=== PATIENT | female | born 1950 | race Caucasian/White ===

== ENCOUNTER → 2018-05-14 11:00 | Outpatient (CLI) | payer MEDICARE, SELFPAY ==
--- NOTE | 2018-05-14 10:43 | DI.REPORT_ITS ---
SYMPTOM/DIAGNOSIS: PAIN LEFT KNEE: Medial tibial femoral joint space narrowing is demonstrated. There is articular sclerosis. Minimal periarticular hypertrophic spurring is evident. The findings would be consistent with severe DJD.
== END ==
PROVIDERS: Visit Provider Orthopaedic Surgery
DX: M17.12 Unilateral primary osteoarthritis, left knee (principal); M25.562 Pain in left knee; G89.29 Other chronic pain
CPT/HCPCS: 73560; 20610; 99213; J1040

== ENCOUNTER → 2018-05-25 09:17 | Outpatient (CLI) | payer MEDICARE, SELFPAY ==
[2018-05-25 11:01] LABS: ALT 25 U/L (12-78); AST 24 U/L (15-37); Albumin 3.9 g/dL (3.4-5.0); Alkaline Phosphatase 94 U/L (46-116); Anion Gap 9.4 mmol/L (3-11); BUN 23 mg/dL (7-18); Bilirubin, Total 0.4 mg/dL (0.2-1.0); CO2 29.6 mmol/L (21.0-32.0); CREATININE 1.06 mg/dL (0.55-1.02); Calcium 9.4 mg/dL (8.5-10.1); Chloride 102 mmol/L (98-107); Cholesterol 231 mg/dL (50-200); Estimated GFR 51.55 (mL/min/1.73m2); Glucose 105 mg/dL (70-100); HDL Cholesterol 69 mg/dL (40-60); LDL CHOLESTEROL 142 mg/dL (<100); Potassium 4.4 mmol/L (3.5-5.1); Sodium 141 mmol/L (136-145); TSH (W/Ref FT4) 1.92 uIU/mL (0.358-3.74); Total Protein 7.9 g/dL (6.4-8.2); Triglyceride 111 mg/dL (30-150)
== END ==
DX: E78.2 Mixed hyperlipidemia (principal); I10 Essential (primary) hypertension; R63.8 Other symptoms and signs concerning food and fluid intake; E78.5 Hyperlipidemia, unspecified; G89.29 Other chronic pain; K21.9 Gastro-esophageal reflux disease without esophagitis; M25.562 Pain in left knee
CPT/HCPCS: 36415; 80053; 80061; 83721; 84443

== ENCOUNTER 2018-07-03 10:40 | Outpatient (CLI) | payer MEDICARE, SELFPAY ==
[2018-07-03 11:10] LABS: Abs Immature Grans 0.01 k/cumm (0.0-0.09); Absolute Basophil Count 0.03 k/cumm (0.0-0.2); Absolute Eosinophil Count 0.12 k/cumm (0.0-0.7); Absolute Lymphocyte Count 1.59 k/cumm (1.2-3.4); Absolute Monocyte Count 0.85 k/cumm (0.11-0.7); Absolute Neutrophil Count 6.88 k/cumm (1.2-6.7); Basophils % 0.3; Eosinophils % 1.3; HCT 41.3 % (36.0-46.0); HGB 13.2 g/dL (12.0-15.5); Immature Grans % 0.1; Lymphocytes % 16.8; Mean Corpuscular Hemoglobin 29.7 pg (27.0-33.0); Mean Platelet Volume 10.3 fL (8.0-11.0); Neutrophils % 72.5; Platelet Count 186 x1000/uL (130-400); RBC 4.44 m/cumm (4.00-5.20); RBC Distribution Width 13.2 % (11.7-14.6); White Blood Cell Count 9.48 k/cumm (4.4-10.8)
[2018-07-03 11:27] LABS: ALT 30 U/L (12-78); AST 20 U/L (15-37); Albumin 3.4 g/dL (3.4-5.0); Alkaline Phosphatase 103 U/L (46-116); Anion Gap 5.6 mmol/L (3-11); BUN 21 mg/dL (7-18); Bilirubin, Total 0.4 mg/dL (0.2-1.0); CO2 30.4 mmol/L (21.0-32.0); CREATININE 1.01 mg/dL (0.55-1.02); Calcium 9.2 mg/dL (8.5-10.1); Chloride 101 mmol/L (98-107); Estimated GFR 54.51 (mL/min/1.73m2); Glucose 94 mg/dL (70-100); Potassium 4.5 mmol/L (3.5-5.1); Sodium 137 mmol/L (136-145); Total Protein 7.4 g/dL (6.4-8.2)
== END 2018-07-03 11:00 ==
PROVIDERS: Visit Provider Internal Medicine Medical Oncology
DX: C50.912 Malignant neoplasm of unspecified site of left female breast (principal)
CPT/HCPCS: 36415; 80053; 85025

== ENCOUNTER 2018-09-03 14:24 | Outpatient (CLI) | payer MEDICARE, SELFPAY ==
[2018-09-03 15:39] LABS: Hemoglobin A1C 5.8 % (4.5-6.2)
[2018-09-03 15:40] LABS: ALT 24 U/L (12-78); AST 18 U/L (15-37); Albumin 3.7 g/dL (3.4-5.0); Alkaline Phosphatase 86 U/L (46-116); Anion Gap 10.5 mmol/L (3-11); BUN 20 mg/dL (7-18); Bilirubin, Total 0.3 mg/dL (0.2-1.0); CO2 28.5 mmol/L (21.0-32.0); Calcium 9.9 mg/dL (8.5-10.1); Chloride 100 mmol/L (98-107); Estimated GFR 49.39 (mL/min/1.73m2); Glucose 124 mg/dL (70-100); Sodium 139 mmol/L (136-145); Total Protein 7.4 g/dL (6.4-8.2)
== END 2018-09-03 14:44 ==
PROVIDERS: Visit Provider Internal Medicine
DX: R73.9 Hyperglycemia, unspecified (principal); I10 Essential (primary) hypertension; K21.9 Gastro-esophageal reflux disease without esophagitis
CPT/HCPCS: 36415; 80053; 83036

== ENCOUNTER 2019-06-17 06:28 | Outpatient (CLI) | payer MEDICARE, SELFPAY ==
[2019-06-17 08:30] LABS: ALT 24 U/L (14-59); AST 18 U/L (15-37); Albumin 3.5 g/dL (3.4-5.0); Alkaline Phosphatase 95 U/L (46-116); Anion Gap 5.3 mmol/L (3-11); BUN 23 mg/dL (7-18); Bilirubin, Total 0.4 mg/dL (0.2-1.0); CO2 32.7 mmol/L (21.0-32.0); Calcium 9.9 mg/dL (8.5-10.1); Calculated LDL 118 mg/dL; Chloride 102 mmol/L (98-107); Cholesterol 207 mg/dL (50-200); Estimated GFR 49.25 (mL/min/1.73m2); Glucose 93 mg/dL (70-100); HDL Cholesterol 55 mg/dL (40-60); Potassium 4.3 mmol/L (3.5-5.1); Sodium 140 mmol/L (136-145); Total Protein 7.1 g/dL (6.4-8.2); Triglyceride 171 mg/dL (30-150)
== END 2019-06-17 06:48 ==
DX: E78.5 Hyperlipidemia, unspecified (principal); I10 Essential (primary) hypertension; K21.9 Gastro-esophageal reflux disease without esophagitis; G47.00 Insomnia, unspecified
CPT/HCPCS: 36415; 80053; 80061; 84443

== ENCOUNTER 2019-10-19 16:00 | Outpatient (REF) | payer MEDICARE, SELFPAY ==
--- NOTE | 2019-10-19 14:30 | SKI_PTH ---
PATIENT: LAUREL MONGE LOC: [facility] U#:[id number] AGE/SX: 69/F ROOM: RE10/19/[address]: Marialuisa Murdock APRN : 1950 BED: DIS: 10/19/2019 SPEC #: [id number] RECD: 10/20/19 12:37 STATUS: DWAYNE REKaran #: [id number] MORELIA: 10/19/19 14:[address]: Marialuisa Murdock DEPT: Surgical Specimen RECD BY: Daphnie Gomez Tissues: 1 - SKIN BIOPSY(SHAVE/PUNCH) Procedures: SKIN LEVEL 4 Comments: [id number]
== END 2019-10-19 16:20 ==
LOC: LBN 16:00
DX: L82.1 Other seborrheic keratosis (principal)
CPT/HCPCS: 88305

== ENCOUNTER 2019-11-02 09:37 | Emergency (ER) | payer MEDICARE, SELFPAY ==
[2019-11-02 09:41] VITALS: BP 159/67; PULSE 106; RESP 20; TEMP 36.7; O2SAT 92
--- NOTE | 2019-11-02 09:41 | ED.GENADUL_ITS ---
Discharge Plan Disposition Patient Disposition: HOME Condition: Improving Discharge Details Chief Complaint: GenMedical Clinical Impression: Mass of left lung, Bone mass, Chronic nausea Primary Care Provider: Marialuisa Murdock ED Provider: Danae Tate Home Meds and New Rx's Prescriptions: New prochlorperazine maleate [Compazine] 10 mg tablet 10 mg PO Q6H PRN (Reason: nausea and vomiting) Qty: 10 RF: 0 Continued fluticasone propionate 50 mcg/actuation spray,suspension 2 spray NS DAILY Qty: 9.9 RF: 6 metformin 500 mg tablet extended release 24hr 500 mg PO DAILY Qty: 90 RF: 4 lorazepam 1 mg tablet 1 mg PO DAILY PRN (Reason: anxiety) Qty: 20 RF: 0 calcium carbonate-vitamin D3 1 EACH tablet 1 ea PO BID RF: 0 acetaminophen 500 MG tablet 2 tab PO TID PRNRF: 0 esomeprazole magnesium [Nexium] 40 mg capsule,delayed release(DR/EC) 40 mg PO DAILY Qty: 90 RF: 3 losartan-hydrochlorothiazide 100-25 mg tablet 1 tab PO DAILY Qty: 90 RF: 3 polyethylene glycol 3350 [Miralax] 17 gram powder in packet 17 gm PO DAILY PRN (Reason: constipation) Qty: 100 RF: 4 aspirin 81 mg Tablet,Chewable 81 mg PO BID RF: 0 lovastatin 20 mg tablet 40 mg PO DAILY RF: 0 Discharge Instructions Instructions: Acute Nausea and Vomiting (ED) Additional Instructions: You will receive a call from [facility] today to schedule a follow-up appointment with doing better tomorrow. If you do not hear from the office before 4 PM, call them to schedule this appointment for tomorrow. Take the Zofran or Compazine as needed directed for nausea and vomiting. Drink plenty of fluids and follow a bland diet of crackers, toast, applesauce, soup. Return to the emergency department at any time if you develop any worsening or new concerning symptoms. Discharge Data Discharge Physician: Danae Tate Medical Decision Making 7149 -- 69-year-old female with a history of obesity, hypertension, hyperlipidemia, GERD, breast cancer w/ L breast lumpectomy presents with nausea and decreased appetite for the past few weeks. She also stated that she has a lump to her right chest that she noticed a few weeks ago which she thinks has grown in size and is tender. She states she has lost about 10 pounds in the last few months but she states she has had not much of an appetite. She denies any fever, vomiting, diarrhea, chest pain. She does admit to intermittent shortness of breath at times as well as intermittent lower abdominal pain. She denies any urinary symptoms. She has seen her PCP recently for these complaints and was referred for an outpatient CT neck and chest which is scheduled for this . On exam, patient points to her medial clavicle as the area of a lump, it appears consistent with a bony protuberance and does not appear consistent with an absc ess, lipoma, mass. It does not appear consistent with an infection or trauma. She appears to breathe heavy at times, but she states she does not feel short of breath and she feels that she is doing this because she is nervous. Her lungs are clear. Her abdomen is soft and nontender. Normal ENT exam. Differential diagnosis includes pneumonia, gastritis, peptic ulcer disease, GERD, acute lung or abdomen abnormality. Will place an IV, bolus IV fluids, Pepcid, Compazine and obtain a CT neck, chest and abdomen. 1210 --CT notes a large mass left lower lobe concerning for neoplasm. There is also associated adenopathy and pericardial effusion. Right clavicle suspicious for metastasis. Labs reviewed and note a magnesium of 1.4, repleted. Normal troponin. Urinalysis small leukocytes, but appears contaminated. Results discussed with patient and she would prefer to go home. She states her nausea is much improved. She was was offered admission but declined. Will call PCP to arrange for outpatient follow-up. 1400 -- Case discussed with patient's PCP Marialuisa Murdock -we will follow-up with patient in the office tomorrow. Appointment made for 12:40 PM for her to discuss her results with plan for outpatient referrals to assist with diagnosis of mass. Patient was able to drink and eat here without any further nausea. She was given Compazine to go as well as prescription. She was advised to return here at anytime with any worsening symptoms. Medical Records Medical records reviewed: Yes I reviewed the patient's medical records. Imaging Data Radiologic Study: Radiologist's impression: CT NECK CHEST ABD PEL W CLINICAL HISTORY: bony lump R medial clavicle, chronic nausea TECHNIQUE: Post IV contrast. Without oral contrast. Exam is limited by the patient's body habitus and positioning of the patient's arms at her sides. COMPARISON: No exams were available for comparison FINDINGS: Neck CT: There is vague increased soft tissue density seen in the medial aspect of the right pectoral muscle, anterior to the proximal right clavicle. There is no evidence of fracture or bony destruction. An additional irregular area is seen in the anterior subcutaneous fat more toward the midline, anterior to the lower pole of the right thyroid. The thyroid itself appears normal. The parotid and submandibular glands also appear normal. The visualized portions of the sinuses and mastoid air cells appear clear. Dental work creates artifact. There are small bilateral jugular chain lymph nodes which are not definitely pathologically enlarged. There is calcification of both common carotid bulbs, left greater than right. Chest CT: There is a moderate-sized pericardial effusion. No pleural effusions are seen. There is a mass in the superior segment of the left lower lobe extending from the hilum posteriorly to the pleura. It measures 5 x 3.6 by 5 cm. There is distal bronchial obstruction and atelectasis. Additional area of vague nodularity is seen anteriorly in the left upper lobe along the pleura. There is adenopathy in the right hilar region as well as subcarinal region. Smaller lymph nodes are seen in the right paratracheal region and AP window. A ground-glass opacity is seen superiorly in the right upper lobe. There are mild underlying emphysematous changes. Abnormal lucencies are seen in T3, T6 and a question of a few other smaller lesions more inferiorly in the thoracic spine. Abdomen and pelvis CT: The liver, spleen, gallbladder, pancreas and adrenals bjorn ear normal. There is a small hiatal hernia. There are small celiac axis lymph nodes, with the largest measuring 1.5 cm. There are small renal cysts and mild bilateral renal scarring. The patient is status post hysterectomy. The bladder is unremarkable. There are few colonic diverticula. There is no ascites, bowel dilatation or inflammatory change. The aorta shows calcification but no evidence of an aneurysm. There is abnormal sclerosis within the L5 vertebral body suspicious for metastatic lesion. IMPRESSION: Large mass in the left lower lobe suspicious for primary lung carcinoma. Adenopathy and pericardial effusion are present. The soft tissue abnormality near the right clavicle is also suspicious for metastases. Bony metastases are seen in the spine. Lab Data Lab results reviewed: Yes I reviewed the patient's lab results. Labs: Laboratory Tests Range/Units 11/02/19 11/02/19 11/02/19 10:15 10:15 10:15 WBC (4.4-10.8) k/cumm 7.97 RBC (4.00-5.20) m/cumm 4.41 Hgb (12.0-15.5) g/dL 12.9 Hct (36.0-46.0) % 39.2 MCV (80-95) fL 88.9 MCH (27.0-33.0) pg 29.3 MCHC (32.0-36.0) g/dL 32.9 RDW (11.7-14.6) % 12.7 Plt Count (130-400) x1000/uL 274 MPV (8.0-11.0) fL 9.9 Immature Gran % % 0.4 Neutrophils % 81.5 Lymphocytes % 10.4 Monocytes % 6.9 Eosinophils % 0.5 Basophils % 0.3 Absolute Neutrophils (1.2-6.7) k/cumm 6.50 Absolute Lymphocytes (1.2-3.4) k/cumm 0.83 L Absolute Monocytes (0.11-0.7) k/cumm 0.55 Absolute Eosinophils (0.0-0.7) k/cumm 0.04 Absolute Basophils (0.0-0.2) k/cumm 0.02 Sodium (136-145) mmol/L 131 L Potassium (3.5-5.1) mmol/L 4.3 Chloride (98-107) mmol/L 92 L Carbon Dioxide (21.0-32.0) mmol/L 32.0 Anion Gap (3-11) mmol/L 7.0 BUN (7-18) mg/dL 12 Creatinine (0.55-1.02) mg/dL 1.10 H Estimated GFR/1.73 m2 (mL/min/1.73m2) 49.10 Glucose (74-106) mg/dL 103 Calcium (8.5-10.1) mg/dL 9.3 Magnesium (1.8-2.4) mg/dL 1.4 L Total Bilirubin (0.2-1.0) mg/dL 0.4 AST (15-37) U/L 13 L ALT (14-59) U/L 15 Alkaline Phosphatase (46-116) U/L 96 Troponin I (<0.06) ng/Ml < 0.05 Total Protein (6.4-8.2) g/dL 7.7 Albumin (3.4-5.0) g/dL 3.3 L Lipase (73-393) U/L 98 TSH (0.36-3.74) uIU/mL Urine Color (Yellow) Urine Clarity (Clear) Urine pH (5-8) Ur Specific Sheridan (1.005-1.025) Urine Protein (Negative) mg/dL Urine Ketones (Negative) mg/dL Urine Blood (Negative) Urine Nitrite (Negative) Urine Bilirubin (Negative) Urine Urobilinogen (Up TO 0.2) EU/dL Ur Leukocyte Esterase (Negative) Urine RBC (0-2) HPF Urine WBC (0-5) HPF Ur Epithelial Cells (Negative) HPF Urine Crystals (Negative) HPF Urine Bacteria (Negative) HPF Urine Casts (Negative) LPF Urine Mucus (Negative) Urine Other (Negative) Ur Culture Indicated? Urine Glucose (Negative) mg/dL Range/Units 11/02/19 11/02/19 10:15 11:25 WBC (4.4-10.8) k/cumm RBC (4.00-5.20) m/cumm Hgb (12.0-15.5) g/dL Hct (36.0-46.0) % MCV (80-95) fL MCH (27.0-33.0) pg MCHC (32.0-36.0) g/dL RDW (11.7-14.6) % Plt Count (130-400) x1000/uL MPV (8.0-11.0) fL Immature Gran % % Neutrophils % Lymphocytes % Monocytes % Eosinophils % Basophils % Absolute Neutrophils (1.2-6.7) k/cumm Absolute Lymphocytes (1.2-3.4) k/cumm Absolute Monocytes (0.11-0.7) k/cumm Absolute Eosinophils (0.0-0.7) k/cumm Absolute Basophils (0.0-0.2) k/cumm Sodium (136-145) mmol/L Potassium (3.5-5.1) mmol/L Chloride (98-107) mmol/L Carbon Dioxide (21.0-32.0) mmol/L Anion Gap (3-11) mmol/L BUN (7-18) mg/dL Creatinine (0.55-1.02) mg/dL Estimated GFR/1.73 m2 (mL/min/1.73m2) Glucose (74-106) mg/dL Calcium (8.5-10.1) mg/dL Magnesium (1.8-2.4) mg/dL Total Bilirubin (0.2-1.0) mg/dL AST (15-37) U/L ALT (14-59) U/L Alkaline Phosphatase (46-116) U/L Troponin I (<0.06) ng/Ml Total Protein (6.4-8.2) g/dL Albumin (3.4-5.0) g/dL Lipase (73-393) U/L TSH (0.36-3.74) uIU/mL 1.71 Urine Color (Yellow) Straw Urine Clarity (Clear) Sl cloudy Urine pH (5-8) 8.5 H Ur Specific Sheridan (1.005-1.025) 1.015 Urine Protein (Negative) mg/dL Negative Urine Ketones (Negative) mg/dL Negative Urine Blood (Negative) Negative Urine Nitrite (Negative) Negative Urine Bilirubin (Negative) Negative Urine Urobilinogen (Up TO 0.2) EU/dL 0.2 Ur Leukocyte Esterase (Negative) Small H Urine RBC (0-2) HPF Negative Urine WBC (0-5) HPF 3-5 Ur Epithelial Cells (Negative) HPF Many Urine Crystals (Negative) HPF Negative Urine Bacteria (Negative) HPF Moderate Urine Casts (Negative) LPF Negative Urine Mucus (Negative) Negative Urine Other (Negative) Few transitional Ur Culture Indicated? No/sq. contamination Urine Glucose (Negative) mg/dL Negative HPI General Mode of arrival: ambulatory . Date/Time Provider Initiated Documentation: 11/02/19 09:38 . Limitations to Documentation: no limitations . Information obtained by: patient . History of Present Illness 69 year old F presents to the emergency department with the chief complaint of Nausea, decreased appetite, Patient started experiencing this week(s) (3) and it has been constant. No relieving factors improve symptom(s), No exacerbating factors reported . Patient notes loss of appetite, malaise, nausea/vomiting (No vomiting) and shortness of breath (Occasional); denies chest pain, cough, diaphoresis, fever/chills, headaches, rash, seizure, syncope and weakness. Patient did receive the following treatments prior to arrival, other (Zofran) Related Data Home Medications Medication Instructions Recorded Confirmed calcium carbonate-vitamin D3 1 ea PO BID 02/19/13 11/02/19 acetaminophen 2 tab PO TID PRN 07/24/17 11/02/19 esomeprazole magnesium 40 mg 40 mg PO DAILY #90 tab-cap 05/01/19 11/02/19 capsule,delayed release fluticasone propionate 50 2 spray NS DAILY #9.9 gm 06/01/19 11/02/19 mcg/actuation nasal spray,suspension metformin 500 mg tablet,extended 500 mg PO DAILY #90 tab 06/01/19 11/02/19 release 24hr losartan 100 1 tab PO DAILY #90 tab 06/04/19 11/02/19 mg-hydrochlorothiazide 25 mg tablet lorazepam 1 mg tablet 1 mg PO DAILY PRN #20 tab 06/24/19 11/02/19 polyethylene glycol 3350 17 gram 17 gm PO DAILY PRN #100 each 06/26/19 11/02/19 oral powder packet aspirin 81 mg PO BID 11/02/19 11/02/19 lovastatin 40 mg PO DAILY 11/02/19 11/02/19 prochlorperazine maleate 10 mg PO Q6H PRN #10 tab 11/02/19 [Compazine] Previous Rx's Medication Instructions Recorded esomeprazole magnesium 40 mg 40 mg PO DAILY #90 tab-cap 05/01/19 capsule,delayed release fluticasone propionate 50 2 spray NS DAILY #9.9 gm 06/01/19 mcg/actuation nasal spray,suspension metformin 500 mg tablet,extended 500 mg PO DAILY #90 tab 06/01/19 release 24hr losartan 100 1 tab PO DAILY #90 tab 06/04/19 mg-hydrochlorothiazide 25 mg tablet lorazepam 1 mg tablet 1 mg PO DAILY PRN #20 tab 06/24/19 polyethylene glycol 3350 17 gram 17 gm PO DAILY PRN #100 each 06/26/19 oral powder packet prochlorperazine maleate 10 mg PO Q6H PRN #10 tab 11/02/19 [Compazine] Allergies Allergy/AdvReac Type Severity Reaction Status Date / Time meloxicam AdvReac Severe GI UPSET Verified 11/02/19 09:52 atorvastatin AdvReac Intermediate GI Verified 11/02/19 09:52 INTOLERANCE azithromycin AdvReac Intermediate INTOLERANCE Verified 11/02/19 09:52 simvastatin AdvReac Intermediate INTOLERANCE Verified 11/02/19 09:52 lisinopril AdvReac Mild cough Verified 11/02/19 09:52 Review of Systems All systems reviewed & are unremarkable except as noted in HPI and below Constitutional Constitutional: Reports as per HPI, Denies chills, Reports fatigue, Denies fever(s) and Reports poor appetite Eyes Eyes: Denies blurry vision ENT Ears, Nose, Mouth, and Throat: Denies dizziness, Denies sore throat and Denies throat swelling Cardiovascular Cardiovascular: Denies chest pain and Denies dyspnea Respiratory Respiratory: Denies cough and Denies dyspnea Gastrointestinal Gastrointestinal: Denies abdominal pain, Denies diarrhea, Reports nausea and Denies vomiting Genitourinary Genitourinary: Denies hematuria and Denies dysuria Musculoskeletal Musculoskeletal: Denies back pain and Denies numbness Integumentary/Breasts Skin/Breast: Denies lesions and Denies rash Neurologic Neurologic: Denies dizziness, Denies focal weakness and Denies numbness Endocrine Endocrine: Reports fatigue Allergic/Immunologic Allergic/Immunologic: Denies throat swelling [facility] Medical History Adopted Adopted (Chronic) Chest discomfort (Acute) Chronic pain of left knee (Chronic 04/11/16) She sees Dr. Gee for this. Colon polyp (Chronic 05/09/14) 04/23/14 tubular adenoma x 2 08/2017 tubular adenoma x 8 Ear pain, left (Chronic) ? 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 Nausea alone (Acute) Neck discomfort (Acute) Neck pain (Chronic) Neoplasm of breast Otitis externa (Acute) Phlebitis (Resolved 02/19/13) Seasonal allergies (Acute) Seborrheic keratosis (Acute) Tubular adenoma Tubular adenoma (Chronic 08/12/17) Varicose veins of lower extremity Varicose veins of lower extremity (Chronic) h/o phlebitis Weight loss, non-intentional (Acute) Surgical History Abdominal hysterectomy BSO 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; DCIS; lobular CA in situ Colonoscopy - MAC (08/12/17) EGD - MAC (08/30/14) Social History Smoking/Tobacco Use Status: Former Tobacco Use Quit Date: 10/07/84 Tobacco: How many years used: 20 Second Hand Exposure: Yes Alcohol Intake: former Drug use: Never Substance use type: does not use Counseling given: No Counseling provided: none Adopted: Yes Caregiver/Support person: No Household members: spouse Housing: house Communication Needs: None Do you need help understanding health information?: Never Pets and animals: Yes Pets and animals: cat(s) Current gender identity: female What is your relationship status?: How often do you talk on the phone with friends or family?: once per week How often do you get together with friends or relatives?: once per week How often do you attend evangelical or yazidi services?: decline to answer Do you belong to any clubs or organized social groups?: no Panel score (0-1 are the most socially isolated patients): 1 What type of physical activity do you participate in: decline to answer Duration: decline to answer Frequency: decline to answer Keli/Roman Catholic: Buddhist Special keli needs: No Seatbelt use: always Drive intox or ride w/intox bus driver: No Do you feel safe at home: Yes Do you feel safe in your relationship?: Yes Exam Const General: cooperative, healthy appearing and no acute distress HENMT Head: normal to inspection Ears: hearing grossly normal bilaterally, external ears normal and TM's normal bilaterally General nose exam: external nose normal Face and sinus: normal facial exam Throat: posterior oropharynx normal Eyes General: appearance normal, both eyes and all related structures EOM: EOM intact bilaterally Neck Neck: normal visual inspection and No submandibular swelling Lymphatic: no lymphadenopathy noted Chest Chest: normal inspection of the chest and no tenderness Chest/axillae images: 1. An approximate 2 x 3 cm bony protuberance right medial clavicle. No overlying erythema, edema, ecchymosis, rash or lesions. No crepitus or step- off. Resp Effort & Inspection: normal respiratory effort and able to speak in complete sentences Auscultation: clear to auscultation bilaterally Cardio Rate: regular rate Rhythm: regular rhythm GI Inspection: normal to inspection Palpation: soft, not firm, not rigid and nontender Auscultation: normal bowel sounds Back/Spine/Pelvis Thoracic/Lumbar Spine: thoracic and lumbar spine normal to inspection Skin General skin exam: no rashes or lesions noted Neuro General: alert, awake and oriented x3 Cognition: normal cognition Speech: speech normal Motor: muscle tone normal throughout Sensory Exam: no sensory deficits noted Extrem General: normal to inspection, full ROM, normal capillary refill, no calf tenderness bilaterally and no edema Psych Appearance: grossly normal Mental Status: mental status grossly normal Speech and Movement: speech and movement normal Affect: normal affect
[2019-11-02] MEDS: Normal Saline 1,000 ML 1000 ML IV (10:23)
[2019-11-02] MEDS: Prochlorperazine 10 MG/2 ML VIAL IVP (10:23)
[2019-11-02] MEDS: FAMOTIDINE 20 MG/50 ML BAG 200 MG IVPB (10:23)
[2019-11-02 10:43] LABS: Abs Immature Grans 0.03 k/cumm (0.0-0.09); Absolute Basophil Count 0.02 k/cumm (0.0-0.2); Absolute Eosinophil Count 0.04 k/cumm (0.0-0.7); Absolute Lymphocyte Count 0.83 k/cumm (1.2-3.4); Absolute Monocyte Count 0.55 k/cumm (0.11-0.7); Basophils % 0.3; Eosinophils % 0.5; HCT 39.2 % (36.0-46.0); HGB 12.9 g/dL (12.0-15.5); Immature Grans % 0.4 %; Lymphocytes % 10.4; Mean Corp. HGB Concentration 32.9 g/dL (32.0-36.0); Mean Corpuscular Hemoglobin 29.3 pg (27.0-33.0); Mean Corpuscular Volume 88.9 fL (80-95); Mean Platelet Volume 9.9 fL (8.0-11.0); Monocytes % 6.9; Neutrophils % 81.5; Platelet Count 274 x1000/uL (130-400); RBC 4.41 m/cumm (4.00-5.20); RBC Distribution Width 12.7 % (11.7-14.6); White Blood Cell Count 7.97 k/cumm (4.4-10.8)
[2019-11-02 10:51] LABS: ALT 15 U/L (14-59); AST 13 U/L (15-37); Albumin 3.3 g/dL (3.4-5.0); Alkaline Phosphatase 96 U/L (46-116); BUN 12 mg/dL (7-18); Bilirubin, Total 0.4 mg/dL (0.2-1.0); Calcium 9.3 mg/dL (8.5-10.1); Chloride 92 mmol/L (98-107); Glucose 103 mg/dL (74-106); Magnesium 1.4 mg/dL (1.8-2.4); Potassium 4.3 mmol/L (3.5-5.1); Sodium 131 mmol/L (136-145); Total Protein 7.7 g/dL (6.4-8.2); Troponin I < 0.05 ng/Ml (<0.06)
[2019-11-02] MEDS: Omnipaque 350 MG/ML 50 ML BTL IJ (11:09)
[2019-11-02] MEDS: Omnipaque 350 MG/ML 100 ML BTL IJ (11:09)
--- NOTE | 2019-11-02 11:10 | DI.CT_ITS ---
EXAM: CT NECK CHEST ABD PEL W CLINICAL HISTORY: bony lump R medial clavicle, chronic nausea TECHNIQUE: Post IV contrast. Without oral contrast. Exam is limited by the patient's body habitus and positioning of the patient's arms at her sides. COMPARISON: No exams were available for comparison FINDINGS: Neck CT: There is vague increased soft tissue density seen in the medial aspect of the right pectora l muscle, anterior to the proximal right clavicle. There is no evidence of fracture or bony destruct ion. An additional irregular area is seen in the anterior subcutaneous fat more toward the midline, anterior to the lower pole of the right thyroid. The thyroid itself appears normal. The parotid and submandibular glands also appear normal. The visualized portions of the sinuses and mastoid air myra ls appear clear. Dental work creates artifact. There are small bilateral jugular chain lymph nodes which are not definitely pathologically enlarged. There is calcification of both common carotid bulb s, left greater than right. Chest CT: There is a moderate-sized pericardial effusion. No pleural effusions are seen. There is a mass in the superior segment of the left lower lobe extending from the hilum posteriorly to the pleu ra. It measures 5 x 3.6 by 5 cm. There is distal bronchial obstruction and atelectasis. Additional area of vague nodularity is seen anteriorly in the left upper lobe along the pleura. There is adeno duc in the right hilar region as well as subcarinal region. Smaller lymph nodes are seen in the ri ght paratracheal region and AP window. A ground-glass opacity is seen superiorly in the right upper lobe. There are mild underlying emphysematous changes. Abnormal lucencies are seen in T3, T6 and a question of a few other smaller lesions more inferiorly in the thoracic spine. Abdomen and pelvis CT: The liver, spleen, gallbladder, pancreas and adrenals appear normal. There is a small hiatal hernia. There are small celiac axis lymph nodes, with the largest measuring 1.5 cm. There are small renal cysts and mild bilateral renal scarring. The patient is status post hysterect guero. The bladder is unremarkable. There are few colonic diverticula. There is no ascites, bowel di latation or inflammatory change. The aorta shows calcification but no evidence of an aneurysm. Ther e is abnormal sclerosis within the L5 vertebral body suspicious for metastatic lesion. IMPRESSION: Large mass in the left lower lobe suspicious for primary lung carcinoma. Adenopathy and pericardial effusion are present. The soft tissue abnormality near the right clavicle is also suspicious for me tastases. Bony metastases are seen in the spine.
[2019-11-02] MEDS: MAGNESIUM SULFATE 1 GM/100 ML BAG IVPB (11:32)
[2019-11-02 11:51] LABS: Bilirubin Negative (Negative); Blood Negative (Negative); Clarity Sl Cloudy (Clear); Glucose Negative (Negative); Ketones Negative (Negative); Leukocyte Esterase Small (Negative); Nitrite Negative (Negative); Specific Gravity 1.015 (1.005-1.025); Urobilinogen 0.2 EU/dL (Up TO 0.2); pH 8.5 (5-8)
[2019-11-02 12:07] LABS: Bacteria Moderate HPF (Negative); C & S Indicated? No/Sq. Contamination; Casts Negative LPF (Negative); Crystals Negative HPF (Negative); Epithelial Cells Many HPF (Negative); Mucus Negative (Negative); Other Cells Few Transitional (Negative); RBC Negative HPF (0-2)
[2019-11-02 12:34] LABS: TSH (W/Ref FT4) 1.71 uIU/mL (0.36-3.74)
[2019-11-02 12:41] LABS: Lipase 98 U/L (73-393)
[2019-11-02 14:17] VITALS: BP 134/56; PULSE 78; RESP 20; TEMP 36.4; O2SAT 95
[2019-11-02] MEDS: Prochlorperazine 10 MG TAB 40 MG PO (14:22)
== END 2019-11-02 14:25 | disposition home or self-care (01) ==
PROVIDERS: Emergency Provider Physician Assistant
DX: R91.8 Other nonspecific abnormal finding of lung field (principal); R93.7 Abnormal findings on diagnostic imaging of other parts of musculoskeletal system; R59.1 Generalized enlarged lymph nodes; R11.0 Nausea; R63.0 Anorexia; E83.42 Hypomagnesemia; I10 Essential (primary) hypertension; Z85.3 Personal history of malignant neoplasm of breast
CPT/HCPCS: 36415; 70491; 74177; 80053; 83690; 96361; 96365; 96367; 96375; 99285; 71260; 81003; 81015; 83735; 84443; 84484; 85025; J0780; J3475; J3490; Q9967

== ENCOUNTER 2019-11-02 19:07 | Inpatient (IN) | payer MEDICARE, SELFPAY ==
[2019-11-02 19:14] VITALS: BP 138/100; PULSE 109; RESP 24; TEMP 36.4; O2SAT 98
[2019-11-02] MEDS: Normal Saline 1,000 ML 1000 ML IV (19:41)
[2019-11-02] MEDS: Ondansetron 4 MG/2 ML VIAL IVP (19:42)
[2019-11-02 19:46] LABS: Abs Immature Grans 0.02 k/cumm (0.0-0.09); Absolute Basophil Count 0.02 k/cumm (0.0-0.2); Absolute Eosinophil Count 0.07 k/cumm (0.0-0.7); Absolute Lymphocyte Count 0.86 k/cumm (1.2-3.4); Absolute Monocyte Count 0.67 k/cumm (0.11-0.7); Absolute Neutrophil Count 7.04 k/cumm (1.2-6.7); Basophils % 0.2; Eosinophils % 0.8; HCT 38.3 % (36.0-46.0); HGB 12.9 g/dL (12.0-15.5); Immature Grans % 0.2 %; Lymphocytes % 9.9; Mean Corp. HGB Concentration 33.7 g/dL (32.0-36.0); Mean Corpuscular Hemoglobin 29.7 pg (27.0-33.0); Mean Platelet Volume 9.5 fL (8.0-11.0); Monocytes % 7.7; Neutrophils % 81.2; Platelet Count 291 x1000/uL (130-400); RBC 4.35 m/cumm (4.00-5.20); RBC Distribution Width 12.8 % (11.7-14.6); White Blood Cell Count 8.68 k/cumm (4.4-10.8)
--- NOTE | 2019-11-02 19:50 | W.ED.GENAD ---
Discharge Plan Discharge Details Chief Complaint: Nausea/Vomit/Diar Admit Date/Time: 11/02/19 20:40 Admit Provider: Herman Zafar Attending Provider: Herman Zafar Primary Care Provider: Marialuisa Murdock ED Provider: Stephany Morrison Discharge Data Discharge Date/Time-TO BE ENTERED AT DEPARTURE: 11/02/19 21:20 Medical Decision Making This is a 69-year-old patient presenting to the emergency room for reevaluation after recent discharge. Patient was seen in the emergency room earlier today for nausea and vomiting difficulty tolerating p.o. fluids, fatigue and weakness. Patient reports significant fatigue as well as decreased appetite in the last month. Patient reports weight loss recently. Patient does report a cough since May. Patient's evaluation earlier in the day reveals a large lung mass with likely bony metastases and soft tissue involvement near the right clavicle. This was unknown to the patient. Patient was discharged with nausea medication and reports persistent nausea and vomiting at home. Patient was hydrated IV but is concerned that she feels dehydrated again. Patient was offered admission at her evaluation earlier in the day and declined. Patient is requesting admission at this time. Patient does not have obvious association with diarrhea. Patient denies abdominal pain. Please see previous providers note in HPI for additional details regarding patient's visit earlier in the day. Spoke with hospitalist regarding patient's request of admission after failed management of nausea and vomiting at home with oral medications. He will evaluate the patient in the emergency room. After hospitalist evaluation in the emergency room he did request addition of head CT to rule out any mets which could be causing nausea and vomiting. CT ordered. He will accept patient's admission to the hospital. Patient agrees with plan of care of admission. [facility] General Date/Time Provider Initiated Documentation: 11/02/19 19:11. HPI Narrative: Is a 69-year-old patient presenting to the emergency room for concerns of dry heaving and vomiting. Patient was seen in the emergency room earlier today for nausea and vomiting for the last 3 days. Patient ultimately had CT scan of neck, chest, abdomen and pelvis revealing a mass in her lung and lymph node involvement as well as possible metastases to spine. patient reports predominantly dry heaving. Patient reports she had been using Zofran at home with some relief and vomiting initially now reporting less effective. Patient was provided Compazine, magnesium and Pepcid today for symptomatic relief. She went home she did take Compazine at approximately 2:00 then had some scrambled eggs and dry toast and reports vomiting despite use of Compazine. Patient reports she did receive IV fluid this afternoon but continues to feel mildly dehydrated. Patient reports cough over the last several months, decrease in appetite for the last 3 to 4 weeks and significant fatigue for the last several weeks. Patient reports she has very minimal activities at home in the last few weeks. Patient denies difficulty breathing. Patient does report pleuritic type chest pain worse when coughing. Patient denies abdominal pain. Denies any extremity complaints. No other concerns or complaints at this time. Related Data Home Medications Medication Instructions Recorded Confirmed calcium carbonate-vitamin D3 1 ea PO BID 02/19/13 11/02/19 acetaminophen 2 tab PO TID PRN 07/24/17 11/02/19 esomeprazole magnesium 40 mg 40 mg PO DAILY #90 tab-cap 05/01/19 11/02/19 capsule,delayed release fluticasone propionate 50 2 spray NS DAILY #9.9 gm 06/01/19 11/02/19 mcg/actuation nasal spray,suspension metformin 500 mg tablet,extended 500 mg PO DAILY #90 tab 06/01/19 11/02/19 release 24hr losartan 100 1 tab PO DAILY #90 tab 06/04/19 11/02/19 mg-hydrochlorothiazide 25 mg tablet lorazepam 1 mg tablet 1 mg PO DAILY PRN #20 tab 06/24/19 11/02/19 polyethylene glycol 3350 17 gram 17 gm PO DAILY PRN #100 each 06/26/19 11/02/19 oral powder packet aspirin 81 mg PO BID 11/02/19 11/02/19 lovastatin 40 mg PO DAILY 11/02/19 11/02/19 prochlorperazine maleate 10 mg PO Q6H PRN #10 tab 11/02/19 11/02/19 [Compazine] Previous Rx's Medication Instructions Recorded esomeprazole magnesium 40 mg 40 mg PO DAILY #90 tab-cap 05/01/19 capsule,delayed release fluticasone propionate 50 2 spray NS DAILY #9.9 gm 06/01/19 mcg/actuation nasal spray,suspension metformin 500 mg tablet,extended 500 mg PO DAILY #90 tab 06/01/19 release 24hr losartan 100 1 tab PO DAILY #90 tab 06/04/19 mg-hydrochlorothiazide 25 mg tablet lorazepam 1 mg tablet 1 mg PO DAILY PRN #20 tab 06/24/19 polyethylene glycol 3350 17 gram 17 gm PO DAILY PRN #100 each 06/26/19 oral powder packet prochlorperazine maleate 10 mg PO Q6H PRN #10 tab 11/02/19 [Compazine] Allergies Allergy/AdvReac Type Severity Reaction Status Date / Time prochlorperazine Allergy Intermediate Agitation Unverified 11/02/19 21:09 [From Compazine] meloxicam AdvReac Severe GI UPSET Verified 11/02/19 19:19 atorvastatin AdvReac Intermediate GI Verified 11/02/19 19:19 INTOLERANCE azithromycin AdvReac Intermediate INTOLERANCE Verified 11/02/19 19:19 simvastatin AdvReac Intermediate INTOLERANCE Verified 11/02/19 19:19 lisinopril AdvReac Mild cough Verified 11/02/19 19:19 General Stated Complaint: Nausea/Vomit/Diar OSMEL: 3 Review of Systems All systems reviewed & are unremarkable except as noted in HPI and below Constitutional Constitutional: Denies chills, Reports fatigue, Denies fever(s) and Reports malaise ENT Ears, Nose, Mouth, and Throat: Denies sore throat Cardiovascular Cardiovascular: Denies chest pain at rest, Denies syncope and Denies dyspnea Respiratory Respiratory: Reports cough, Reports pain with cough and Denies dyspnea Gastrointestinal Gastrointestinal: Denies abdominal pain, Denies diarrhea, Reports nausea and Reports vomiting Genitourinary Genitourinary: Denies dysuria Neurologic Neurologic: Denies syncope Endocrine Endocrine: Reports fatigue [facility] Medical History (Updated 11/04/19 @ 09:52 by Yamileth Bueno MD) Adopted (Chronic) Chest discomfort (Acute) Chronic pain of left knee (Chronic 04/11/16) She sees Dr. Gee for this. Colon polyp (Chronic 05/09/14) 04/23/14 tubular adenoma x 2 08/2017 tubular adenoma x 8 Denial as mental defense mechanism (Chronic) helps her cope; she is self-aware of her denial Ear pain, left (Chronic) ? 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) Metastatic cancer to spine (Acute) Nausea alone (Acute) Neck discomfort (Acute) Neck pain (Chronic) Neoplasm of breast Otitis externa (Acute) Palliative care patient (Acute) Phlebitis (Resolved 02/19/13) Seasonal allergies (Acute) Seborrheic keratosis (Acute) Tubular adenoma Tubular adenoma (Chronic 08/12/17) Varicose veins of lower extremity Varicose veins of lower extremity (Chronic) h/o phlebitis Weight loss, non-intentional (Acute) Surgical History (Updated 11/04/19 @ 09:30 by Yamileth Bueno MD) Abdominal hysterectomy BSO 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 Granddaughter No problems noted. Social History (Updated 11/04/19 @ 09:35 by Yamileth Bueno MD) Smoking/Tobacco Use Status: Former Tobacco Use Quit Date: 10/07/84 Tobacco: How many years used: 20 Second Hand Exposure: Yes Alcohol Intake: former Drug use: Never Substance use type: does not use Counseling given: No Counseling provided: none Adopted: Yes Caregiver/Support person: Yes Household members: spouse Housing: house Number of Children: 1 number of grandchildren: 2 Communication Needs: Corrective Lenses Education Level: high school Do you need help understanding health information?: Often Pets and animals: Yes (Selam De La Garzaon cats x 2) Pets and animals: cat(s) Current gender identity: female What is your relationship status?: How often do you talk on the phone with friends or family?: once per week How often do you get together with friends or relatives?: once per week How often do you attend yarsani or gnosticist services?: decline to answer Do you belong to any clubs or organized social groups?: no Panel score (0-1 are the most socially isolated patients): 1 What type of physical activity do you participate in: walking, occasional exercise and sedentary lifestyle Duration: < 15 minutes/day Frequency: 1-2 times per week Keli/Temple: Zoroastrian Special keli needs: No Seatbelt use: always Drive intox or ride w/intox wedding transportation 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 They are very happy. They love to go for long car rides together. Some estrangement from daughter, unclear. Exam Narrative Exam Narrative: CONST: Patient in no acute distress. Alert and oriented. HENMT: Head nomocephalic, normal to inspection. Atraumatic. Hearing grossly normal. Mildly dry mucous membranes. No significant pharyngeal erythema. No exudates. EYES: General normal appearance. Alignment normal. Eyelids normal. Conjunctiva normal. NECK: Normal visual inspection. FROM. Trachea midline. No Midline tenderness. CHEST: Normal insepection of the chest. RESP: Normal respiratory effort. Speaking full sentences. No cough. No audible wheezing. No retractions. Breath sounds are equal bilaterally, scattered wheezes are present. CARDIO: No JVD. Regular rate and rhythm. GI: Abdomen soft, nontender. No peritoneal signs, rebound or guarding. Course Vital Signs Vital signs: Vital Signs Temperature 36.4 C 11/02/19 19:14 Pulse 109 H 11/02/19 19:14 Respiratory Rate 24 11/02/19 19:14 Blood Pressure 138/100 H 11/02/19 19:14 Pulse Oximetry 98 11/02/19 19:14 Temperature 36.4 C 11/02/19 19:14 Temperature Source Skin 11/02/19 19:14 Pulse 109 H 11/02/19 19:14 Respiratory Rate 24 11/02/19 19:14 Respiratory Effort 11/02/19 19:20 Blood Pressure 138/100 H 11/02/19 19:14 Pulse Oximetry 98 11/02/19 19:14 Oxygen Delivery Method Room Air 11/02/19 19:14 Oxygen Flow Rate 0 11/02/19 19:14 Pain Level 9 11/02/19 19:14 Lab/Test Results Lab/Test Results: Laboratory Tests Range/Units 11/02/19 19:35 WBC (4.4-10.8) k/cumm 8.68 RBC (4.00-5.20) m/cumm 4.35 Hgb (12.0-15.5) g/dL 12.9 Hct (36.0-46.0) % 38.3 MCV (80-95) fL 88.0 MCH (27.0-33.0) pg 29.7 MCHC (32.0-36.0) g/dL 33.7 RDW (11.7-14.6) % 12.8 Plt Count (130-400) x1000/uL 291 MPV (8.0-11.0) fL 9.5 Immature Gran % % 0.2 Neutrophils % 81.2 Lymphocytes % 9.9 Monocytes % 7.7 Eosinophils % 0.8 Basophils % 0.2 Absolute Neutrophils (1.2-6.7) k/cumm 7.04 H Absolute Lymphocytes (1.2-3.4) k/cumm 0.86 L Absolute Monocytes (0.11-0.7) k/cumm 0.67 Absolute Eosinophils (0.0-0.7) k/cumm 0.07 Absolute Basophils (0.0-0.2) k/cumm 0.02
[2019-11-02 20:03] LABS: ALT 15 U/L (14-59); AST 14 U/L (15-37); Albumin 3.3 g/dL (3.4-5.0); Alkaline Phosphatase 95 U/L (46-116); Anion Gap 6.8 mmol/L (3-11); BUN 11 mg/dL (7-18); Bilirubin, Total 0.3 mg/dL (0.2-1.0); CO2 30.2 mmol/L (21.0-32.0); CREATININE 1.08 mg/dL (0.55-1.02); Calcium 9.2 mg/dL (8.5-10.1); Chloride 96 mmol/L (98-107); Estimated GFR 50.16 (mL/min/1.73m2); Glucose 111 mg/dL (74-106); Potassium 3.8 mmol/L (3.5-5.1); Sodium 133 mmol/L (136-145); Total Protein 7.5 g/dL (6.4-8.2)
--- NOTE | 2019-11-02 20:29 | W.PM.HP.N ---
Date of service: 11/02/19 Time of Service: 20:29 Assessment and Plan Assessment and plan (1) Nausea: Status: Acute Assessment and plan: Nausea. No specific etiology evident at present but have to presume likely related to lung mass -- presumably lung cancer. In this regard I might check head CT to make sure no brain lesions, which could be contributing to nausea, but notably no headache. Otherwise will treat with prn Zoifran and IVF for now. As to lung lesion will consult surgery and tissue diagnosis -- bronchoscopy versus IR. Reviewed Advance directives, requests full code. History of Present Illness History of Present Illness Chief Complaint: nausea Narrative: 69 female with h/o breast cancer 2008, s/p lumpectormy/XRT; and former 2 PPD smoker -- seen earlier today with some 3-4 weeks of progressive anorexia and nausea. No abdominal pain or diarrhea. W/u of note for CT showing large LLL mass with hilar nodes, perocardial effusion and probable L5 metastatic lesion. patient sent home on oral antiemetics but returns with persistent nausea. In ER received Zofran with good effect. is admitted for ongoing management Again, mandi abdominal pain. Does note a dry cough over the past 6 months. Review of Systems All systems reviewed & are unremarkable except as noted in HPI and below PFSH Medical History Adopted Adopted (Chronic) Chest discomfort (Acute) Chronic pain of left knee (Chronic 04/11/16) She sees Dr. Gee for this. Colon polyp (Chronic 05/09/14) 04/23/14 tubular adenoma x 2 08/2017 tubular adenoma x 8 Ear pain, left (Chronic) ? cervical radiculopathy (Dr Tapia) Essential hypertension Essential hypertension (Chronic) Fatigue (Acute) Gastroesophageal reflux disease (Chronic 08/30/14) EGD-2013, mild inflammation GERD (gastroesophageal reflux disease) Hyperlipidemia (Chronic 02/19/13) Lesion of nose (Chronic 08/01/16) Lumbago (Chronic) Malignant neoplasm of female breast (Resolved 04/26/09) 04/14 [facility] [place] AND LOBULAR CARCINOMA IN SITU Nausea alone (Acute) Neck discomfort (Acute) Neck pain (Chronic) Neoplasm of breast Otitis externa (Acute) Phlebitis (Resolved 02/19/13) Seasonal allergies (Acute) Seborrheic keratosis (Acute) Tubular adenoma Tubular adenoma (Chronic 08/12/17) Varicose veins of lower extremity Varicose veins of lower extremity (Chronic) h/o phlebitis Weight loss, non-intentional (Acute) Surgical History Abdominal hysterectomy BSO 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; DCIS; lobular CA in situ Colonoscopy - MAC (08/12/17) EGD - MAC (08/30/14) Social History Smoking/Tobacco Use Status: Former Tobacco Use Quit Date: 10/07/84 Tobacco: How many years used: 20 Second Hand Exposure: Yes Alcohol Intake: former Drug use: Never Substance use type: does not use Counseling given: No Counseling provided: none Adopted: Yes Caregiver/Support person: No Household members: spouse Housing: house Communication Needs: None Do you need help understanding health information?: Never Pets and animals: Yes Pets and animals: cat(s) Current gender identity: female What is your relationship status?: How often do you talk on the phone with friends or family?: once per week How often do you get together with friends or relatives?: once per week How often do you attend buddhist or druze services?: decline to answer Do you belong to any clubs or organized social groups?: no Panel score (0-1 are the most socially isolated patients): 1 What type of physical activity do you participate in: decline to answer Duration: decline to answer Frequency: decline to answer Keli/Buddhism: Quaker Special keli needs: No Seatbelt use: always Drive intox or ride w/intox 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: No Do you feel safe at home: Yes Do you feel safe in your relationship?: Yes Meds Home Medications and Allergies Home Medications Medication Instructions Recorded Confirmed Type calcium carbonate-vitamin D3 1 ea PO BID 02/19/13 11/02/19 History acetaminophen 2 tab PO TID PRN 07/24/17 11/02/19 History esomeprazole magnesium 40 mg 40 mg PO DAILY #90 tab-cap 05/01/19 11/02/19 Rx capsule,delayed release fluticasone propionate 50 2 spray NS DAILY #9.9 gm 06/01/19 11/02/19 Rx mcg/actuation nasal spray,suspension metformin 500 mg tablet,extended 500 mg PO DAILY #90 tab 06/01/19 11/02/19 Rx release 24hr losartan 100 1 tab PO DAILY #90 tab 06/04/19 11/02/19 Rx mg-hydrochlorothiazide 25 mg tablet lorazepam 1 mg tablet 1 mg PO DAILY PRN #20 tab 06/24/19 11/02/19 Rx polyethylene glycol 3350 17 gram 17 gm PO DAILY PRN #100 each 06/26/19 11/02/19 Rx oral powder packet aspirin 81 mg PO BID 11/02/19 11/02/19 History lovastatin 40 mg PO DAILY 11/02/19 11/02/19 History prochlorperazine maleate 10 mg PO Q6H PRN #10 tab 11/02/19 11/02/19 Rx [Compazine] Allergies Allergy/AdvReac Type Severity Reaction Status Date / Time meloxicam AdvReac Severe GI UPSET Verified 11/02/19 19:19 atorvastatin AdvReac Intermediate GI Verified 11/02/19 19:19 INTOLERANCE azithromycin AdvReac Intermediate INTOLERANCE Verified 11/02/19 19:19 simvastatin AdvReac Intermediate INTOLERANCE Verified 11/02/19 19:19 lisinopril AdvReac Mild cough Verified 11/02/19 19:19 Exam Narrative Exam Narrative: 138/100, 109, 24, 36.4. To my exam pulsus paradoxus of 4 mm. HEENT AT/NC; neck supple; lungs diminished BS, few rhonchi on left; heart RRR w/o MRG; abdomen soft NT; extremities w/o edema; neuro Ox3, non-focal Results Labs Result diagrams: 11/02/19 19:35 11/02/19 19:35 Labs: Laboratory Results - last 24 hr 11/02/19 11/02/19 19:35 19:35 WBC 8.68 RBC 4.35 Hgb 12.9 Hct 38.3 MCV 88.0 MCH 29.7 MCHC 33.7 RDW 12.8 Plt Count 291 MPV 9.5 Immature Gran % 0.2 Neutrophils % 81.2 Lymphocytes % 9.9 Monocytes % 7.7 Eosinophils % 0.8 Basophils % 0.2 Absolute Neutrophils 7.04 H Absolute Lymphocytes 0.86 L Absolute Monocytes 0.67 Absolute Eosinophils 0.07 Absolute Basophils 0.02 Sodium 133 L Potassium 3.8 Chloride 96 L Carbon Dioxide 30.2 Anion Gap 6.8 BUN 11 Creatinine 1.08 H Estimated GFR/1.73 m2 50.16 Glucose 111 H Calcium 9.2 Total Bilirubin 0.3 AST 14 L ALT 15 Alkaline Phosphatase 95 Total Protein 7.5 Albumin 3.3 L Last Vital Signs Temp 36.4 C 11/02/19 19:14 Pulse 109 H 11/02/19 19:14 Resp 24 11/02/19 19:14 BP 138/100 H 11/02/19 19:14 Pulse Ox 98 11/02/19 19:14
[2019-11-02 21:13] VITALS: BP 161/64; PULSE 80; RESP 16; O2SAT 4
--- NOTE | 2019-11-02 21:29 | DI.CT_ITS ---
EXAM: CT HEAD WO CLINICAL HISTORY: nausea, r/o mets or intracranial pathology TECHNIQUE: Noncontrast COMPARISON: No exams were available for comparison FINDINGS: No intracranial hemorrhage, mass or infarct is seen. There is no significant atrophy. The ventricl es are normal in size. No skull fracture or lytic or blastic bony lesions are seen. The orbits, sin uses and mastoid air cells are unremarkable. There are minimal white matter changes likely reflectin g small vessel disease. IMPRESSION: No acute abnormality. No evidence of brain metastases.
[2019-11-02 21:48] VITALS: BP 130/80; PULSE 87; RESP 16; TEMP 37.1; O2SAT 95
--- NOTE | 2019-11-02 21:48 | DI.VRAD_ITS ---
PROCEDURE INFORMATION: Exam: CT Head Without Contrast Exam date and time: 11/02/2019 9:26 PM Age: 69 years old Clinical indication: Screening exam; Patient HX: R/O mets TECHNIQUE: Imaging protocol: Computed tomography of the head without contrast. COMPARISON: No relevant prior studies available. FINDINGS: Brain: No mass or edema.. No hemorrhage. Unremarkable white matter. No mass effect. Ventricles: Normal. No ventriculomegaly. Bones/joints: Unremarkable. No acute fracture. No osteolytic or blastic bone lesions. Sinuses: Visualized sinuses are unremarkable. No fluid levels. Mastoid air cells: Visualized mastoid air cells are well aerated. Soft tissues: Unremarkable. IMPRESSION: 1. No acute intracranial abnormality. 2. Age-related atrophy. 3. No mass features. 4. No suspicious skull lesions. Dictated and Authenticated by: Isac Mitchell MD. Ordering:JESSICA Hammond MD
[2019-11-02] MEDS: Enoxaparin 40 MG/0.4 ML SYR SC (21:59)
[2019-11-02] MEDS: LORazepam 1 MG TAB PO (22:51)
[2019-11-02] MEDS: Lactated Ringers 1,000 ML 125 ML IV (22:51)
[2019-11-03 00:04] VITALS: BP 104/67; PULSE 78; RESP 16; TEMP 36.6; O2SAT 95
[2019-11-03 06:51] LABS: BUN 10 mg/dL (7-18); CREATININE 0.93 mg/dL (0.55-1.02); Calcium 9.3 mg/dL (8.5-10.1); Chloride 100 mmol/L (98-107); Glucose 86 mg/dL (74-106); Potassium 4.1 mmol/L (3.5-5.1); Sodium 137 mmol/L (136-145)
[2019-11-03 07:00] VITALS: BP 155/82; PULSE 76; RESP 17; TEMP 36.6; O2SAT 95
[2019-11-03] MEDS: Fluticasone NASAL SPRAY 16 GM BTL NS (08:18)
[2019-11-03] MEDS: Esomeprazole 40 MG CAPCR PO (08:18)
[2019-11-03] MEDS: Aspirin 81 MG CHEW PO ×2 (08:18→20:12)
--- NOTE | 2019-11-03 12:37 | INITIAL_ITS ---
Care Management Initial Assess REASON FOR HOSPITALIZATION:: Nausea, Lung Mass PAST MEDICAL HISTORY/PAST SURGICAL HISTORY:: 69 female with h/o breast cancer 2009, s/p lumpectormy/XRT; and former 2 PPD smoker -- seen earlier today with some 3-4 weeks of progressive anorexia and nausea. No abdominal pain or diarrhea. W/u of note for CT showing large LLL mass with hilar nodes, perocardial effusion and probable L5 metastatic lesion. Adopted, chest discomfort, chronic pain of left knee, colon polyp, left ear pain, essential hypertension, fatigue, GERD, gastroesophageal reflux disease, Hyperlipidemia, lesion of nose, lumbago, malignant neoplasm of female breast, nausea, neck discomfort, neck pain, otitis externa, phlebitis, seasonal allergies, suborrheic keratosis, tubular adenoma, varicose veins of LE, non-intentional weight loss, abdominal hysterectomy, biopsy of breast, colonoscopy, EGD. PREVIOUS FUNCTIONAL STATUS/SOCIAL/FAMILY SUPPORTS:: Sindi is retired and resides in [place] with her , Herman. Their daughter resides in [place], [place]. She is independent with all ADLs in the community. CURRENT FUNCTIONAL STATUS:: Sindi is sitting up in her chair, her by her side. There is another adult female in the room as well. CM reviewed CM role which Sindi was receptive to. She verbalized understanding of her treatment plan and requested word search which was provided. ADVANCE DIRECTIVES:: DPOA: Herman Hussein Has patient been provided with information about the portal?: Yes Did the patient sign up for the portal?: Yes (Previously) CODE STATUS:: Full Code INSURANCE COVERAGE / FINANCIAL ISSUES:: Medicare. Financial Asst 100-07/06/20 CURRENT HOME/COMMUNITY SERVICES/EQUIPMENT:: Grab bars, tub bench PRIMARY CARE PHYSICIAN:: Marialuisa Murdock POTENTIAL DISCHARGE NEEDS:: Palliative Care consult, follow up appointments. PATIENT/FAMILY EDUCATION NEEDS:: Review of discharge instructions, discuss Ask Me Three. ANTICIPATED BARRIERS TO DISCHARGE:: None identified at this time. TRANSPORTATION:: Via private vehicle with her . PLAN:: Sindi will continue to be closely monitored and treated for nausea. She will meet with Dr. Bueno for Palliative Care Consult. She will return home when ready per MD and follow up with her community providers. She will transport home via private vehicle with her .
--- NOTE | 2019-11-03 13:33 | SKI_PTH ---
PATIENT: LAUREL MONGE LOC: U#:[id number] AGE/SX: 69/F ROOM: RE11/02/[address]: Yeison Trammell : 1950 BED: A DIS: 11/04/2019 SPEC #: [id number] RECD: 11/03/19 17:56 STATUS: DWAYNE REQ #: [id number] MORELIA: 11/03/19 13:[address]: Herman Zafar DEPT: Surgical Specimen RECD BY: Daphnie Gomez ENTERED: 11/03/19 17:57 SP TYPE: WILLIAM RUIZ DR: ELI Desir MD Tissues: 1 - SKIN BIOPSY(SHAVE/PUNCH) Procedures: IMMUNOPEROXIDASE STAIN SKIN LEVEL 4 Her-2 Dual MANDEEP ESTROGEN/PROGESTERONE RECEPTOR IPEX STAIN Comments: [id number] (DO ER/GA & HER 2NEU RECETORS IF INDICATED)
[2019-11-03] MEDS: LORazepam 1 MG TAB PO ×2 (14:08→20:12)
--- NOTE | 2019-11-03 15:18 | W.NUTCONSULT ---
Date of service: 11/03/19 Time of Service: 15:18 Nutritional Consult ASSESSMENT: 69 year old female admitted with acute nausea with 3-4 weeks of progressive anorexia. BMI indicates morbid obesity. Reports significant weight loss in last 4 weeks. Awaiting lung biopsy to r/o lung CA. Had breast CA in 2008. Met with Sindi and she reports that she has severe gag reflex and does not want to see any more popsicles or spoons on her tray- dietary informed. Continues on clear liquid diet x days 2. At high nutritional risk in view of poor intake, significant weight loss in last couple of weeks. Expect diet to be advanced by tomorrow. Estimated nutrient needs: 1800 kcal, 70 g protein, 3200 ml fluid. NUTRITIONAL DIAGNOSIS: anorexia, acute nausea INTERVENTION: clear liquid diet MONITORING AND EVALUATION: diet advancement, po intake, weight and labs Time Spent in Nutritional Counseling and Treatment: 5 min spent face to face
--- NOTE | 2019-11-03 15:35 | CHAPLAIN ---
Sindi was visiting with her and a friend when I stopped in. She is connected to an Anglican Roman Catholic in [place], but was not interested in me contacting the advent as she has not attended for some time. Sindi was pleasant but did not appear to be interested in further conversation.
[2019-11-03] MEDS: Lactated Ringers 1,000 ML 75 ML IV (16:33)
[2019-11-03 16:40] VITALS: BP 141/82; PULSE 72; RESP 18; TEMP 36.8; O2SAT 92
--- NOTE | 2019-11-03 18:37 | W.PM.PROGNOT ---
Date of Service Date of service: 11/03/19 Time of Service: 18:37 Assessment and Plan Assessment and plan (1) Nausea: Status: Acute Assessment and plan: She presented with intractable nausea and vomiting. She is responded well to IV fluids and antiemetics. We will start her on a regular diet. (2) Lung mass: Status: Acute Assessment and plan: New diagnosis of a lung mass in the left lower lobe, superior clavicular node on the right was biopsied today. She also has bony metastases in her spine. Pathology is pending and will be back later in this week or early next week. Subjective Subjective Interval history since last seen: Patient had a busy day today. She went down to the OR for a lymph node biopsy in the right supraclavicular region with Dr. Quiñones. She saw Dr. Yamileth Jackson for palliative care consultation. She had one episode of vomiting today. She now is feeling somewhat hungry and would like to consider starting a regular diet. She does not want to be discharged until she can tolerate regular food. Exam Narrative Exam Narrative: On exam she is sitting up in the chair looking relatively comfortable. The surgical incision site on her right supra clavicular region is clean and dry. She had no respiratory distress. She had a mild intermittent cough. Her sat was 95% on room air. Objective Objective Clinical Data: Abnormal lab results 11/02/19 11/02/19 Range/Units 19:35 19:35 Absolute Neutrophils 7.04 H (1.2-6.7) k/cumm Absolute Lymphocytes 0.86 L (1.2-3.4) k/cumm Sodium 133 L (136-145) mmol/L Chloride 96 L (98-107) mmol/L Creatinine 1.08 H (0.55-1.02) mg/dL Glucose 111 H (74-106) mg/dL AST 14 L (15-37) U/L Albumin 3.3 L (3.4-5.0) g/dL Vital Signs Temperature 36.8 C 11/03/19 16:40 Temperature Source Temporal Artery Scan 11/03/19 16:40 Pulse 72 11/03/19 16:40 Pulse Rhythm Regular 11/03/19 16:40 Respiratory Rate 18 11/03/19 16:40 Respiratory Effort 11/03/19 16:40 Respiratory Depth Normal 11/03/19 16:40 Respiratory Pattern Normal 11/03/19 16:40 Blood Pressure 141/82 H 11/03/19 16:40 Pulse Oximetry 92 L 11/03/19 16:40 Oxygen Delivery Method Room Air 11/03/19 16:40 Oxygen Flow Rate 0 11/03/19 16:40 Pain Level 0 11/03/19 07:00 Intake & Output 11/02/19 11/03/19 11/03/19 23:59 11:59 23:59 Intake Total 1000 / 1000 1010 / 1490 480 / 1490 Balance 1000 / 1000 1010 / 1490 480 / 1490 Weight 117.934 kg Intake: IV 1000 / 1000 1010 / 1010 Oral 480 / 480 Other: Urine Color Yellow Urine Appearance Clear Clear Urine Odor Normal Comment voids in toilet. Hat removed per patient Emesis Description Retching Voiding Methods Toilet Toilet Laboratory Results WBC 8.68 k/cumm (4.4-10.8) 11/02/19 19:35 RBC 4.35 m/cumm (4.00-5.20) 11/02/19 19:35 Hgb 12.9 g/dL (12.0-15.5) 11/02/19 19:35 Hct 38.3 % (36.0-46.0) 11/02/19 19:35 MCV 88.0 fL (80-95) 11/02/19 19:35 MCH 29.7 pg (27.0-33.0) 11/02/19 19:35 MCHC 33.7 g/dL (32.0-36.0) 11/02/19 19:35 RDW 12.8 % (11.7-14.6) 11/02/19 19:35 Plt Count 291 x1000/uL (130-400) 11/02/19 19:35 MPV 9.5 fL (8.0-11.0) 11/02/19 19:35 Immature Gran % 0.2 % 11/02/19 19:35 Neutrophils % 81.2 11/02/19 19:35 Lymphocytes % 9.9 11/02/19 19:35 Monocytes % 7.7 11/02/19 19:35 Eosinophils % 0.8 11/02/19 19:35 Basophils % 0.2 11/02/19 19:35 Absolute Neutrophils 7.04 k/cumm (1.2-6.7) H 11/02/19 19:35 Absolute Lymphocytes 0.86 k/cumm (1.2-3.4) L 11/02/19 19:35 Absolute Monocytes 0.67 k/cumm (0.11-0.7) 11/02/19 19:35 Absolute Eosinophils 0.07 k/cumm (0.0-0.7) 11/02/19 19:35 Absolute Basophils 0.02 k/cumm (0.0-0.2) 11/02/19 19:35 Sodium 137 mmol/L (136-145) 11/03/19 06:20 Potassium 4.1 mmol/L (3.5-5.1) 11/03/19 06:20 Chloride 100 mmol/L (98-107) 11/03/19 06:20 Carbon Dioxide 30.0 mmol/L (21.0-32.0) 11/03/19 06:20 Anion Gap 7.0 mmol/L (3-11) 11/03/19 06:20 BUN 10 mg/dL (7-18) 11/03/19 06:20 Creatinine 0.93 mg/dL (0.55-1.02) 11/03/19 06:20 Estimated GFR/1.73 m2 59.60 (mL/min/1.73m2) 11/03/19 06:20 Glucose 86 mg/dL (74-106) 11/03/19 06:20 Calcium 9.3 mg/dL (8.5-10.1) 11/03/19 06:20 Total Bilirubin 0.3 mg/dL (0.2-1.0) 11/02/19 19:35 AST 14 U/L (15-37) L 11/02/19 19:35 ALT 15 U/L (14-59) 11/02/19 19:35 Alkaline Phosphatase 95 U/L (46-116) 11/02/19 19:35 Total Protein 7.5 g/dL (6.4-8.2) 11/02/19 19:35 Albumin 3.3 g/dL (3.4-5.0) L 11/02/19 19:35
--- NOTE | 2019-11-03 21:12 | W.PALLCONSUL ---
Date of service: 11/03/19 History of Present Illness History of Present Illness Chief Complaint: new diagnosis of LLL mass with mets to bone and LN Narrative: Sinid is a 69 yo pt who passed her 10 year anniversary of surviving breast cancer in 2019. She reports that in May 2019, she started feeling fatigued and having chest discomfort. She had an earache and cough. Her PCP, Marialuisa Murdock, worked her up for cardiac causes; none were found. Ms Murdock referred Sindi to [facility] for her ear pain. She had a CT done of her neck that showed bone spurs. She reports she was told to take advil. Her ear pain continued. She noticed she'd been losing weight unintentionally; she's down 17 lbs in 10 months, according to her records, most of the loss in the last 3 months. She's had decreased appetite. Nothing tastes good to her. For the last 2-3 weeks, she's been surviving on sherbert, applesauce and scrambled eggs. She has been making herself drink 40-50 oz of water per day. She was in the shower about 10 days ago when she found a lump over her right clavicle. This area had hurt when she had a recent normal mammogram; now she thinks the mammogram machine was pulling on that lump. She returned to see her PCP with these new symptoms. Ms Murdock promptly ordered a CT scan, first available, scheduled for 11/05/2019. In the meantime, however, Sindi developed a vomiting syndrome. Ms Murdock prescribed ondansetron, which helped but didn't stop the vomiting. Given her persistent vomiting, she went to the ER, where she was administered prochlorperazine. She had an adverse drug effect to this this. She became restless, agitated, anxious. She had a CT scan on this ER visit; it showed a likely lung mass. She was allowed to go home with f/u scheduled with PCP. She tried to return home, but was there only for hours, when she had to return to the ER due to persistent anxiety, agitation, nausea and vomiting and tachypnea. This time she was admitted. I saw her in the afternoon. Dr Quiñones, general surgeon, had done a biopsy of her right clavicle earlier in the day. Biopsy results are pending; Sindi understands that they likely will not be back for a week or so. 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 She's been through cancer before. She doesn't want to dwell on this new medical information. She likes to take it one step at a time. She is holding out hope that it's not lung cancer at all. She knows the biopsy won't be back for a week or so. She will deal with the definitive information when it arises. (2) Goals of care, counseling/discussion: Status: Acute Assessment and plan: She wants to celebrate her 50th wed anniversary in June with style. She wants to enjoy some long car rides with her , who is very supportive and caring. She will get back to walking regularly. When she went through her breast cancer treatment, she found that walking really helped her feel better. We did not address her CODE STATUS. She was not in the place where that would have worked for her. This should be addressed if her metastatic cancer is confirmed. I defer to her PCP, Marialuisa Murdock. (3) Palliative care patient: Status: Acute Assessment and plan: Will continue to see Sindi if it is beneficial to her. Will try to meet up with her at [facility] if/when she begins treatment. (4) Lung mass: Status: Acute Assessment and plan: HIghly suspicious for metastatic cancer, with mets to bone and lymph node. Awaiting biopsy results of mass anterior to right clavicle. If that is inconclusive, would still recommend a biopsy of the mass or cytology of her effusion. Review of Systems Constitutional Constitutional: Reports fatigue, Reports poor appetite, Reports weakness and Reports weight loss Eyes Eyes: Reports requires corrective lenses ENT Ears, Nose, Mouth, and Throat: Reports dizziness and Reports dry mouth Cardiovascular Cardiovascular: Reports rapid heart rate, Reports pedal edema (chronic, wears CULLEN stockings to knee bilaterally), Reports lightheadedness and Reports dyspnea on exertion Respiratory Respiratory: Reports cough and Reports dyspnea on exertion Gastrointestinal Gastrointestinal: Reports constipation, Reports early satiety, Reports nausea and Reports vomiting Genitourinary Genitourinary: Reports urinary incontinence (with sneezing, coughing, etc) Musculoskeletal Musculoskeletal: Reports deformity (right clavicle; biopsy done 11/03/2019), Reports muscle weakness (tired and weak everywhere) and Reports stiffness Integumentary/Breasts Skin/Breast: Reports new lesions (right clavicle) Neurologic Neurologic: Reports dizziness and Reports weakness Psychiatric Psychiatric: Reports anxiety, Reports change in appetite, Reports difficulty concentrating and Reports other (uses denial for her coping mechanism; prefers not to think about her diagno) Endocrine Endocrine: Reports fatigue Hematologic/Lymphatic Hematologic/Lymphatic: Reports easy bruising [facility] Medical History (Updated 11/04/19 @ 09:52 by Yamileth Bueno MD) Adopted (Chronic) Chest discomfort (Acute) Chronic pain of left knee (Chronic 04/11/16) She sees Dr. Gee for this. Colon polyp (Chronic 05/09/14) 04/23/14 tubular adenoma x 2 08/2017 tubular adenoma x 8 Denial as mental defense mechanism (Chronic) helps her cope; she is self-aware of her denial Ear pain, left (Chronic) ? 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 Metastasis from malignant neoplasm of lung (Acute) Metastasis to lymph nodes (Acute) Metastatic cancer to spine (Acute) Nausea alone (Acute) Neck discomfort (Acute) Neck pain (Chronic) Neoplasm of breast Otitis externa (Acute) Palliative care patient (Acute) Phlebitis (Resolved 02/19/13) Seasonal allergies (Acute) Seborrheic keratosis (Acute) Tubular adenoma Tubular adenoma (Chronic 08/12/17) Varicose veins of lower extremity Varicose veins of lower extremity (Chronic) h/o phlebitis Weight loss, non-intentional (Acute) Surgical History (Updated 11/04/19 @ 09:30 by Yamileth Bueno MD) Abdominal hysterectomy BSO 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 Granddaughter No problems noted. Social History (Updated 11/04/19 @ 09:35 by Yamileth Bueno MD) Smoking/Tobacco Use Status: Former Tobacco Use Quit Date: 10/07/84 Tobacco: How many years used: 20 Second Hand Exposure: Yes Alcohol Intake: former Drug use: Never Substance use type: does not use Counseling given: No Counseling provided: none Adopted: Yes Caregiver/Support person: Yes Household members: spouse Housing: house Number of Children: 1 number of grandchildren: 2 Communication Needs: Corrective Lenses Education Level: high school Do you need help understanding health information?: Often Pets and animals: Yes (Selam Hair cats x 2) Pets and animals: cat(s) Current gender identity: female What is your relationship status?: How often do you talk on the phone with friends or family?: once per week How often do you get together with friends or relatives?: once per week How often do you attend christianity or zoroastrian services?: decline to answer Do you belong to any clubs or organized social groups?: no Panel score (0-1 are the most socially isolated patients): 1 What type of physical activity do you participate in: walking, occasional exercise and sedentary lifestyle Duration: < 15 minutes/day Frequency: 1-2 times per week Keli/Restorationist: Congregational Special keli needs: No Seatbelt use: always Drive intox or ride w/intox corrugated fastener 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 They are very happy. They love to go for long car rides together. Some estrangement from daughter, unclear. Exam Const General: cooperative, healthy appearing, comfortable and no acute distress Nutritional Appearance: obese Orientation: alert, awake and oriented x3 HENOH Head: normocephalic and atraumatic Ears: hearing grossly normal bilaterally and external ears normal General nose exam: external nose normal Face and sinus: normal facial exam and face symmetric Mouth: oral mucosae normal and moist mucous membranes Eyes Conjunctivae: conjunctivae normal Sclera: sclerae normal Pupils: PERRL Neck Neck: no lymphadenopathy and no JVD Thyroid: thyroid normal Chest Chest: tenderness rib (left lower) and clavicle on the right Resp Effort & Inspection: normal respiratory effort and able to speak in complete sentences Auscultation: clear to auscultation bilaterally and diminished lung sounds Cardio Jugular venous pressure: no JVD Rate: regular rate Rhythm: regular rhythm Heart Sounds: S1 normal and S2 normal GI Inspection: obesity Palpation: soft Auscultation: normal bowel sounds Skin General skin exam: dry skin and other (has bandage covering right medial clavicle) Wounds: wounds noted Hair: normal Nails: normal Neuro General: alert, awake and oriented x3 Cognition: normal cognition Speech: speech normal Gait: normal gait Extrem General: edema and pedal edema Psych Appearance: grossly normal and well kempt Mental Status: mental status grossly normal Speech and Movement: speech clear and slowed movement Mood: anxious mood (trying to control her anxiety by not thinking about her recent dx) Affect: sad and anxious affect Attitude: cooperative Thought Process: other (consciously using denial to cope) Insight: fair Judgment: fair Results Last Vital Signs Temp 98.2 F 11/03/19 16:40 Pulse 72 11/03/19 16:40 Resp 18 11/03/19 16:40 BP 141/82 H 11/03/19 16:40 Pulse Ox 92 L 11/03/19 16:40 Labs Result diagrams: 11/02/19 19:35 11/03/19 06:20 Labs: Laboratory Results - last 24 hr 11/03/19 06:20 Sodium 137 Potassium 4.1 Chloride 100 Carbon Dioxide 30.0 Anion Gap 7.0 BUN 10 Creatinine 0.93 Estimated GFR/1.73 m2 59.60 Glucose 86 Calcium 9.3
[2019-11-03] MEDS: Enoxaparin 40 MG/0.4 ML SYR SC (22:08)
[2019-11-04 05:05] VITALS: BP 158/77; PULSE 88; RESP 20; TEMP 37.2; O2SAT 97
[2019-11-04] MEDS: Lactated Ringers 1,000 ML 75 ML IV (05:45)
[2019-11-04 07:24] VITALS: BP 146/82; PULSE 70; RESP 18; TEMP 36.6; O2SAT 96
[2019-11-04] MEDS: Fluticasone NASAL SPRAY 16 GM BTL NS (09:13)
[2019-11-04] MEDS: Esomeprazole 40 MG CAPCR PO (09:13)
[2019-11-04] MEDS: Aspirin 81 MG CHEW PO (09:13)
--- NOTE | 2019-11-04 09:57 | ROE_ITS ---
REPORT OF OPERATIVE PROCEDURE DATE OF PROCEDURE November 03, 2019 PREOPERATIVE DIAGNOSES 1. Right upper chest wall mass. 2. History of breast cancer. POSTOPERATIVE DIAGNOSIS 1. Right upper chest wall mass. 2. History of breast cancer. PROCEDURE Excision right upper chest soft tissue mass. SURGEON Talita Quiñones M.D. SOLUTIONS MANAGER Radha Rizzo PA-C. ANESTHESIA Local. INDICATIONS This is a 69-year-old woman who presented with intractable nausea. She has a history of breast cancer treated over 10 years ago. She had a CT scan of the chest that showed evidence of a left lower lung nodule suspicious for metastatic disease, as well as some soft tissue changes overlying the right cla vicle. The patient has been aware of a fullness overlying the right clavicle since August, but attr ibuted this to arthritis. PROCEDURE DESCRIPTION The patient was placed supine on the procedure table. Her skin overlying her right clavicle was prepp ed and draped sterilely. A nodule was palpable towards the medial aspect overlying the clavicle. The skin here was infiltrated with local anesthetic and a 1.5 cm transverse incision made. Subcutaneous t issue was divided with cautery. A few muscular layers were spread apart to expose a small nodule les s than the size of a pea. This was excised sharply. There was a smaller additional nodule nearby that was excised sharply and sent in the same specimen container. We will request ER/WA and HER2/guillaume rece ptors. The site exhibited good hemostasis. The skin was closed was closed a running #4-0 Monocryl bowling bcuticular stitch. She tolerated the procedure well and was stable to go back up to MED/SURG.
[2019-11-04] MEDS: LORazepam 1 MG TAB PO (10:08)
[2019-11-04] MEDS: hydroCHLOROthiazide 25 MG TAB PO (11:07)
[2019-11-04] MEDS: Losartan 50 MG TAB 100 MG PO (11:08)
--- NOTE | 2019-11-04 15:03 | PDOC.CMDIS ---
LACE Index Scoring Tool - Questions: Length of Stay (in days): 2 Acuity (Admit via E.D.?): Yes Comorbidities: Any Tumor E.D. Visits: 2 - Answers: Total Score: 9 Risk of Readmission: Low Risk Care Management Discharge Reason for Hospitalization: Nausea, Lung Mass Discharge Plan: Sindi will return home when ready per MD and follow up with her community providers including Palliative Care. She will transport home via private vehicle with her . Patient/Family Education Needs: Review discharge instructions, discuss Ask Me Three.
--- NOTE | 2019-11-04 17:53 | DSE_ITS ---
Date of service: 11/04/19 Time of Service: 17:53 DS: Diagnosis Discharge Diagnosis (1) Lung mass: Status: Acute Asessment and Plan: Patient diagnosed with a large left lower lobe lung mass during an ER visit on 11/01/2019. She had originally been having problems with nausea and vomiting. She returned to the emergency room for IV fluids and antiemetic therapy. She went on to have a biopsy of the supraclavicular lymph nodes with Dr. Quiñones. Pathology pending. (2) Nausea: Status: Acute Asessment and Plan: Intractable nausea and vomiting of unknown etiology. Likely related to the large tumor in her left lung. There are no apparent brain lesions by head CT. She has responded to IV hydration and antiemetic therapy. She is tolerated breakfast and lunch today. Discharged with home antiemetic regimen. Follow-up if further nausea and vomiting or signs of dehydration. (3) Palliative care patient: Status: Acute Asessment and Plan: Seen by palliative care during this admission. Continue to follow with palliative care as an outpatient. Discharge Plan Disposition Patient Disposition: HOME Condition: Improving Discharge Details Chief Complaint: Nausea/Vomit/Diar Reason For Visit: NAUSEA, LUNG MASS Admit Date/Time: 11/02/19 20:40 Admit Provider: Herman Zafar Attending Provider: Herman Zafar Primary Care Provider: Marialuisa Murdock ED Provider: Stephany Morrison Hospital Course Hospital Course: 69-year-old female presents with 3 to 4 weeks of progressive nausea and anorexia. She had no abdominal pain or diarrhea. The work-up in the emergency room included a CT of the chest that showed a large left lower lobe mass with hilar nodes, pericardial effusion, and probable L5 metastatic lesion. The patient was sent home from the emergency room with oral antiemetics but returned later that day with persistent nausea. She was admitted for IV fluids and ongoing antiemetic therapy. On 11/03/2019 she had a right supraclavicular lymph node biopsy with Dr. Quiñones, pathology pending. Patient was able to come off IV fluids and take p.o. adeq uately on her own. She like to give it a try at home with antiemetic therapy and lorazepam as needed. Further follow-up with Marialuisa Murdock NP. Once pathology is available will likely need a referral to the [facility]. Home Meds and New Rx's Prescriptions: New ondansetron 4 mg tablet,disintegrating 4 mg PO Q6H PRN (Reason: nausea and vomiting) Qty: 30 RF: 0 Continued fluticasone propionate 50 mcg/actuation spray,suspension 2 spray NS DAILY Qty: 9.9 RF: 6 metformin 500 mg tablet extended release 24hr 500 mg PO DAILY Qty: 90 RF: 4 calcium carbonate-vitamin D3 1 EACH tablet 1 ea PO BID RF: 0 acetaminophen 500 MG tablet 2 tab PO TID PRNRF: 0 esomeprazole magnesium [Nexium] 40 mg capsule,delayed release(DR/EC) 40 mg PO DAILY Qty: 90 RF: 3 losartan-hydrochlorothiazide 100-25 mg tablet 1 tab PO DAILY Qty: 90 RF: 3 polyethylene glycol 3350 [Miralax] 17 gram powder in packet 17 gm PO DAILY PRN (Reason: constipation) Qty: 100 RF: 4 aspirin 81 mg Tablet,Chewable 81 mg PO BID RF: 0 lovastatin 20 mg tablet 40 mg PO DAILY RF: 0 Changed lorazepam 1 mg tablet 1 mg PO QID PRN (Reason: anxiety) Qty: 30 RF: 0 Discontinued prochlorperazine maleate [Compazine] 10 mg tablet 10 mg PO Q6H PRN (Reason: nausea and vomiting) Qty: 10 RF: 0 Discharge Instructions Instructions: Acute Nausea and Vomiting (DC) Stand Alone Forms: Nursing Discharge Form Referrals: Marialuisa Murdock NP [Primary Care Provider] - 11/10/19 11:20 am Activity:: Activity as Tolerated Equipment/Supplies:: No Equipment Needed Diet:: Carb Counting Discharge Orders Discharge Orders: Discharge Order (Routine); Ordered 11/04/19 Ordered By: Yeison Trammell Discharge Data Discharge Date/Time-TO BE ENTERED AT DEPARTURE: 11/04/19 15:55 DS: Summary Status at Discharge Functional status at discharge: independent ambulation Overall status at discharge: patient is back to baseline Mental Status: mental status grossly normal Speech and Movement: speech and movement normal Mood: congruent mood Affect: normal affect Time Spent with Patient providing and/or coordinating discharge services: Greater than 30 minutes Exam Narrative Exam Narrative: Exam on day of discharge; we sat in the chair is in the hallway and discussed her plan of care going forward. She was denying any significant nausea. She had no respiratory difficulties. The biopsy site in the right supraclavicular area was not bothering her, she had no pain or discomfort. She was ambulating well independently. She had no respiratory difficulties. She was satting well on room air, 96%. Psych Mental Status: mental status grossly normal Speech and Movement: speech and movement normal Mood: congruent mood Affect: normal affect DS: Data Vitals/I&O Vitals and I&O: Vital Signs Temperature 36.6 C 11/04/19 07:24 Temperature Source Tympanic 11/04/19 07:24 Pulse 70 11/04/19 07:24 Pulse Rhythm Regular 11/04/19 09:50 Respiratory Rate 18 11/04/19 07:24 Respiratory Effort 11/04/19 09:50 Respiratory Depth Normal 11/04/19 09:50 Respiratory Pattern Normal 11/04/19 09:50 Blood Pressure 146/82 H 11/04/19 07:24 Pulse Oximetry 96 11/04/19 07:24 Oxygen Delivery Method Room Air 11/04/19 07:24 Oxygen Flow Rate 0 11/04/19 07:24 Pain Level 0 11/04/19 07:24 Intake & Output 11/03/19 11/04/19 11/04/19 23:59 11:59 23:59 Intake Total 1130 / 2140 1789 / 2029 Balance 1130 / 2140 1789 Intake: IV 1420 / 1420 Oral 1130 / 1130 370 / 610 240 / 610 Other: Urine Color Yellow Urine Appearance Clear Clear Urine Odor Normal Comment per patient Voidiing ad adam Voiding Methods Toilet Toilet [facility] Medical History Adopted (Chronic) Chest discomfort (Acute) Chronic pain of left knee (Chronic 04/11/16) She sees Dr. Gee for this. Colon polyp (Chronic 05/09/14) 04/23/14 tubular adenoma x 2 08/2017 tubular adenoma x 8 Denial as mental defense mechanism (Chronic) helps her cope; she is self-aware of her denial Ear pain, left (Chronic) ? 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 (Acute) Nausea alone (Acute) Neck discomfort (Acute) Neck pain (Chronic) Neoplasm of breast Otitis externa (Acute) Palliative care patient (Acute) Phlebitis (Resolved 02/19/13) Seasonal allergies (Acute) Seborrheic keratosis (Acute) Tubular adenoma Tubular adenoma (Chronic 08/12/17) Varicose veins of lower extremity Varicose veins of lower extremity (Chronic) h/o phlebitis Weight loss, non-intentional (Acute) Surgical History Abdominal hysterectomy BSO 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 Granddaughter No problems noted. Social History Smoking/Tobacco Use Status: Former Tobacco Use Quit Date: 10/07/84 Tobacco: How many years used: 20 Second Hand Exposure: Yes Alcohol Intake: former Drug use: Never Substance use type: does not use Counseling given: No Counseling provided: none Adopted: Yes Caregiver/Support person: Yes Household members: spouse Housing: house Number of Children: 1 number of grandchildren: 2 Communication Needs: Corrective Lenses Education Level: high school Do you need help understanding health information?: Often Pets and animals: Yes (Sealm Coon cats x 2) Pets and animals: cat(s) Current gender identity: female What is your relationship status?: How often do you talk on the phone with friends or family?: once per week How often do you get together with friends or relatives?: once per week How often do you attend christianity or mosque services?: decline to answer Do you belong to any clubs or organized social groups?: no Panel score (0-1 are the most socially isolated patients): 1 What type of physical activity do you participate in: walking, occasional exercise and sedentary lifestyle Duration: < 15 minutes/day Frequency: 1-2 times per week Keli/Episcopal: Confucianism Special keli needs: No Seatbelt use: always Drive intox or ride w/intox parts delivery 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 They are very happy. They love to go for long car rides together. Some estrangement from daughter, unclear.
== END 2019-11-04 15:55 | disposition home or self-care (01) | DRG 988 ==
LOC: ER 20:53 → MS 21:19
PROVIDERS: Surgery; Admitting Provider General Practice; Emergency Provider Physician Assistant; Visit Provider Family Medicine
PROC: 0WB80ZZ Excision of Chest Wall, Open Approach (ICD-10-PCS; CPT 11602; principal; 2019-11-03 13:30)
DX: R11.2 Nausea with vomiting, unspecified (principal); C79.51 Secondary malignant neoplasm of bone; C77.9 Secondary and unspecified malignant neoplasm of lymph node, unspecified; R91.8 Other nonspecific abnormal finding of lung field; Z85.3 Personal history of malignant neoplasm of breast; Z51.5 Encounter for palliative care; Z87.891 Personal history of nicotine dependence; I10 Essential (primary) hypertension; K21.9 Gastro-esophageal reflux disease without esophagitis; E78.5 Hyperlipidemia, unspecified; R05 Cough; R60.0 Localized edema; R45.89 Other symptoms and signs involving emotional state
CPT/HCPCS: 11602; 36415; 70491; 74177; 80048; 80053; 83690; 96361; 96365; 96367; 96374; 96375; 99222; 99232; 99239; 99255; 99285; J1650; 70450; 71260; 81003; 81015; 83735; 84443; 84484; 85025; 88305; 88360; 88361; 88368; J0780; J2405; J3475; J3490; Q9967

== ENCOUNTER 2019-12-02 01:42 | Outpatient (CLI) | payer MEDICARE, SELFPAY ==
--- NOTE | 2019-12-02 | DI.NM_ITS ---
EXAM: NM BONE SCAN WHOLE BODY GRP CLINICAL HISTORY: CARCINOMA OF BREAST METASTATIC TO BONE C50.919, C79.51. COMPARISON: CT NECK CHEST ABD PEL W from 11/02/2019 EXAMINATION: 26.0 millicuries of technetium 99m MDP were administered IV. Whole body images and lat eral views of the head and neck, chest and pelvis were performed. FINDINGS: There is a focus of abnormal labeling seen within the right side of the skull. There is abnormal in creased activity in the right 2nd and 4th ribs anteriorly and the left 5th rib laterally. There are multiple foci of increased activity in the spine, the upper and mid thoracic spine, lower thoracic sp ine as well as lower lumbar spine. There is a focus of labeling in the right ischium. Increased act ivity in the medial compartments of both knees is likely secondary to degenerative changes. There is increased activity in the right shoulder, which also appears to be secondary to degenerative changes . IMPRESSION: Findings consistent with bony metastasis seen in the right skull, bilateral ribs, thoracic and lumbar spine as well as right ischium.
== END 2019-12-02 02:02 ==
PROVIDERS: Visit Provider Internal Medicine Hematology & Oncology
DX: C50.919 Malignant neoplasm of unspecified site of unspecified female breast (principal); C79.51 Secondary malignant neoplasm of bone
CPT/HCPCS: 78306

== ENCOUNTER 2020-01-04 01:18 | Outpatient (CLI) | payer MEDICARE, SELFPAY ==
--- NOTE | 2020-01-04 13:42 | DI.US_ITS ---
APPROVED REPORT EXAM: Comprehensive 2D, Doppler, and color-flow Echocardiogram Patient Location: Out-Patient Ems Instructor: Micheline Ray RDCS (AE) Conclusion Normal left ventricular wall thickness and chamber size. Estimated ejection fraction is 55%. There are no segmental wall motion abnormalities There is no chamber enlargement There is no structural valvular disease There is trace to mild mitral regurgitation, trace physiologic pulmonic regurgitation Wall motion Left Ventricle The left ventricle is normal size. The left ventricular systolic function is normal. The left ventric ular ejection fraction is within the normal range. There is normal left ventricular wall thickness. T here is no ventricular septal defect visualized. The Left Ventricular Ejection Fraction is 55-60 LV EF is within normal limits. Right Ventricle The right ventricle is normal size. The right ventricular systolic function is normal. Atria The left atrium size is normal. The right atrium size is normal. The interatrial septum is intact wit h no evidence for an atrial septal defect. Aortic Valve The aortic valve is normal in structure. Aortic valve is trileaflet. There is no aortic valvular sten osis. No aortic regurgitation is present. Mitral Valve There is mitral annular calcification. The mitral valve is normal in structure. No evidence of mitral valve stenosis. Trace to mild mitral regurgitation. Tricuspid Valve The tricuspid valve is normal in structure. There is no tricuspid valve stenosis. Trace tricuspid reg urgitation. Unable to assess PA pressure. Pulmonic Valve The pulmonary valve is normal in structure. There is no pulmonic valvular stenosis. Trace pulmonic re gurgitation. Great Vessels The aortic root is normal in size. The ascending aorta is normal in size. Ascending aorta is not well visualized. IVC is normal in size and collapses >50% with inspiration. Pericardium There is no pericardial effusion. 2D Dimensions IVSD d PLAX 1.02 cm F: 0.6-1.0 LV Vol A2C d MOD 73.6 mL LVPW d PLAX 1.02 cm F: 0.6 - 1.0 LV Vol A4C d MOD 85.3 mL LVID d PLAX 4.26 cm F: 3.8 - 5.2 LA vol/ BSA A2C s A-L 20.0 mL/m2 LVDs 3.10 cm F: 2.2 - 3.5 LA vol/ BSA A4C s A-L 20.6 mL/m2 Ao Root d 3.32 cm F: 2.7 - 3.3 LA Vol/ BSA Biplane s A-L 20.8 mL/m2 RA Area A4C 15.49 cm2 LA Area A4C s MOD 16.75 cm2 RA Vol/ BSA A4C s A-L 20.5 mL/m2 LA Area A2C s MOD 16.14 cm2 Ao Asc Diam d 3.13 cm F: 2.3 - 3.1 LV EF A4C MOD 39.9 % LV EF Teichholz 53.3 % LV EF A2C MOD 40.2 % LVEF (Oliveira's) 40.21 % F: 54 - 74 LV EF Biplane MOD 40.2 % LV Volume 58.28 mL F: 46 - 106 LV Volume Index 27.36 mL/m2 F: 29 - 61 LV Vol Biplane MOD 79.4 mL FS 27.15 % LV Diastology MV E' medial 0.085 (>0.07 m/s) E/A Ratio 0.5 LV E/e MED 5.10 (<14) MV E Vmax 0.44 (0.4-1.3 m/s) MV E' lateral 0.035 (>0.1 m/s) MV A Vmax 0.90 (0.4-1.3 m/s) LV E/e LAT 12.40 (<14) MV E/A Ratio 0.48 MV E/E' medial 5.13 MV E/E' lateral 12.41 Aortic Valve LVOT Area 2.70 cm2 AoV Area Vmax 2.44 cm2 LVOT Vmax 0.88 m/s AoV Area/ BSA (Vmax) 1.14 cm2/m2 LVOT Mean Narinder. 0.56 m/s TREY Mean Narinder. 2.14 cm2 LVOT Peak Grad 3.1 mmHg TREY Mean Narinder. Index 1.00 cm2/m2 LVOT Mean Grad 1.5 mmHg LVOT VTI 0.174 m LVOT Diam s 1.85 cm (M/F) 1.5-2.5 AoV Vmax 0.98 (0.5-1.3 m/s) Velocity Ratio 0.89 AoV Mean Narinder. 0.70 m/s AoV Peak Grad 3.8 mmHg LVOT SV 47.11 mL AoV Mean Grad 2.2 (<5 mmHg) AoV VTI 0.184 (0.18-0.25 m) AoV Area VTI 2.55 (2.5-4.5 cm2) AoV Area/ BSA (VTI) 1.19 cm/m2 Mitral Valve MV DT 589 (160-240 msec) MR Vmax 4.62 m/s MV PHT 171 msec MR VTI 1.620 m MV Area PHT 1.29 cm2 MR Peak Grad 85.4 mmHg MR Mean Grad 56.0 mmHg Pulmonary Valve PV Vmax 0.88 (0.5-1.5 m/s) RVOT Peak Gr. 1.68 mmHg PV Peak Grad 3.1 mmHg RVOT Mean Gr. 0.95 mmHg PV Mean Grad 1.7 mmHg RVOT VTI 0.130 m PV VTI 0.136 m RVOT Vmax 0.65 m/s
== END 2020-01-04 01:38 ==
PROVIDERS: PCP Family Medicine; Visit Provider Internal Medicine
DX: I10 Essential (primary) hypertension (principal); I34.0 Nonrheumatic mitral (valve) insufficiency
CPT/HCPCS: 93306

== ENCOUNTER 2020-01-08 01:00 | Outpatient (CLI) | payer MEDICARE, SELFPAY ==
[2020-01-08 13:48] LABS: Abs Immature Grans 0.02 k/cumm (0.0-0.09); Absolute Basophil Count 0.03 k/cumm (0.0-0.2); Absolute Eosinophil Count 0.16 k/cumm (0.0-0.7); Absolute Lymphocyte Count 1.05 k/cumm (1.2-3.4); Absolute Monocyte Count 0.55 k/cumm (0.11-0.7); Absolute Neutrophil Count 6.99 k/cumm (1.2-6.7); Basophils % 0.3; Eosinophils % 1.8; HCT 40.1 % (36.0-46.0); Immature Grans % 0.2 %; Lymphocytes % 11.9; Mean Corp. HGB Concentration 32.4 g/dL (32.0-36.0); Mean Corpuscular Hemoglobin 29.1 pg (27.0-33.0); Mean Corpuscular Volume 89.9 fL (80-95); Mean Platelet Volume 10.2 fL (8.0-11.0); Monocytes % 6.3; Neutrophils % 79.5; Platelet Count 292 x1000/uL (130-400); RBC 4.46 m/cumm (4.00-5.20); RBC Distribution Width 13.5 % (11.7-14.6)
[2020-01-08 13:58] LABS: ALT 27 U/L (14-59); AST 17 U/L (15-37); Albumin 3.3 g/dL (3.4-5.0); Alkaline Phosphatase 102 U/L (46-116); Anion Gap 4.2 mmol/L (3-11); BUN 17 mg/dL (7-18); Bilirubin, Total 0.3 mg/dL (0.2-1.0); CO2 31.8 mmol/L (21.0-32.0); CREATININE 1.31 mg/dL (0.55-1.02); Chloride 99 mmol/L (98-107); Estimated GFR 40.14 (mL/min/1.73m2); Glucose 123 mg/dL (74-106); Potassium 4.2 mmol/L (3.5-5.1); Sodium 135 mmol/L (136-145); Total Protein 7.7 g/dL (6.4-8.2)
== END 2020-01-08 01:20 ==
PROVIDERS: PCP Family Medicine; Visit Provider Internal Medicine Hematology & Oncology
DX: C50.919 Malignant neoplasm of unspecified site of unspecified female breast (principal); C79.51 Secondary malignant neoplasm of bone
CPT/HCPCS: 36415; 80053; 85025

== ENCOUNTER 2020-01-22 01:47 | Outpatient (CLI) | payer MEDICARE, SELFPAY ==
--- NOTE | 2020-01-22 | DI.CT_ITS ---
EXAM: CT NECK CHEST W CLINICAL HISTORY: BREAST CA METASTATIC TO BONE, C50.919, C79.51 TECHNIQUE: Imaging Protocol: Axial computed tomography images with coronal and sagittal reformatted images were created and reviewed CONTRAST MATERIAL: Intravenous: Omnipaque 350 Contrast volume:100 mL. COMPARISON: CT NECK CHEST ABD PEL W from 11/02/2019 FINDINGS: Tracheobronchial tree: There is again seen obstruction of the bronchus leading to the left lower lobe . Mediastinum and Leatha: There is stable mediastinal and hilar adenopathy. Pulmonary parenchyma: The mass in the left lower lobe is unchanged compared to the prior examination. The nodularity along the left major fissure is unchanged. There is now a ground-glass infiltrate i n the right upper lobe and right middle lobe. Pleura: No effusion or pneumothorax. Heart: The heart is not dilated. Mild coronary artery calcifications are present. There is a stable pericardial effusion. Aorta: Thoracic aorta non-dilated. Atherosclerosis. Upper abdomen: Unremarkable. Lymph nodes: Please see above. Bones: Stable areas of sclerosis are seen at the T3, T6 and T12 vertebral bodies. Soft tissues: There is a stable soft tissue mass associated with the right pectoralis muscle medially . It lies anterior to the medial right clavicle. The underlying bone appears unremarkable. There h as been no change in appearance in the soft tissue anterior to the right thyroid gland. The thyroid, submandibular and parotid glands are unremarkable. No pathologically enlarged cervical lymph nodes are present. The nasopharynx, oropharynx, hypopharynx and larynx are unremarkable. The retropharyngeal soft tissues are unremarkable. The visualized paranasal sinuses are clear. Degenerative changes are seen in the spine. IMPRESSION: Stable findings in the anterior chest wall, thoracic spine and left lower lobe. New ground-glass infiltrate in the right upper and right middle lobes. This is nonspecific. Inflamm atory or infectious process should be considered. Hemorrhage or pulmonary edema should also be consi dered. Please correlate clinically. DATA REPOSITORY: All CT scans at this facility are submitted to the National Radiology Data Registry (NRDR) Dose Index Registry (DIR) with the [employer] (ACR). RADIATION OPTIMIZATION: All CT scans at this facility use at least one of these dose optimization te chniques: automated exposure control; mA and/or kV adjustment per patient size (includes targeted exa ms where dose is matched to clinical indication); or iterative reconstruction.
[2020-01-22] MEDS: Omnipaque 350 MG/ML 100 ML BTL IJ (13:31)
[2020-01-22] MEDS: Normal Saline - Diluent 50 ML VIAL IV (13:32)
== END 2020-01-22 02:07 ==
PROVIDERS: PCP Family Medicine; Visit Provider Internal Medicine Hematology & Oncology
DX: C50.912 Malignant neoplasm of unspecified site of left female breast (principal); C79.51 Secondary malignant neoplasm of bone; R59.0 Localized enlarged lymph nodes; R91.8 Other nonspecific abnormal finding of lung field; I31.3 Pericardial effusion (noninflammatory); J98.4 Other disorders of lung
CPT/HCPCS: 70491; 71260; J3490

== ENCOUNTER 2020-01-22 09:49 | Outpatient (CLI) | payer MEDICARE, SELFPAY ==
[2020-01-22 12:29] LABS: Abs Immature Grans 0.01 k/cumm (0.0-0.09); Absolute Basophil Count 0.01 k/cumm (0.0-0.2); Absolute Eosinophil Count 0.08 k/cumm (0.0-0.7); Absolute Lymphocyte Count 0.76 k/cumm (1.2-3.4); Absolute Neutrophil Count 6.87 k/cumm (1.2-6.7); Basophils % 0.1; HCT 39.3 % (36.0-46.0); HGB 12.7 g/dL (12.0-15.5); Immature Grans % 0.1 %; Lymphocytes % 9.3; Mean Corp. HGB Concentration 32.3 g/dL (32.0-36.0); Mean Corpuscular Hemoglobin 28.8 pg (27.0-33.0); Mean Corpuscular Volume 89.1 fL (80-95); Mean Platelet Volume 10.2 fL (8.0-11.0); Monocytes % 4.9; Neutrophils % 84.6; Platelet Count 287 x1000/uL (130-400); RBC 4.41 m/cumm (4.00-5.20); RBC Distribution Width 13.6 % (11.7-14.6); White Blood Cell Count 8.13 k/cumm (4.4-10.8)
[2020-01-22 12:50] LABS: ALT 24 U/L (14-59); AST 16 U/L (15-37); Albumin 3.3 g/dL (3.4-5.0); Alkaline Phosphatase 106 U/L (46-116); Anion Gap 8.3 mmol/L (3-11); BUN 13 mg/dL (7-18); Bilirubin, Total 0.4 mg/dL (0.2-1.0); CO2 29.7 mmol/L (21.0-32.0); CREATININE 1.26 mg/dL (0.55-1.02); Calcium 9.8 mg/dL (8.5-10.1); Chloride 97 mmol/L (98-107); Estimated GFR 41.98 (mL/min/1.73m2); Glucose 126 mg/dL (74-106); Sodium 135 mmol/L (136-145); Total Protein 7.8 g/dL (6.4-8.2)
[2020-01-22 13:05] LABS: Hemoglobin A1C 5.9 % (3.8-5.6)
[2020-01-22 13:32] LABS: Calculated LDL 119 mg/dL (<100); Cholesterol 204 mg/dL (<200); Folate 7.6 ng/mL (8.6-20.0); HDL Cholesterol 53 mg/dL (40-60); Magnesium 1.7 mg/dL (1.8-2.4); TSH (W/Ref FT4) 1.82 uIU/mL (0.36-3.74); Triglyceride 162 mg/dL (<150)
== END 2020-01-22 10:09 ==
PROVIDERS: Internal Medicine Hematology & Oncology; PCP Family Medicine; Visit Provider Family Medicine
DX: C50.912 Malignant neoplasm of unspecified site of left female breast (principal); C79.51 Secondary malignant neoplasm of bone; E78.5 Hyperlipidemia, unspecified; E11.9 Type 2 diabetes mellitus without complications; R63.4 Abnormal weight loss; M81.0 Age-related osteoporosis without current pathological fracture; R60.0 Localized edema; R53.83 Other fatigue; R91.8 Other nonspecific abnormal finding of lung field
CPT/HCPCS: 70491; 80053; 80061; 82306; 71260; 82746; 83036; 83735; 84443; 85025; J3490

== ENCOUNTER → 2020-03-11 12:59 | Outpatient (BNVA) | payer MEDICARE, SELFPAY | PROVIDERS: PCP Family Medicine; Referring Provider Family Medicine; Visit Provider Surgery | DX: R11.2 Nausea with vomiting, unspecified (principal); C79.51 Secondary malignant neoplasm of bone; C78.00 Secondary malignant neoplasm of unspecified lung; I10 Essential (primary) hypertension | CPT/HCPCS: 99213 ==

== ENCOUNTER 2020-03-14 09:50 | Outpatient (CLI) | payer MEDICARE, SELFPAY ==
[2020-03-15 02:41] LABS: COVID-19 RT-PCR UVMMC Result Negative (Negative)
== END 2020-03-14 10:10 ==
PROVIDERS: PCP Family Medicine; Visit Provider Surgery
DX: Z11.59 Encounter for screening for other viral diseases (principal); Z01.818 Encounter for other preprocedural examination
CPT/HCPCS: U0003

== ENCOUNTER 2020-03-16 08:00 | Day surgery (SDC) | payer MEDICARE, SELFPAY ==
--- NOTE | 2020-03-16 06:19 | W.PM.ENDDOP ---
Date of service: 03/16/20 Time of Service: 09:35 Endoscopy Report DATE OF PROCEDURE: 03/16/20 PRE-OP DIAGNOSIS: Dry Heaves and Nausea POST-OP DIAGNOSIS: same (mild chronic gastric inflammation and mild inflammation in the distal esophagus) PROCEDURE: EGD with biopsies SURGEON: Comfort Lam ANESTHESIA: other (General/ ASA 3/Jeromy Hammonds CRNA) ESTIMATED BLOOD LOSS: 3 PATHOLOGY: other (antrum bx, Gastric body bx, GE junction bx) COMPLICATIONS: None DISPOSITION: same day INDICATIONS: 69 year old female being treated for metastatic Breast cancer to lung and spine who has developed Nausea and dry heaving in October. She has had a 40 lb weight loss due to loss of appetite. She does have a history of Gastritis and has been on Nexium for a while. Her Oncologist doesn't feel that these symptoms are due to her cancer. P\\ EGD under sedation COVID testing Risks, benefits and complications have been reviewed. Complications include but are not limited to bleeding, pain, perforation, sore throat, aspiration, and adverse reaction to the medications. Questions were entertained and answered to their satisfaction and they wished to proceed. No guarantees were given or implied. FINDINGS: mild chronic inflammation of the stomach PROCEDURE DESCRIPTION: After informed consent was obtained the patient was take to the procedure room and placed in a supine position. Monitors were applied and a time out was done. The patients name, date of , procedure type, allergies to medications and metal in their body was reviewed. A bite block was placed and the patient was sedated. Once sedated and comfortable the gastroscope was advanced through the oropharynx which was grossly normal into the esophagus. The proximal and mid-esophagus were normal. In the distal esophagus there was mild inflammation noted. The scope was advanced into the stomach and through the pylorus into the 3rd portion of the duodenum. The duodenum was noted to be normal. The scope was retracted back into the stomach. There was mild chronic inflammation with mumerous benign polyps. Biopsies were done to rule out H. pylori. There were no ulcers. The scope was retroflexed. The cardia and fundus were noted to be normal. There was no hiatal hernia noted. The scope was retracted back into the esophagus and biopsies were done of the GE junction to rule out Carballo's. The Z line was irregular. The GE junction was at 35 cm. The scope was removed and the patient was woken up and taken back to [facility] in stable condition. Follow up: 2 weeks. Try Carafate
--- NOTE | 2020-03-16 06:21 | PDOC.DSDIS_ITS ---
Discharge Plan Disposition Patient Disposition: HOME Condition: Stable Discharge Details Reason For Visit: Nausea and dry heaves Attending Provider: Comfort Lam Primary Care Provider: Lyly Ramos Home Meds and New Rx's Prescriptions: New sucralfate 1 gram tablet 1 gm PO QACHS Qty: 56 RF: 0 Continued fluticasone propionate 50 mcg/actuation spray,suspension 2 spray NS DAILY Qty: 9.9 RF: 6 zolpidem 5 mg tablet 5 mg PO QHS PRN (Reason: sleep) Qty: 30 RF: 1 letrozole 2.5 mg tablet 2.5 mg PO HS RF: 0 tramadol 50 mg tablet 50 mg PO TID MDD 3 pills PRN (Reason: pain) Qty: 30 RF: 0 folic acid 1 mg tablet 1 mg PO DAILY Qty: 90 RF: 4 ondansetron 8 mg tablet,disintegrating 8 mg PO Q6H PRN (Reason: nausea and vomiting) Qty: 100 RF: 2 bupropion HCl 300 mg tablet extended release 24 hr 150 mg PO QAM Qty: 90 RF: 4 calcium carbonate-vitamin D3 1 EACH tablet 1 ea PO BID RF: 0 losartan-hydrochlorothiazide 100-25 mg tablet 1 tab PO DAILY Qty: 90 RF: 3 polyethylene glycol 3350 [Miralax] 17 gram powder in packet 17 gm PO DAILY PRN (Reason: constipation) Qty: 100 RF: 4 lorazepam 1 mg tablet 1 mg PO QID PRN (Reason: anxiety) Qty: 60 RF: 1 dronabinol 5 mg capsule 5 mg PO BID Qty: 60 RF: 0 esomeprazole magnesium [Nexium] 40 mg capsule,delayed release(DR/EC) 40 mg PO HS RF: 0 aspirin 81 mg Tablet,Chewable 81 mg PO BID RF: 0 Discharge Instructions Additional Instructions: Findings: mild chronic inflammation Follow up: 2 weeks New Medication: Start carafate qid Please call if you develop: fevers >101.5 Nausea or Vomiting Abdominal pain that is not transient DAY SURGERY UNIT POST ENDOSCOPY INSTRUCTIONS 1. Because there will be medication in your system for the next 24 hours, you may feel a little sleepy. Your coordination will be affected. Therefore: a. Do not drive or operate dangerous equipment for 24 hours. b. Do not drink alcohol beverages for 24 hours (not even beer). c. Plan to go home and rest for the day. 2. Generally there are no restrictions on your activity after a day or so has gone by, but you may feel a bit fatigued for a few days. 3 After you arrive home you may have a light meal and return to a normal diet as you can tolerate it without feeling sick to your stomach. 4. After surgery, you may feel pain or discomfort. This should be only transient, but if it persists please contact your doctor. 5. If there are any questions regarding the findings of your procedure, please feel free to contact your doctor. 6. If you are unable to contact your doctor with a problem, contact the hospital at [phone]. 7. Continue all your regular medications unless directed otherwise. I understand the above instructions and have no questions. Signature of Patient or Responsible Adult Escort Date/Time Name of Responsible Adult Escort Signature of Nurse Date/Time Referrals: Comfort Lam MD [ [facility]FF PHYSICIAN] - 03/29/20 10:30 am Activity:: Activity as Tolerated Diet:: As Tolerated Discharge Orders Discharge Orders: Discharge Order (Routine); Ordered 03/16/20 Ordered By: Comfort Lam
[2020-03-16 08:29] VITALS: BP 128/73; PULSE 106; RESP 20; TEMP 36.4; O2SAT 97
[2020-03-16] MEDS: Lactated Ringers 1,000 ML 80 ML IV (08:44)
--- NOTE | 2020-03-16 09:27 | STOM_PTH ---
PATIENT: LAUREL MONGE LOC: [facility] U#:[id number] AGE/SX: 69/F ROOM: RE03/16/[address]: Comfort Lam MD : 1950 BED: DIS: 03/16/2020 SPEC #: [id number] RECD: 03/16/20 12:06 STATUS: DWAYNE REKaran #: [id number] MORELIA: 03/16/20 09:[address]: Comfort Lam DEPT: Surgical Specimen RECD BY: Daphnie Gomez ENTERED: 03/16/20 12:06 SP TYPE: STOMACH OTHR DR: Lyly Ramos MD, DC Tissues: 1 - STOMACH BIOPSY 2 - STOMACH BIOPSY 3 - ESOPHAGUS BIOPSY Procedures: GROSS AND MICRO LEVEL 4 SPECIAL STAIN 1 Comments: [id number]
[2020-03-16 10:00] VITALS: BP 129/64; PULSE 89; RESP 20; TEMP 36.6; O2SAT 96
== END 2020-03-16 10:50 | disposition home or self-care (01) ==
LOC: SUR 08:01
PROVIDERS: PCP Family Medicine; Visit Provider Surgery
PROC: 0DJ68ZZ Inspection of Stomach, Via Natural or Artificial Opening Endoscopic (ICD-10-PCS; CPT 43235; principal; 2020-03-16 09:00)
DX: R11.2 Nausea with vomiting, unspecified (principal); R63.4 Abnormal weight loss; Z87.19 Personal history of other diseases of the digestive system; K29.00 Acute gastritis without bleeding; K31.89 Other diseases of stomach and duodenum; K21.0 Gastro-esophageal reflux disease with esophagitis; C50.919 Malignant neoplasm of unspecified site of unspecified female breast; C78.00 Secondary malignant neoplasm of unspecified lung; C79.51 Secondary malignant neoplasm of bone; I10 Essential (primary) hypertension
CPT/HCPCS: 43239; 88305; 88312; J2704

== ENCOUNTER → 2020-03-29 10:16 | Outpatient (BNVA) | payer MEDICARE, SELFPAY | PROVIDERS: PCP Family Medicine; Referring Provider Family Medicine; Visit Provider Surgery | DX: K29.60 Other gastritis without bleeding (principal); K21.0 Gastro-esophageal reflux disease with esophagitis | CPT/HCPCS: 99212; 99213 ==

== ENCOUNTER 2020-04-18 13:01 | Inpatient (IN) | payer MEDICARE, SELFPAY ==
[2020-04-18 13:09] VITALS: BP 131/45; PULSE 105; RESP 20; TEMP 37.1; O2SAT 93
--- NOTE | 2020-04-18 13:15 | RT.EKG_ITS ---
APPROVED REPORT Exam: Resting ECG Patient Location: E HR:91 bpm ECG Measurements Heart Rate 91 AXIS MN 157 P 54 QRSd 86 QRS -30 QT 352 T 59 QTc 435 <Conclusion> Sinus rhythm...normal P axis, V-rate 60- 99 Left ventricular hypertrophy...multiple voltage criteria MN depression suggests pericarditis...ST >0.10mV, ant/lat/inf
--- NOTE | 2020-04-18 13:26 | W.ED.GENAD ---
Discharge Plan Disposition Patient Disposition: [facility] INPATIENT Condition: Serious Discharge Details Chief Complaint: GenMedical Clinical Impression: Back pain, Nausea, Hypomagnesemia, Acute hyponatremia Primary Care Provider: Lyly Ramos ED Provider: Fredrick Connolly Home Meds and New Rx's Prescriptions: No Action fluticasone propionate 50 mcg/actuation spray,suspension 2 spray NS DAILY Qty: 9.9 RF: 6 zolpidem 5 mg tablet 5 mg PO QHS PRN (Reason: sleep) Qty: 30 RF: 1 letrozole 2.5 mg tablet 2.5 mg PO HS RF: 0 tramadol 50 mg tablet 50 mg PO TID MDD 3 pills PRN (Reason: pain) Qty: 30 RF: 0 folic acid 1 mg tablet 1 mg PO DAILY Qty: 90 RF: 4 ondansetron 8 mg tablet,disintegrating 8 mg PO Q6H PRN (Reason: nausea and vomiting) Qty: 100 RF: 2 esomeprazole magnesium 40 mg capsule,delayed release(DR/EC) 40 mg PO BID Qty: 60 RF: 3 calcium carbonate-vitamin D3 1 EACH tablet 1 ea PO BID RF: 0 losartan-hydrochlorothiazide 100-25 mg tablet 1 tab PO DAILY Qty: 90 RF: 3 polyethylene glycol 3350 [Miralax] 17 gram powder in packet 17 gm PO DAILY PRN (Reason: constipation) Qty: 100 RF: 4 dronabinol 5 mg capsule 5 mg PO BID Qty: 60 RF: 0 lorazepam 1 mg tablet 1 mg PO QID PRN (Reason: anxiety) Qty: 60 RF: 1 escitalopram oxalate 10 mg tablet 10 mg PO DAILY Qty: 90 RF: 4 aspirin 81 mg Tablet,Chewable 81 mg PO BID RF: 0 Medical Decision Making 1332??69-year-old female with history of metastatic breast cancer including metastasis to spine, here with increased chronic back pain and associated nausea. Patient has not been eating normally with nausea. Consider electrolyte abnormalities. Will check labs. We will give IV fluid and IV antiemetic. Patient with generalized weakness and fatigue. Consider ACS. Screening ECG was reviewed and interpreted by me: Sinus rhythm 91 bpm, QRS duration 86, QTc 435, [place] depression is noted diffusely and raises concern for potential pericarditis. Patient has had recent cough. Will obtain chest x-ray. I will attempt to talk with patient's oncologist at [facility]. --I spoke with the oncology fellow on-call at [facility] who notes no recent imaging of the spine. Last image was from November. --Labs reviewed and reveal hypomagnesemia. I will give magnesium 1 g IV. Patient also hyponatremic. Leukocytosis noted. --I spoke with the patient's who called and explained treatment plan to him. 1551??CT of the thoracic and lumbar spine interpreted by radiology: No acute fracture or dislocation. There is some neuroforaminal stenosis noted on the left. I spoke with Dr. Segovia about chest x-ray and lung findings noted on CT, he states chronic findings appear unchanged on the left, new right lung infiltrate noted question pneumonia versus other. Given leukocytosis, cough, diagnostic imaging results and lower oxygen saturation, in the setting of likely immunosuppression, I will cover with antibiotic. Initial dose of ceftriaxone 1 g to be administered. I did speak with on-call hospitalist Dr. Le about this case and CT results were pending at that time. I called and spoke with nurse practitioner Juan about updated course including CT results. She will be placing admission orders. Care transitioned to hospitalist service. --I spoke with the patient's daughter, Freya at [phone] and updated her as to ED course and treatment plan. She was appreciative of call and will speak with the patient's . HPI General Mode of arrival: ambulatory. Date/Time Provider Initiated Documentation: 04/18/20 13:13. Limitations to Documentation: no limitations. Information obtained by: patient. HPI Narrative: 69-year-old female with history of breast cancer with metastasis to spine, lung, lymph nodes, here with increased back pain and associated nausea and generalized weakness. Patient notes pain in mid back. Pain is moderate to severe. No associated numbness or focal weakness. No associated fever. Patient has had a cough recently. No recent travel. Related Data Home Medications Medication Instructions Recorded Confirmed calcium carbonate-vitamin D3 1 ea PO BID 02/19/13 04/18/20 fluticasone propionate 50 2 spray NS DAILY #9.9 gm 06/01/19 04/18/20 mcg/actuation nasal spray,suspension losartan 100 1 tab PO DAILY #90 tab 06/04/19 04/18/20 mg-hydrochlorothiazide 25 mg tablet polyethylene glycol 3350 17 gram 17 gm PO DAILY PRN #100 each 06/26/19 04/18/20 oral powder packet aspirin 81 mg PO BID 11/02/19 04/18/20 zolpidem 5 mg tablet 5 mg PO QHS PRN #30 tab 11/10/19 04/18/20 letrozole 2.5 mg tablet 2.5 mg PO HS 12/21/19 04/18/20 tramadol 50 mg tablet 50 mg PO TID PRN #30 tab MDD 3 12/21/19 04/18/20 pills folic acid 1 mg tablet 1 mg PO DAILY #90 tab 01/25/20 04/18/20 ondansetron 8 mg disintegrating 8 mg PO Q6H PRN #100 tab 02/23/20 04/18/20 tablet dronabinol 5 mg capsule 5 mg PO BID #60 cap 03/08/20 04/18/20 escitalopram oxalate 10 mg tablet 10 mg PO DAILY #90 tab 03/17/20 04/18/20 lorazepam 1 mg tablet 1 mg PO QID PRN #60 tab 03/17/20 04/18/20 esomeprazole magnesium 40 mg 40 mg PO BID #60 cap 03/29/20 04/18/20 capsule,delayed release Previous Rx's Medication Instructions Recorded fluticasone propionate 50 2 spray NS DAILY #9.9 gm 06/01/19 mcg/actuation nasal spray,suspension losartan 100 1 tab PO DAILY #90 tab 06/04/19 mg-hydrochlorothiazide 25 mg tablet polyethylene glycol 3350 17 gram 17 gm PO DAILY PRN #100 each 06/26/19 oral powder packet zolpidem 5 mg tablet 5 mg PO QHS PRN #30 tab 11/10/19 tramadol 50 mg tablet 50 mg PO TID PRN #30 tab MDD 3 12/21/19 pills folic acid 1 mg tablet 1 mg PO DAILY #90 tab 01/25/20 ondansetron 8 mg disintegrating 8 mg PO Q6H PRN #100 tab 02/23/20 tablet dronabinol 5 mg capsule 5 mg PO BID #60 cap 03/08/20 escitalopram oxalate 10 mg tablet 10 mg PO DAILY #90 tab 03/17/20 lorazepam 1 mg tablet 1 mg PO QID PRN #60 tab 03/17/20 esomeprazole magnesium 40 mg 40 mg PO BID #60 cap 03/29/20 capsule,delayed release Allergies Allergy/AdvReac Type Severity Reaction Status Date / Time prochlorperazine Allergy Intermediate Agitation Unverified 04/18/20 16:03 [From Compazine] meloxicam AdvReac Severe GI UPSET Verified 04/18/20 16:03 atorvastatin AdvReac Intermediate GI Verified 04/18/20 16:03 INTOLERANCE azithromycin AdvReac Intermediate INTOLERANCE Verified 04/18/20 16:03 simvastatin AdvReac Intermediate INTOLERANCE Verified 04/18/20 16:03 lisinopril AdvReac Mild cough Verified 04/18/20 16:03 General Stated Complaint: GenMedical OSMEL: 3 Review of Systems All systems reviewed & are unremarkable except as noted in HPI and below Constitutional Constitutional: Denies fever(s), Denies headache(s) and Reports lethargy ENT Ears, Nose, Mouth, and Throat: Denies headache(s) Cardiovascular Cardiovascular: Denies chest pain Respiratory Respiratory: Reports cough Gastrointestinal Gastrointestinal: Denies abdominal pain, Reports nausea and Denies vomiting Musculoskeletal Musculoskeletal: Reports back pain Neurologic Neurologic: Denies headache(s) [facility] Medical History Adopted (Chronic) Chest discomfort (Acute) r/t to pt. lung cancer Chronic pain of left knee (Chronic 04/11/16) She sees Dr. Gee for this. Colon polyp (Chronic 05/09/14) 04/23/14 tubular adenoma x 2 08/2017 tubular adenoma x 8 Denial as mental defense mechanism (Chronic) helps her cope; she is self-aware of her denial Ear pain, left (Chronic) ? 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 (Acute) Metastatic cancer to spine (Acute) Neck discomfort (Acute) Neck pain (Chronic) Neoplasm of breast Otitis externa (Acute) Palliative care patient (Acute) Phlebitis (Resolved 02/19/13) Seasonal allergies (Acute) Seborrheic keratosis (Acute) Tubular adenoma Tubular adenoma (Chronic 08/12/17) Varicose veins of lower extremity Varicose veins of lower extremity (Chronic) h/o phlebitis Weight loss, non-intentional (Acute) Surgical History Abdominal hysterectomy BSO 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 Granddaughter No problems noted. Social History Smoking/Tobacco Use Status: Former Tobacco Use Quit Date: 10/07/84 Tobacco: How many years used: 20 Second Hand Exposure: Yes Alcohol Intake: former Drug use: Never Substance use type: does not use Counseling given: No Counseling provided: none Adopted: Yes Caregiver/Support person: Yes Household members: spouse Housing: house Number of Children: 1 number of grandchildren: 2 Communication Needs: Corrective Lenses Education Level: high school Do you need help understanding health information?: Often Pets and animals: Yes (Selam Hair cats x 2) Pets and animals: cat(s) Current gender identity: female What is your relationship status?: How often do you talk on the phone with friends or family?: once per week How often do you get together with friends or relatives?: once per week How often do you attend jewish or baptism services?: decline to answer Do you belong to any clubs or organized social groups?: no Panel score (0-1 are the most socially isolated patients): 1 What type of physical activity do you participate in: walking, occasional exercise and sedentary lifestyle Duration: < 15 minutes/day Frequency: 1-2 times per week Keli/Nondenominational: Jehovah'S Witness Special keli needs: No Seatbelt use: always Drive intox or ride w/intox [employer] delivery 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 They are very happy. They love to go for long car rides together. Some estrangement from daughter, unclear. Exam Const General: cooperative and no acute distress Nutritional Appearance: obese Orientation: alert and awake [facility] Head: atraumatic Mouth: moist mucous membranes Eyes Conjunctivae: normal conjunctivae Sclera: normal sclerae EOM: EOM intact bilaterally Neck Neck: trachea midline, supple and no JVD Resp Auscultation: clear to auscultation bilaterally, no rales, no rhonchi and no wheezes Cardio Jugular venous pressure: no JVD Rate: regular rate and not tachycardic Rhythm: regular rhythm GI Palpation: soft, not firm, no guarding, no masses, not rigid and nontender Back/Spine/Pelvis Thoracic/Lumbar Spine: thoracic spinal tenderness (Mid to lower) Skin General skin exam: no rashes or lesions noted Neuro General: patient alert, patient awake, patient oriented x3 and tone normal Extrem General: edema Laterality: bilateral (Nonpitting bilateral) Psych Mental Status: mental status grossly normal Speech and Movement: speech and movement normal Course Vital Signs Vital signs: Vital Signs Temperature 37.1 C 04/18/20 13:09 Pulse 105 H 04/18/20 13:09 Respiratory Rate 04/18/20 13:09 Blood Pressure 131/45 L 04/18/20 13:09 Pulse Oximetry 93 L 04/18/20 13:09 Temperature 37.1 C 04/18/20 13:09 Temperature Source Temporal Artery Scan 04/18/20 13:09 Pulse 105 H 04/18/20 13:09 Respiratory Rate 20 04/18/20 13:09 Respiratory Effort Non-Labored 04/18/20 13:19 Blood Pressure 131/45 L 04/18/20 13:09 Blood Pressure Position Supine 04/18/20 13:09 Pulse Oximetry 93 L 04/18/20 13:09 Oxygen Delivery Method Room Air 04/18/20 13:09 Oxygen Flow Rate 0 04/18/20 13:09 Pain Level 8 04/18/20 13:09
[2020-04-18] MEDS: Ondansetron 4 MG/2 ML VIAL IVP (13:28)
[2020-04-18] MEDS: Normal Saline Flush 10 ML SYR IVP (13:28)
[2020-04-18 13:30] VITALS: RESP 20
[2020-04-18] MEDS: Lactated Ringers 1,000 ML 250 ML IV (13:30)
--- NOTE | 2020-04-18 13:30 | DI.RAD_ITS ---
EXAM: XR CHEST 2V PA LATERAL CLINICAL HISTORY: cough TECHNIQUE: 2D digital imaging was performed. COMPARISON: CT CT NECK CHEST W from 01/22/2020 FINDINGS: MEDIASTINUM: Normal. HEART: Normal. PULMONARY VASCULATURE: Normal. LUNGS: Interstitial infiltrate in the right upper lobe. The left lung base is also obscured in part due to patient rotation. A left basilar infiltrate or effusion cannot be excluded. PLEURAL SPACE: No pleural effusion or pneumothorax. BONE:Degenerative changes are present. OTHER FINDINGS:Normal. IMPRESSION: Interstitial infiltrate in the right upper lobe which may represent pneumonia. DATA REPOSITORY: RADIATION DOSE DELIVERED:
[2020-04-18 13:33] LABS: Abs Immature Grans 0.06 k/cumm (0.0-0.09); Absolute Lymphocyte Count 0.52 k/cumm (1.2-3.4); Absolute Monocyte Count 0.85 k/cumm (0.11-0.7); Absolute Neutrophil Count 14.26 k/cumm (1.2-6.7); Basophils % 0.1; HCT 37.4 % (36.0-46.0); HGB 12.6 g/dL (12.0-15.5); Immature Grans % 0.4 %; Lymphocytes % 3.3; Mean Corp. HGB Concentration 33.7 g/dL (32.0-36.0); Mean Corpuscular Hemoglobin 28.4 pg (27.0-33.0); Mean Corpuscular Volume 84.4 fL (80-95); Mean Platelet Volume 9.6 fL (8.0-11.0); Monocytes % 5.4; Neutrophils % 90.8; Platelet Count 343 x1000/uL (130-400); RBC 4.43 m/cumm (4.00-5.20); RBC Distribution Width 13.4 % (11.7-14.6)
[2020-04-18 13:35] LABS: Absolute Basophil Count 0.02 k/cumm (0.0-0.2)
[2020-04-18 13:48] LABS: ALT 70 U/L (14-59); AST 30 U/L (15-37); Alkaline Phosphatase 142 U/L (46-116); Anion Gap 6.9 mmol/L (3-11); BUN 17 mg/dL (7-18); Bilirubin, Total 0.5 mg/dL (0.2-1.0); CO2 30.1 mmol/L (21.0-32.0); CREATININE 1.03 mg/dL (0.55-1.02); Calcium 9.9 mg/dL (8.5-10.1); Chloride 88 mmol/L (98-107); Estimated GFR 52.98 (mL/min/1.73m2); Glucose 160 mg/dL (74-106); Magnesium 1.5 mg/dL (1.8-2.4); Potassium 4.5 mmol/L (3.5-5.1); Sodium 125 mmol/L (136-145); Troponin I < 0.05 ng/mL (<0.06)
--- NOTE | 2020-04-18 14:00 | DI.CT_ITS ---
EXAM: CT LUMBAR SPINE W and CT thoracic spine W CLINICAL HISTORY: known mets, increase pain. TECHNIQUE: Imaging Protocol: Axial computed tomography images with coronal and sagittal reformatted images were created and reviewed CONTRAST MATERIAL: Intravenous: Omnipaque 350 Contrast volume:structured data in ml Contrast route:I V - Oral: No COMPARISON: CT CT NECK CHEST W from 01/22/2020 FINDINGS: Lumbar spine: There is osseous metastatic disease. No acute compression fractures are identified. There are degen erative changes throughout the lumbar spine characterized by disc space narrowing, endplate osteophyt es and facet arthropathy. No enhancing lesions are seen in the soft tissues. At L5-S1, mild bilateral neural foraminal narrowing is seen. No significant central spinal canal espinoza nosis is present. At L4-L5, there is mild diffuse disc bulge resulting in mild narrowing of the central spinal canal. Mild bilateral neural foraminal narrowing is seen. At L3-L4, there is a mild diffuse disc bulge resulting in mild narrowing of the central spinal canal. No significant neural foraminal stenosis is seen. At L2-L3 no significant central spinal canal or neural foraminal stenosis is seen. At L1-L2, there is no significant central spinal canal or neural foraminal stenosis. Thoracic spine: There is osseous metastatic disease. There is a very mild compression deformity at T4 which is uncha nged compared to the prior examination. No acute fracture is seen. Multilevel degenerative changes are seen in the thoracic spine. No significant central spinal canal stenosis is present. There is m etastatic involvement of the left pedicle of T7 with a soft tissue component this all contribute to c ause mild to moderate left neural foraminal stenosis. There is also soft tissue extending to the lef t into the neural foramen at T4 causing left neural foraminal stenosis. The soft tissue mass in the left lower lobe is unchanged is again noted. There is also interstitial infiltrate in the right lung . IMPRESSION: 1. Osseous metastatic disease. No acute fracture or subluxation. 2. Multilevel degenerative changes in the lumbar spine. 3. Metastatic involvement at T7 and T4 causing left neural foraminal stenosis. 4. Left lower lobe pulmonary mass and right interstitial infiltrate. RADIATION DOSE DELIVERED: Total DLP DATA REPOSITORY: All CT scans at this facility are submitted to the National Radiology Data Registry (NRDR) Dose Index Registry (DIR) with the [employer] (ACR). RADIATION OPTIMIZATION: All CT scans at this facility use at least one of these dose optimization te chniques: automated exposure control; mA and/or kV adjustment per patient size (includes targeted exa ms where dose is matched to clinical indication); or iterative reconstruction.
[2020-04-18] MEDS: MAGNESIUM SULFATE 1 GM/100 ML BAG IVPB ×2 (15:30→20:38)
[2020-04-18] MEDS: Omnipaque 350 MG/ML 100 ML BTL IJ (15:32)
[2020-04-18] MEDS: Normal Saline - Diluent 50 ML VIAL IV (15:33)
--- NOTE | 2020-04-18 16:22 | HPE_ITS ---
Date of service: 04/18/20 Time of Service: 16:22 Assessment and Plan Assessment and plan (1) Breast cancer metastasized to bone: Start date: 04/18/20 Start time: 16:37 Status: Acute Assessment and plan: Presents with severe back pain. Mets to the bone and lungs from breasts. Will admit for pain management, also found to have infiltrate on Right lung will treat with doxy and rocephine low dose fentanyl patch IV dilaudid prednisone burst-shown to improve bone pain ativan prn anxiety (2) CAP (community acquired pneumonia): Start date: 04/18/20 Start time: 16:39 Status: Acute Assessment and plan: Found on imaging. Ceftriaxone with doxy BC pending ICS, sputum culture mucinex prn (3) Back pain: Start date: 04/18/20 Start time: 16:40 Status: Acute Assessment and plan: from mets, as above (4) Hypomagnesemia: Start date: 04/18/20 Start time: 16:40 Status: Acute Assessment and plan: mag 1.5 received 1 gm in ED and will add another 2 gm on the floor repeat mag in am. Continue to monitor. (5) Acute hyponatremia: Start date: 04/18/20 Start time: 16:40 Status: Acute Assessment and plan: She states she is not eating or drinking. Will replet e with LR at 150. recheck labs in am. (6) Mass of left lung: Start date: 04/18/20 Start time: 16:41 Status: Acute Assessment and plan: as above (7) DVT prophylaxis: Start date: 04/18/20 Start time: 16:41 Status: Acute Assessment and plan: Heparin subcu above case discussed with Dr. Linares who is in agreement. History of Present Illness History of Present Illness Chief Complaint: Severe back pain, Metastatic Cancer, CAP Narrative: 69 y.o female with Breast cancer metastasized to the bone presents to the emergency department with severe back and side pain progressively getting worse to the point that she was unable to get out of bed. Labs in the ED reveal sodium of 125, Mag 1.5, and WBC of 15.7. Imaging with RUL infilitrate which may represent pneumonia, CT of thoracic and lumbar spine osseous metastatic disease, LLL pulmonary mass, and t7 and t4 neural foraminal stenosis. She is being admitted to m/s for further management. Rocephine and doxycycline started for CAP, LR at 150, low dose fentanyl patch with IV dilaudid for pain. Will also use steroid burst for metastatic bone pain. Palliative consult. She denies CP, SOB, N/V/D. Review of Systems All systems reviewed & are unremarkable except as noted in HPI and below [facility] Medical History Adopted (Chronic) Chest discomfort (Acute) r/t to pt. lung cancer Chronic pain of left knee (Chronic 04/11/16) She sees Dr. Gee for this. Colon polyp (Chronic 05/09/14) 04/23/14 tubular adenoma x 2 08/2017 tubular adenoma x 8 Denial as mental defense mechanism (Chronic) helps her cope; she is self-aware of her denial Ear pain, left (Chronic) ? 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 (Acute) Neck discomfort (Acute) Neck pain (Chronic) Neoplasm of breast Otitis externa (Acute) Palliative care patient (Acute) Phlebitis (Resolved 02/19/13) Seasonal allergies (Acute) Seborrheic keratosis (Acute) Tubular adenoma Tubular adenoma (Chronic 08/12/17) Varicose veins of lower extremity Varicose veins of lower extremity (Chronic) h/o phlebitis Weight loss, non-intentional (Acute) Surgical History Abdominal hysterectomy BSO 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; DCIS; lobular CA in situ Colonoscopy - [facility] (08/12/17) EGD - MAC (08/30/14) History of biopsy (Acute) right clavicle, 11/03/2019Dr Quiñones Family History Daughter Osteoarthritis Grandson No problems noted. Granddaughter No problems noted. Social History Smoking/Tobacco Use Status: Former Tobacco Use Quit Date: 10/07/84 Tobacco: How many years used: 20 Second Hand Exposure: Yes Alcohol Intake: former Drug use: Never Substance use type: does not use Counseling given: No Counseling provided: none Adopted: Yes Caregiver/Support person: Yes Household members: spouse Housing: house Number of Children: 1 number of grandchildren: 2 Communication Needs: Corrective Lenses Education Level: high school Do you need help understanding health information?: Often Pets and animals: Yes (Selam Hair cats x 2) Pets and animals: cat(s) Current gender identity: female What is your relationship status?: How often do you talk on the phone with friends or family?: once per week How often do you get together with friends or relatives?: once per week How often do you attend temple or bahai services?: decline to answer Do you belong to any clubs or organized social groups?: no Panel score (0-1 are the most socially isolated patients): 1 What type of physical activity do you participate in: walking, occasional exercise and sedentary lifestyle Duration: < 15 minutes/day Frequency: 1-2 times per week Keli/Advent: Protestant Special keli needs: No Seatbelt use: always Drive intox or ride w/intox driver supervisor: No Fire extinguisher in home: Yes Do you feel safe at home: Yes Do you feel safe in your relationship?: Yes Additional Social history: She and her will celebrate their 50th anniversary in Jun 2020. 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 They are very happy. They love to go for long car rides together. Some estrangement from daughter, unclear. Meds Home Medications and Allergies Home Medications Medication Instructions Recorded Confirmed Type calcium carbonate-vitamin D3 1 ea PO BID 02/19/13 04/18/20 History fluticasone propionate 50 2 spray NS DAILY #9.9 gm 06/01/19 04/18/20 Rx mcg/actuation nasal spray,suspension losartan 100 1 tab PO DAILY #90 tab 06/04/19 04/18/20 Rx mg-hydrochlorothiazide 25 mg tablet polyethylene glycol 3350 17 gram 17 gm PO DAILY PRN #100 each 06/26/19 04/18/20 Rx oral powder packet aspirin 81 mg PO BID 11/02/19 04/18/20 History zolpidem 5 mg tablet 5 mg PO QHS PRN #30 tab 11/10/19 04/18/20 Rx letrozole 2.5 mg tablet 2.5 mg PO HS 12/21/19 04/18/20 History tramadol 50 mg tablet 50 mg PO TID PRN #30 tab MDD 3 12/21/19 04/18/20 Rx pills folic acid 1 mg tablet 1 mg PO DAILY #90 tab 01/25/20 04/18/20 Rx ondansetron 8 mg disintegrating 8 mg PO Q6H PRN #100 tab 02/23/20 04/18/20 Rx tablet dronabinol 5 mg capsule 5 mg PO BID #60 cap 03/08/20 04/18/20 Rx escitalopram oxalate 10 mg tablet 10 mg PO DAILY #90 tab 03/17/20 04/18/20 Rx lorazepam 1 mg tablet 1 mg PO QID PRN #60 tab 03/17/20 04/18/20 Rx esomeprazole magnesium 40 mg 40 mg PO BID #60 cap 03/29/20 04/18/20 Rx capsule,delayed release Allergies Allergy/AdvReac Type Severity Reaction Status Date / Time prochlorperazine Allergy Intermediate Agitation Unverified 04/18/20 16:03 [From Compazine] meloxicam AdvReac Severe GI UPSET Verified 04/18/20 16:03 atorvastatin AdvReac Intermediate GI Verified 04/18/20 16:03 INTOLERANCE azithromycin AdvReac Intermediate INTOLERANCE Verified 04/18/20 16:03 simvastatin AdvReac Intermediate INTOLERANCE Verified 04/18/20 16:03 lisinopril AdvReac Mild cough Verified 04/18/20 16:03 Exam Narrative Exam Narrative: Tearful elderly lady looking very uncomfortable lying in stretcher, noticable pain with grimicing. AAOx3. Aware that she has mets to the bone and pneumonia. She is cooperative with assessment, PERRLA, EOMI, no lymphedema or JVD, there is what appears to be a cluster of possible dermatits to chest. left side of chest diminished, right side with slight crackling, tachy heart rate regular heart rate and rhythm. BS x 4 large pannus, did not make patient move to side due to severe pain, did not auscultate posterior lungs. Skin, intact no clubbing cyanosis, or edema. Const General: cooperative and in distress (severe pain) mild Nutritional Appearance: overweight Orientation: alert, awake and oriented x3 HENMT Head: normal to inspection, normocephalic and atraumatic Ears: hearing grossly normal bilaterally Results Labs Result diagrams: 04/18/20 13:24 04/18/20 13:24 Labs: Laboratory Results - last 24 hr 04/18/20 04/18/20 13:24 13:24 WBC 15.70 H RBC 4.43 Hgb 12.6 Hct 37.4 MCV 84.4 MCH 28.4 MCHC 33.7 RDW 13.4 Plt Count 343 MPV 9.6 Immature Gran % 0.4 Neutrophils % 90.8 Lymphocytes % 3.3 Monocytes % 5.4 Eosinophils % 0.0 Basophils % 0.1 Absolute Neutrophils 14.26 H Absolute Lymphocytes 0.52 L Absolute Monocytes 0.85 H Absolute Eosinophils 0.00 Absolute Basophils 0.02 Sodium 125 L Potassium 4.5 Chloride 88 L Carbon Dioxide 30.1 Anion Gap 6.9 BUN 17 Creatinine 1.03 H Estimated GFR/1.73 m2 52.98 Glucose 160 H Calcium 9.9 Magnesium 1.5 L Total Bilirubin 0.5 AST 30 ALT 70 H Alkaline Phosphatase 142 H Troponin I < 0.05 Total Protein 8.0 Albumin 3.0 L Last Vital Signs Temp 37.1 C 04/18/20 13:09 Pulse 105 H 04/18/20 13:09 Resp 20 04/18/20 13:30 BP 131/45 L 04/18/20 13:09 Pulse Ox 93 L 04/18/20 13:09 COVID-19 Screening Have you,or household,traveled outside [place] in last 14 days?: No Had IN PERSON contact w/suspected or confirmed C-19 person: No
[2020-04-18] MEDS: cefTRIAXone 1 GM/50 ML BAG IVPB (16:44)
[2020-04-18] MEDS: Normal Saline 1,000 ML 150 ML IV (16:44)
[2020-04-18 17:08] VITALS: BP 113/42; PULSE 79; RESP 16; TEMP 36.6; O2SAT 97
[2020-04-18 17:42] VITALS: BP 144/71; PULSE 85; RESP 22; TEMP 36.9; O2SAT 95
[2020-04-18 18:00] VITALS: BP 144/71; PULSE 85; RESP 22; TEMP 36.9; O2SAT 95
[2020-04-18] MEDS: Doxycycline Hyclate 100 MG CAP PO (18:09)
[2020-04-18] MEDS: Lactated Ringers 1,000 ML 150 ML IV (18:10)
[2020-04-18] MEDS: fentaNYL 12 MCG PATCH TD (18:10)
[2020-04-18] MEDS: Heparin 5,000 UNITS/ML VIAL 5000 UNITS SC (18:10)
[2020-04-18] MEDS: predniSONE 20 MG TAB 60 MG PO (18:12)
[2020-04-18 19:11] LABS: Bilirubin Negative (Negative); Blood Negative (Negative); Clarity Clear (Clear); Glucose Negative (Negative); Ketones Negative (Negative); Leukocyte Esterase Trace (Negative); Nitrite Negative (Negative); Urobilinogen 0.2 EU/dL (Up TO 0.2)
[2020-04-18 19:16] LABS: Bacteria Negative HPF (Negative); C & S Indicated? Yes; Casts Negative LPF (Negative); Crystals Negative HPF (Negative); Epithelial Cells Few HPF (Negative); Mucus Negative (Negative); Other Cells Negative (Negative); RBC 0-2 HPF (0-2); WBC 0-2 HPF (0-5)
[2020-04-18] MEDS: guaiFENesin 600 MG TABCR PO (20:37)
[2020-04-18] MEDS: Aspirin 81 MG CHEW PO (20:38)
[2020-04-18] MEDS: LORazepam 0.5 MG TAB PO (20:38)
[2020-04-18] MEDS: Dronabinol 2.5 MG CAP 5 MG PO (20:38)
[2020-04-18 21:09] VITALS: BP 131/67; PULSE 77; RESP 18; TEMP 36.9; O2SAT 95
[2020-04-18] MEDS: Letrozole 2.5 MG TAB PO (22:02)
[2020-04-19] MEDS: Lactated Ringers 1,000 ML 150 ML IV ×3 (01:28→14:01)
[2020-04-19] MEDS: Heparin 5,000 UNITS/ML VIAL 5000 UNITS SC ×3 (01:28→18:17)
[2020-04-19] MEDS: Doxycycline Hyclate 100 MG CAP PO ×2 (05:46→18:17)
[2020-04-19 06:58] LABS: Abs Immature Grans 0.03 k/cumm (0.0-0.09); Absolute Basophil Count 0.01 k/cumm (0.0-0.2); Basophils % 0.1; HCT 34.2 % (36.0-46.0); HGB 11.4 g/dL (12.0-15.5); Immature Grans % 0.3 %; Lymphocytes % 4.2; Mean Corp. HGB Concentration 33.3 g/dL (32.0-36.0); Mean Corpuscular Hemoglobin 28.5 pg (27.0-33.0); Mean Corpuscular Volume 85.5 fL (80-95); Mean Platelet Volume 9.6 fL (8.0-11.0); Monocytes % 4.2; Neutrophils % 91.2; Platelet Count 310 x1000/uL (130-400); RBC Distribution Width 13.4 % (11.7-14.6); White Blood Cell Count 11.55 k/cumm (4.4-10.8)
[2020-04-19 07:03] LABS: Absolute Lymphocyte Count 0.49 k/cumm (1.2-3.4); Absolute Monocyte Count 0.49 k/cumm (0.11-0.7); Absolute Neutrophil Count 10.53 k/cumm (1.2-6.7)
[2020-04-19 07:25] LABS: Anion Gap 6.7 mmol/L (3-11); BUN 14 mg/dL (7-18); CO2 29.3 mmol/L (21.0-32.0); CREATININE 0.87 mg/dL (0.55-1.02); Calcium 9.7 mg/dL (8.5-10.1); Chloride 93 mmol/L (98-107); Glucose 143 mg/dL (74-106); Magnesium 1.9 mg/dL (1.8-2.4); Potassium 4.8 mmol/L (3.5-5.1); Sodium 129 mmol/L (136-145)
[2020-04-19 07:44] VITALS: BP 132/64; PULSE 69; RESP 18; TEMP 36; O2SAT 94
[2020-04-19] MEDS: Aspirin 81 MG CHEW PO ×2 (07:51→20:27)
[2020-04-19] MEDS: Dronabinol 2.5 MG CAP 5 MG PO ×2 (07:52→20:27)
[2020-04-19] MEDS: predniSONE 20 MG TAB 60 MG PO (07:52)
[2020-04-19] MEDS: Folic Acid 1 MG TAB PO (07:52)
[2020-04-19] MEDS: guaiFENesin 600 MG TABCR PO ×2 (07:52→20:27)
--- NOTE | 2020-04-19 08:40 | INITIAL_ITS ---
- If Service Date Differs Date of service: 04/19/20 Time of Service: 08:40 Care Management Initial Assess REASON FOR HOSPITALIZATION:: Breast Cancer, with metastic disease to bone PAST MEDICAL HISTORY/PAST SURGICAL HISTORY:: 69 female with h/o breast cancer 2009, s/p lumpectormy/XRT; and former 2 PPD smoker -- seen earlier today with some 3-4 weeks of progressive anorexia and nausea. No abdominal pain or diarrhea. W/u of note for CT showing large LLL mass with hilar nodes, perocardial effusion and probable L5 metastatic lesion. Adopted, chest discomfort, chronic pain of left knee, colon polyp, left ear pain, essential hypertension, fatigue, GERD, gastroesophageal reflux disease, Hyperlipidemia, lesion of nose, lumbago, malignant neoplasm of female breast, nausea, neck discomfort, neck pain, otitis externa, phlebitis, seasonal allergies, suborrheic keratosis, tubular adenoma, varicose veins of LE, non-intentional weight loss, abdominal hysterectomy, biopsy of breast, colonoscopy, EGD. PREVIOUS FUNCTIONAL STATUS/SOCIAL/FAMILY SUPPORTS:: Sindi is retired and resides in [place] with her , Herman. Their daughter resides in [place], [place]. She is independent with all ADLs in the community. CURRENT FUNCTIONAL STATUS:: Sindi is sitting up in bed she is alert and engaged she is tearful at times. She states she has had no strength to do her outside work she loves to garden and has not been able to. She states her Herman does everything for her. She has palliative care she wants to know more about the service and how they help. MAC reviewed services with her and she states she has a better understanding. She wants someone to come to their home and give her a break. She states he will keep doing everything but she admits that she would like him to be able to leave once in awhile and take a break. She is open to the discussion of home health to help her at home she states she will talk to her spouse this evening about services. She is elated to hear that her can come visit her. MAC contacted the refrigeration supervisor and provided his name for sentry. ADVANCE DIRECTIVES:: DPOA: Herman Hussein Has patient been provided with info about the portal/API?: No Did the patient sign up for the portal?: No (Enrolled ) CODE STATUS:: Full Code INSURANCE COVERAGE / FINANCIAL ISSUES:: Medicare and financal assist CURRENT HOME/COMMUNITY SERVICES/EQUIPMENT:: Grab bars, tub bench PRIMARY CARE PHYSICIAN:: Lyly Ramos POTENTIAL DISCHARGE NEEDS:: Follow up scheduled with priamry care, oncology and palliative care PATIENT/FAMILY EDUCATION NEEDS:: Discharge eudcation, limitations and follow up plan of care. ANTICIPATED BARRIERS TO DISCHARGE:: No anticiapted barriers TRANSPORTATION:: Via private car with spouse at time of discharge. PLAN:: Sindi remains inpatient today she will be discharged when medically ready. She is receiving IV abx. She will consider home health services which will be through [facility] and would benefit from nursing, PT and OT. CM will continue to assess for coordiantion of discharge needs.
[2020-04-19] MEDS: Polyethylene Glycol 3350 17 GM PACKET PO (09:16)
[2020-04-19] MEDS: Fluticasone NASAL SPRAY 16 GM BTL NS (09:16)
[2020-04-19] MEDS: Escitalopram 10 MG TAB PO (12:07)
[2020-04-19] MEDS: Esomeprazole 40 MG CAPCR PO ×2 (12:07→20:27)
[2020-04-19 14:27] LABS: COVID-19 RT-PCR UVMMC Result Negative (Negative)
--- NOTE | 2020-04-19 14:43 | W.PM.PROGNOT ---
Date of Service Date of service: 04/19/20 Time of Service: 14:43 Assessment and Plan Assessment and plan (1) CAP (community acquired pneumonia): Status: Acute Assessment and plan: day 2 doxy and ceftriaxone. oxygenating well on room air. continue pulmonary toilet. cultures pending. white count normalizing (2) Breast cancer metastasized to bone: Status: Acute Assessment and plan: continue letrozole. continue home pain management regimen. stable pain. (3) Hypomagnesemia: Status: Acute Assessment and plan: replete and follow. (4) Essential hypertension: Status: Chronic Assessment and plan: blood pressure stable, continue home medications (5) DVT prophylaxis: Status: Acute Assessment and plan: heparin sq 5000 mg q8h. (6) Discharge planning issues: Status: Acute Assessment and plan: case management following PT/OT consult for discharge planning. anticipate home, +/- symptoms case discussed with Dr Le who is in agreement. Subjective Subjective Patient reports: no new complaints, feels better, tolerating liquids well and afebrile; denies tolerating a regular diet (has anorexia which is ongoing since october), nausea and vomiting Exam Const General: cooperative, comfortable and no acute distress Nutritional Appearance: overweight Orientation: alert, awake and oriented x3 HENMT Head: normal to inspection, normocephalic and atraumatic Mouth: moist mucous membranes abnormal (oral mucosa dry) Resp Effort & Inspection: normal respiratory effort Auscultation: clear to auscultation bilaterally Cardio Rate: regular rate Rhythm: regular rhythm GI Inspection: normal to inspection Palpation: soft Auscultation: normal bowel sounds Skin Rashes: rashes noted (anterior chest wall, red raised, not itchy) Neuro General: patient alert, patient awake and patient oriented x3 Cranial Nerves: CN's II-XI intact bilaterally Cognition: normal cognition Speech: speech normal Gait: normal gait Extrem General: normal to inspection and full ROM Objective Objective Clinical Data: Abnormal lab results 04/18/20 04/19/20 04/19/20 Range/Units 18:30 06:39 06:39 WBC 11.55 H (4.4-10.8) k/cumm Hgb 11.4 L (12.0-15.5) g/dL Hct 34.2 L (36.0-46.0) % Absolute Neutrophils 10.53 H (1.2-6.7) k/cumm Absolute Lymphocytes 0.49 L (1.2-3.4) k/cumm Sodium 129 L (136-145) mmol/L Chloride 93 L (98-107) mmol/L Glucose 143 H (74-106) mg/dL Ur Leukocyte Esterase Trace H (Negative) Vital Signs Temperature 36 C L 04/19/20 07:44 Temperature Source Tympanic 04/19/20 07:44 Pulse 69 04/19/20 07:44 Pulse Rhythm Regular 04/19/20 08:26 Respiratory Rate 18 04/19/20 07:44 Respiratory Effort Non-Labored 04/19/20 08:26 Respiratory Depth Normal 04/19/20 08:26 Respiratory Pattern Normal 04/19/20 08:26 Blood Pressure 132/64 04/19/20 07:44 Blood Pressure Position Supine 04/18/20 13:09 Pulse Oximetry 94 L 04/19/20 07:44 Oxygen Delivery Method Room Air 04/19/20 07:44 Oxygen Flow Rate 0 04/19/20 07:44 Pain Level 3 04/19/20 07:44 Intake & Output 04/18/20 04/19/20 04/19/20 23:59 11:59 23:59 Intake Total 1472.5 / 1472.5 2300 / 3365 1065 / 3365 Output Total 800 / 800 900 / 1600 700 / 1600 Balance 672.5 / 672.5 1400 / 1765 365 / 1765 Weight 102.965 kg Intake: IV 1232.5 / 1232.5 2000 / 2815 815 / 2815 Oral 240 / 240 300 / 550 250 / 550 Output: Urine 800 / 800 900 / 1600 700 / 1600 Other: Urine Color Light Alecia Yellow Yellow Urine Appearance Clear Clear Clear Urine Odor Normal Voiding Methods Toilet Bedside Commode Toilet Laboratory Results WBC 11.55 k/cumm (4.4-10.8) H 04/19/20 06:39 RBC 4.00 m/cumm (4.00-5.20) 04/19/20 06:39 Hgb 11.4 g/dL (12.0-15.5) L 04/19/20 06:39 Hct 34.2 % (36.0-46.0) L 04/19/20 06:39 MCV 85.5 fL (80-95) 04/19/20 06:39 MCH 28.5 pg (27.0-33.0) 04/19/20 06:39 MCHC 33.3 g/dL (32.0-36.0) 04/19/20 06:39 RDW 13.4 % (11.7-14.6) 04/19/20 06:39 Plt Count 310 x1000/uL (130-400) 04/19/20 06:39 MPV 9.6 fL (8.0-11.0) 04/19/20 06:39 Immature Gran % 0.3 % 04/19/20 06:39 Neutrophils % 91.2 04/19/20 06:39 Lymphocytes % 4.2 04/19/20 06:39 Monocytes % 4.2 04/19/20 06:39 Eosinophils % 0.0 04/19/20 06:39 Basophils % 0.1 04/19/20 06:39 Absolute Neutrophils 10.53 k/cumm (1.2-6.7) H 04/19/20 06:39 Absolute Lymphocytes 0.49 k/cumm (1.2-3.4) L 04/19/20 06:39 Absolute Monocytes 0.49 k/cumm (0.11-0.7) 04/19/20 06:39 Absolute Eosinophils 0.00 k/cumm (0.0-0.7) 04/19/20 06:39 Absolute Basophils 0.01 k/cumm (0.0-0.2) 04/19/20 06:39 Sodium 129 mmol/L (136-145) L 04/19/20 06:39 Potassium 4.8 mmol/L (3.5-5.1) 04/19/20 06:39 Chloride 93 mmol/L (98-107) L 04/19/20 06:39 Carbon Dioxide 29.3 mmol/L (21.0-32.0) 04/19/20 06:39 Anion Gap 6.7 mmol/L (3-11) 04/19/20 06:39 BUN 14 mg/dL (7-18) 04/19/20 06:39 Creatinine 0.87 mg/dL (0.55-1.02) 04/19/20 06:39 Estimated GFR/1.73 m2 >= 60.00 (mL/min/1.73m2) 04/19/20 06:39 Glucose 143 mg/dL (74-106) H 04/19/20 06:39 Calcium 9.7 mg/dL (8.5-10.1) 04/19/20 06:39 Magnesium 1.9 mg/dL (1.8-2.4) 04/19/20 06:39 Total Bilirubin 0.5 mg/dL (0.2-1.0) 04/18/20 13:24 AST 30 U/L (15-37) 04/18/20 13:24 ALT 70 U/L (14-59) H 04/18/20 13:24 Alkaline Phosphatase 142 U/L (46-116) H 04/18/20 13:24 Troponin I < 0.05 ng/mL (<0.06) 04/18/20 13:24 Total Protein 8.0 g/dL (6.4-8.2) 04/18/20 13:24 Albumin 3.0 g/dL (3.4-5.0) L 04/18/20 13:24 Urine Color Yellow (Yellow) 04/18/20 18:30 Urine Clarity Clear (Clear) 04/18/20 18:30 Urine pH 7.0 (5-8) 04/18/20 18:30 Ur Specific [employer] 1.010 (1.005-1.025) 04/18/20 18:30 Urine Protein Negative mg/dL (Negative) 04/18/20 18:30 Urine Ketones Negative mg/dL (Negative) 04/18/20 18:30 Urine Blood Negative (Negative) 04/18/20 18:30 Urine Nitrite Negative (Negative) 04/18/20 18:30 Urine Bilirubin Negative (Negative) 04/18/20 18:30 Urine Urobilinogen 0.2 EU/dL (Up TO 0.2) 04/18/20 18:30 Ur Leukocyte Esterase Trace (Negative) H 04/18/20 18:30 Urine RBC 0-2 HPF (0-2) 04/18/20 18:30 Urine WBC 0-2 HPF (0-5) 04/18/20 18:30 Ur Epithelial Cells Few HPF (Negative) 04/18/20 18:30 Urine Crystals Negative HPF (Negative) 04/18/20 18:30 Urine Bacteria Negative HPF (Negative) 04/18/20 18:30 Urine Casts Negative LPF (Negative) 04/18/20 18:30 Urine Mucus Negative (Negative) 04/18/20 18:30 Urine Other Negative (Negative) 04/18/20 18:30 Ur Culture Indicated? Yes 04/18/20 18:30 Urine Glucose Negative mg/dL (Negative) 04/18/20 18:30 COVID-19 PCR Negative (Negative) 04/18/20 18:30 Nasopharyn COVID-19 PCR Not Applicable 04/18/20 18:30 Ref Test Perform Site [facility] 04/18/20 18:30
[2020-04-19] MEDS: Normal Saline Flush 10 ML SYR IVP (15:29)
[2020-04-19] MEDS: cefTRIAXone 1 GM/50 ML BAG IVPB (15:29)
[2020-04-19 15:53] VITALS: BP 130/75; PULSE 93; RESP 22; TEMP 36.6; O2SAT 94
[2020-04-19] MEDS: Calcium 600mg/Vit D 200U TAB 1 TAB PO (20:27)
[2020-04-19] MEDS: LORazepam 0.5 MG TAB PO (20:29)
[2020-04-19] MEDS: Letrozole 2.5 MG TAB PO (21:14)
[2020-04-19 22:31] VITALS: BP 120/61; PULSE 64; RESP 18; TEMP 36.1; O2SAT 93
[2020-04-19] MEDS: Zolpidem 5 MG TAB PO (22:48)
[2020-04-20] MEDS: Heparin 5,000 UNITS/ML VIAL 5000 UNITS SC ×2 (02:10→09:13)
[2020-04-20] MEDS: Doxycycline Hyclate 100 MG CAP PO (05:56)
[2020-04-20 07:22] LABS: Abs Immature Grans 0.06 k/cumm (0.0-0.09); Absolute Lymphocyte Count 0.51 k/cumm (1.2-3.4); Absolute Monocyte Count 0.71 k/cumm (0.11-0.7); Immature Grans % 0.5 %; Lymphocytes % 4.2; Mean Corp. HGB Concentration 33.3 g/dL (32.0-36.0); Mean Corpuscular Hemoglobin 28.6 pg (27.0-33.0); Mean Corpuscular Volume 85.9 fL (80-95); Mean Platelet Volume 9.7 fL (8.0-11.0); Monocytes % 5.8; Neutrophils % 89.5; Platelet Count 326 x1000/uL (130-400); RBC 3.84 m/cumm (4.00-5.20); RBC Distribution Width 13.3 % (11.7-14.6); White Blood Cell Count 12.18 k/cumm (4.4-10.8)
[2020-04-20 07:34] LABS: Anion Gap 6.7 mmol/L (3-11); BUN 15 mg/dL (7-18); CO2 27.3 mmol/L (21.0-32.0); CREATININE 0.83 mg/dL (0.55-1.02); Calcium 9.5 mg/dL (8.5-10.1); Chloride 94 mmol/L (98-107); Glucose 145 mg/dL (74-106); Potassium 4.5 mmol/L (3.5-5.1); Sodium 128 mmol/L (136-145)
[2020-04-20 07:59] VITALS: BP 152/75; PULSE 60; RESP 16; TEMP 36.5; O2SAT 94
--- NOTE | 2020-04-20 07:59 | OTIE_ITS ---
Occupational Therapy Notes Inpatient Occupational Therapy Evaluation Date: 04/20/20 Referring Doctor:Dang Canela NP OT Orders: Non-Urgent Precautions: Fall, Standard, Full PATIENT PROFILE/ADMITTING DIAGNOSIS: Pt is a 69 year old female who presented to the ER on 04/18/20 with a dx of back pain, nausea, hypomagnesemia, acute hyponatremia and CAP, breast cancer matastesized to the bone, HTN. Past Medical History- Medical History Adopted (Chronic) Chest discomfort (Acute) r/t to pt. lung cancer Chronic pain of left knee (Chronic 04/11/16) She sees Dr. Gee for this. Colon polyp (Chronic 05/09/14) 04/23/14 tubular adenoma x 2 08/2017 tubular adenoma x 8 Denial as mental defense mechanism (Chronic) helps her cope; she is self-aware of her denial Ear pain, left (Chronic) ? 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 cancer to spine (Acute) Neck discomfort (Acute) Neck pain (Chronic) Neoplasm of breast Otitis externa (Acute) Palliative care patient (Acute) Phlebitis (Resolved 02/19/13) Seasonal allergies (Acute) Seborrheic keratosis (Acute) Tubular adenoma Tubular adenoma (Chronic 08/12/17) Varicose veins of lower extremity Varicose veins of lower extremity (Chronic) h/o phlebitis Weight loss, non-intentional (Acute) Surgical History Abdominal hysterectomy BSO 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; DCIS; lobular CA in situ Colonoscopy - MAC (08/12/17) EGD - MAC (08/30/14) History of biopsy (Acute) right clavicle, 11/03/2019, Dr Quiñones Social History/Home Situation: Pt states that she lives in a private home with her . She utilizes a quad cane at baseline due to dizziness from her medications. She has one step to enter and a small lip on the top part of her floor. She states that her always stands behind her to make sure that she doesn't fall. She states that she is (I) with dressing, bathing in a tub shower and she utilizes a shower seat and grab bars. She has a raised toilet to help with getting on and off the toilet. Her plays the role of the main caregiver and helps with all the special educator including cooking, laundry which is located in the basement, grocery shopping. Equipment owned/DME: shower seat, grab bars, cane SUBJECTIVE: Pt was sitting in bed when OT arrived. She was agreeable to OT consult and notes that she plans to return home today or tomorrow. She states that she was not receptive to HH services at this time. OBJECTIVE: General Observation: Pleasant and able to answer questions appropriately, IV (R) UE, pt was emotional at times Mental Status: A&Ox3 Pain: no c/o pain ROM: RUE AROM WFL, (R) shoulder limited by 10* due to humerus fx from years ago L UE AROM WFL STRENGTH: RUE Shoulder flexion 4/5, bicep 4-/5, tricep 4-/5, ancillary services manager therapy is symmetrical and strong LUE Shoulder flexion 4+/5, bicep 4-/5, tricep 4+/5, ancillary services manager therapy is symmetrical and strong *Pt is (L) hand dominant. SENSATION: Intact (B) UE FUNCTIONAL MOBILITY/ADLS: Transfers with cane Supine-sit (I) Sit-Stand SBA Stand-sit SBA BATHING Pt denies, she reports that she gets herself bathed in the bathroom each morning by herself. DRESSING Sitting on side of the bed Dressing UE NT pt denies Dressing LE Max (A) don and doffing (B) socks as pt states that she has bigger feet and does not like the socks. BALANCE: Static sitting Normal Dynamic Sitting Normal Static Standing Good Dynamic Standing Good SPECIAL TESTS: Daily Activity Limitations Standardized Measure [facility] AM -PAC ?6 clicks? Daily Activity Inpatient Short Form: Raw score: 17 Standardized score: 37.26 CMS score: 50.11% INFORMED CONSENT/EDUCATION: Pt instructed in purpose of OT Consult and plan of care. ASSESSMENT: Patient is a 69-year-old female referred to occupational therapy services with diagnosis of back pain, nausea, hypomagnesemia, acute hyponatremia and CAP, breast cancer matastesized to the bone, HTN. Patient presents with clinical signs and symptoms consistent with dx, as demonstrated by the following impairment level findings/functional limitations: Decreased functional activity tolerance, decreased functional mobility required for ADLs/IADLs, decreased LE dressing, decreased standing tolerance for bathing routine so pt utilizes a shower seat. AMPAC score 17 Patient is assessed as a Low 70026 complexity based on the following: History: See above Examination: see functional limitations above Presentation: Evolving Decision Making: AMPAC score 17 GOALS Goals x1 week 1. Transfers with cane 2. Dressing- (I) in seated position 3. Bathing- (I) in seated position 4. Toileting- on toilet (I) 5. Eating- (I) PLAN OF CARE/TREATMENT PLAN: 1x/day, 5 days/ week x 1week Initiate Occupational Therapy Services for bathing, dressing, grooming, toileting, eating, transfer training. DISCHARGE RECOMMENDATIONS OT recommends that pt return home with HH services- pt is not receptive to HH services at this time. TREATMENT TIME/MINUTES/CODES 96872, 20 minutes (07:40) NAYELY Marcano/[facility]
[2020-04-20] MEDS: guaiFENesin 600 MG TABCR PO (09:16)
[2020-04-20] MEDS: Calcium 600mg/Vit D 200U TAB 1 TAB PO (09:16)
[2020-04-20] MEDS: Escitalopram 10 MG TAB PO (09:17)
[2020-04-20] MEDS: Esomeprazole 40 MG CAPCR PO (09:17)
[2020-04-20] MEDS: predniSONE 20 MG TAB 60 MG PO (09:17)
[2020-04-20] MEDS: Dronabinol 2.5 MG CAP 5 MG PO (09:18)
[2020-04-20] MEDS: Aspirin 81 MG CHEW PO (09:18)
[2020-04-20] MEDS: Folic Acid 1 MG TAB PO (09:18)
[2020-04-20] MEDS: Fluticasone NASAL SPRAY 16 GM BTL NS (09:26)
--- NOTE | 2020-04-20 10:15 | DSE_ITS ---
Date of service: 04/20/20 Time of Service: 10:15 DS: Diagnosis Discharge Diagnosis (1) CAP (community acquired pneumonia): Status: Acute (2) Breast cancer metastasized to bone: Status: Acute (3) Hypomagnesemia: Status: Acute (4) Essential hypertension: Status: Chronic Discharge Plan Disposition Patient Disposition: HOME Condition: Serious Discharge Details Chief Complaint: GenMedical Clinical Impression: Back pain, Nausea, Hypomagnesemia, Acute hyponatremia Reason For Visit: CAP,METASTATIC CANCER Admit Date/Time: 04/18/20 15:56 Admit Provider: Capo Le Attending Provider: Capo Le Primary Care Provider: Lyly Ramos ED Provider: Fredrick Connolly [facility] Course Hospital Course: This is a 69 y.o female with Breast cancer metastasized to the bone presents to the emergency department with severe back and side pain progressively getting worse to the point that she was unable to get out of bed. Labs in the ED reveal sodium of 125, Mag 1.5, and WBC of 15.7. Imaging with RUL infilitrate which may represent pneumonia, CT of thoracic and lumbar spine osseous metastatic disease, LLL pulmonary mass, and t7 and t4 neural foraminal stenosis. She was admitted under hospitalist services for further management. Rocephin and doxycycline started for CAP. She was placed on a steroid burst and fentanyl patch for metastatic bone pain which was very effective. Her respiratory status remained stable, oxygenating well on room air. Her cough improved. she is eating and drinking but appetite has been poor for several months. she has been hemodynamically stable and afebrile. she has a follow up appointment with pcp on Saturday. Case and discharge plan discussed with Dr. Le who is in agreement Home Meds and New Rx's Prescriptions: New prednisone 20 mg Tablet 60 mg PO DAILY Qty: 21 RF: 0 doxycycline hyclate 100 mg capsule 100 mg PO BID Qty: 10 RF: 0 cefpodoxime 200 mg tablet 200 mg PO BID Qty: 10 RF: 0 fentanyl 12 mcg/hr Patch 72 Hour 12 mcg transdermal Q72H Qty: 2 RF: 0 Continued fluticasone propionate 50 mcg/actuation spray,suspension 2 spray NS DAILY Qty: 9.9 RF: 6 zolpidem 5 mg tablet 5 mg PO QHS PRN (Reason: sleep) Qty: 30 RF: 1 letrozole 2.5 mg tablet 2.5 mg PO HS RF: 0 tramadol 50 mg tablet 50 mg PO TID MDD 3 pills PRN (Reason: pain) Qty: 30 RF: 0 folic acid 1 mg tablet 1 mg PO DAILY Qty: 90 RF: 4 ondansetron 8 mg tablet,disintegrating 8 mg PO Q6H PRN (Reason: nausea and vomiting) Qty: 100 RF: 2 esomeprazole magnesium 40 mg capsule,delayed release(DR/EC) 40 mg PO BID Qty: 60 RF: 3 calcium carbonate-vitamin D3 1 EACH tablet 1 ea PO BID RF: 0 losartan-hydrochlorothiazide 100-25 mg tablet 1 tab PO DAILY Qty: 90 RF: 3 polyethylene glycol 3350 [Miralax] 17 gram powder in packet 17 gm PO DAILY PRN (Reason: constipation) Qty: 100 RF: 4 dronabinol 5 mg capsule 5 mg PO BID Qty: 60 RF: 0 lorazepam 1 mg tablet 1 mg PO QID PRN (Reason: anxiety) Qty: 60 RF: 1 escitalopram oxalate 10 mg tablet 10 mg PO DAILY Qty: 90 RF: 4 aspirin 81 mg Tablet,Chewable 81 mg PO BID RF: 0 Discharge Instructions Instructions: Community Acquired Pneumonia (DC) Additional Instructions: Please complete course of antibiotics as prescribed. You will need 5 more days to complete a 7-day course. Please drink at least 6 to 8 glasses of water daily to stay well-hydrated. Taper your prednisone taking 3 tabs daily for 3 days then 2 tabs daily for 3 days then 1 tab daily for 3 days then half tab daily for 3 days then stop. Please take with food. Stand Alone Forms: Nursing Discharge Form Referrals: Lyly Ramos MD, [place] [Primary Care Provider] - 04/25/20 11:00 am (keep scheduled appointment for April 25) Activity:: Activity as Tolerated Equipment/Supplies:: No Equipment Needed Diet:: As Tolerated Discharge Orders Discharge Orders: Discharge Order (Routine); Ordered 04/20/20 Ordered By: Dang Canela DS: Summary Status at Discharge Functional status at discharge: independent ambulation Overall status at discharge: patient is progressing back to baseline Mental Status: mental status grossly normal Speech and Movement: speech and movement normal Mood: congruent mood Affect: normal affect Exam Const General: cooperative, comfortable and no acute distress Nutritional Appearance: overweight Orientation: alert, awake and oriented x3 HENMT Head: normal to inspection, normocephalic and atraumatic Mouth: moist mucous membranes abnormal (oral mucosa dry) Resp Effort & Inspection: normal respiratory effort Auscultation: clear to auscultation bilaterally Cardio Rate: regular rate Rhythm: regular rhythm GI Inspection: normal to inspection Palpation: soft Auscultation: normal bowel sounds Skin Rashes: rashes noted (anterior chest wall, red raised, not itchy) Neuro General: patient alert, patient awake and patient oriented x3 Cranial Nerves: CN's II-XI intact bilaterally Cognition: normal cognition Speech: speech normal Gait: normal gait Extrem General: normal to inspection and full ROM Psych Mental Status: mental status grossly normal Speech and Movement: speech and movement normal Mood: congruent mood Affect: normal affect DS: Data Vitals/I&O Vitals and I&O: Vital Signs Temperature 36.5 C 04/20/20 07:59 Temperature Source Tympanic 04/20/20 07:59 Pulse 60 04/20/20 07:59 Pulse Rhythm Regular 04/19/20 20:30 Respiratory Rate 16 04/20/20 07:59 Respiratory Effort 04/19/20 20:30 Respiratory Depth Normal 04/19/20 20:30 Respiratory Pattern Normal 04/19/20 20:30 Blood Pressure 152/75 H 04/20/20 07:59 Blood Pressure Position Supine 04/18/20 13:09 Pulse Oximetry 94 L 04/20/20 07:59 Oxygen Delivery Method Room Air 04/20/20 07:59 Oxygen Flow Rate 0 04/20/20 07:59 Pain Level 3 04/20/20 07:59 Intake & Output 04/19/20 04/19/20 04/20/20 11:59 23:59 11:59 Intake Total 2300 / 3655 1355 / 3655 250 / 250 Output Total 900 / 1600 700 / 1600 1200 / 1200 Balance 1400 / 5 655 / 2055 -950 / -950 Intake: IV 2000 / 2865 865 / 2865 Oral 300 / 790 490 / 790 250 / 250 Output: Urine 900 / 1600 700 / 1600 1200 / 1200 Other: Urine Color Yellow Yellow Yellow Urine Appearance Clear Clear Clear Urine Odor Normal Voiding Methods Bedside Commode Toilet Toilet Data Completed and Pending Labs on day of discharge: Labs from last 24 hours 04/20/20 04/20/20 04/18/20 07:00 07:00 18:30 WBC 12.18 H RBC 3.84 L Hgb 11.0 L Hct 33.0 L MCV 85.9 MCH 28.6 MCHC 33.3 RDW 13.3 Plt Count 326 MPV 9.7 Immature Gran % 0.5 Neutrophils % 89.5 Lymphocytes % 4.2 Monocytes % 5.8 Eosinophils % 0.0 Basophils % 0.0 Absolute Neutrophils 10.90 H Absolute Lymphocytes 0.51 L Absolute Monocytes 0.71 H Absolute Eosinophils 0.00 Absolute Basophils 0.00 Sodium 128 L Potassium 4.5 Chloride 94 L Carbon Dioxide 27.3 Anion Gap 6.7 BUN 15 Creatinine 0.83 Estimated GFR/1.73 m2 >= 60.00 Glucose 145 H Calcium 9.5 COVID-19 PCR Negative Nasopharyn COVID-19 PCR Not Applicable Ref Test Perform Site [facility] 04/19/20 07:35 Sputum Sputum Culture - Pending Preliminary micro results at discharge 04/18/20 16:42 Blood Culture - Preliminary Blood NO GROWTH 24 HOURS 04/18/20 16:17 Blood Culture - Preliminary Blood NO GROWTH 24 HOURS 04/19/20 07:35 Sputum Culture - Pending Sputum [facility] Medical History Adopted (Chronic) Chest discomfort (Acute) r/t to pt. lung cancer Chronic pain of left knee (Chronic 04/11/16) She sees Dr. Gee for this. Colon polyp (Chronic 05/09/14) 04/23/14 tubular adenoma x 2 08/2017 tubular adenoma x 8 Denial as mental defense mechanism (Chronic) helps her cope; she is self-aware of her denial Ear pain, left (Chronic) ? 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) Metastatic cancer to spine (Acute) Neck discomfort (Acute) Neck pain (Chronic) Neoplasm of breast Otitis externa (Acute) Palliative care patient (Acute) Phlebitis (Resolved 02/19/13) Seasonal allergies (Acute) Seborrheic keratosis (Acute) Tubular adenoma Tubular adenoma (Chronic 08/12/17) Varicose veins of lower extremity Varicose veins of lower extremity (Chronic) h/o phlebitis Weight loss, non-intentional (Acute) Surgical History Abdominal hysterectomy BSO 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 Granddaughter No problems noted. Social History Smoking/Tobacco Use Status: Former Tobacco Use Quit Date: 10/07/84 Tobacco: How many years used: 20 Second Hand Exposure: Yes Alcohol Intake: former Drug use: Never Substance use type: does not use Counseling given: No Counseling provided: none Adopted: Yes Caregiver/Support person: Yes Household members: spouse Housing: house Number of Children: 1 number of grandchildren: 2 Communication Needs: Corrective Lenses Education Level: high school Do you need help understanding health information?: Often Pets and animals: Yes (Selam Hair cats x 2) Pets and animals: cat(s) Current gender identity: female What is your relationship status?: How often do you talk on the phone with friends or family?: once per week How often do you get together with friends or relatives?: once per week How often do you attend nondenominational or jehovah's witness services?: decline to answer Do you belong to any clubs or organized social groups?: no Panel score (0-1 are the most socially isolated patients): 1 What type of physical activity do you participate in: walking, occasional exercise and sedentary lifestyle Duration: < 15 minutes/day Frequency: 1-2 times per week Keli/Buddhist: Jew Special keli needs: No Seatbelt use: always Drive intox or ride w/intox new car 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 They are very happy. They love to go for long car rides together. Some estrangement from daughter, unclear.
--- NOTE | 2020-04-20 10:56 | PDOC.CMDIS ---
- If Service Date Differs Date of service: 04/20/20 Time of Service: 10:56 LACE Index Scoring Tool - Questions: Length of Stay (in days): 2 Acuity (Admit via E.D.?): Yes Comorbidities: Any Tumor E.D. Visits: 3 - Answers: Total Score: 10 Risk of Readmission: High Risk Care Management Discharge Reason for Hospitalization: Breast Cancer, with metastic disease to bone Discharge Plan: Sindi will be discharged home today she declines home health services at this time. She states that she and her spouse talked it over and her spouse wants to wait. She would like to continue to follow up palliative care, and is scheduled to see Dr. Ramos on Saturday. Sindi feels that she is ready for discharge and her spouse will pick her up and return her home. Patient/Family Education Needs: Discharge education, limitation and follow up plan of care including as me three and self management.
[2020-04-20] MEDS: Polyethylene Glycol 3350 17 GM PACKET PO (12:04)
--- NOTE | 2020-04-21 07:26 | OT.INDS ---
Date of service: 04/21/20 Time of Service: 07:26 Occupational Therapy Notes Occupational Therapy Inpatient Discharge Summary Date: 04/21/20 for 04/20/20 Dates of Service: 04/20/20 Referring Doctor:Dang Canela NP OT Orders: Non-Urgent Precautions: Fall, Standard, Full This document serves as a summary of care, no skilled OT services for provided for this discharge summary PATIENT PROFILE/ADMITTING DIAGNOSIS: Pt is a 69 year old female who presented to the ER on 04/18/20 with a dx of back pain, nausea, hypomagnesemia, acute hyponatremia and CAP, breast cancer matastesized to the bone, HTN. Past Medical History- Medical History Adopted (Chronic) Chest discomfort (Acute) r/t to pt. lung cancer Chronic pain of left knee (Chronic 04/11/16) She sees Dr. Gee for this. Colon polyp (Chronic 05/09/14) 04/23/14 tubular adenoma x 2 08/2017 tubular adenoma x 8 Denial as mental defense mechanism (Chronic) helps her cope; she is self-aware of her denial Ear pain, left (Chronic) ? 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) Metastatic cancer to spine (Acute) Neck discomfort (Acute) Neck pain (Chronic) Neoplasm of breast Otitis externa (Acute) Palliative care patient (Acute) Phlebitis (Resolved 02/19/13) Seasonal allergies (Acute) Seborrheic keratosis (Acute) Tubular adenoma Tubular adenoma (Chronic 08/12/17) Varicose veins of lower extremity Varicose veins of lower extremity (Chronic) h/o phlebitis Weight loss, non-intentional (Acute) Surgical History Abdominal hysterectomy BSO 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; DCIS; lobular CA in situ Colonoscopy - MAC (08/12/17) EGD - MAC (08/30/14) History of biopsy (Acute) right clavicle, 11/03/2019, Dr Quiñones Social History/Home Situation: Pt states that she lives in a private home with her . She utilizes a quad cane at baseline due to dizziness from her medications. She has one step to enter and a small lip on the top part of her floor. She states that her always stands behind her to make sure that she doesn't fall. She states that she is (I) with dressing, bathing in a tub shower and she utilizes a shower seat and grab bars. She has a raised toilet to help with getting on and off the toilet. Her plays the role of the main caregiver and helps with all the lap checker including cooking, laundry which is located in the basement, grocery shopping. Equipment owned/DME: shower seat, grab bars, cane SUBJECTIVE:NT OBJECTIVE: ROM: RUE AROM WFL, (R) shoulder limited by 10* due to humerus fx from years ago L UE AROM WFL STRENGTH: RUE Shoulder flexion 4/5, bicep 4-/5, tricep 4-/5, oxygen equipment technician is symmetrical and strong LUE Shoulder flexion 4+/5, bicep 4-/5, tricep 4+/5, oxygen equipment technician is symmetrical and strong *Pt is (L) hand dominant. SENSATION: Intact (B) UE FUNCTIONAL MOBILITY/ADLS: Transfers with cane Supine-sit (I) Sit-Stand SBA Stand-sit SBA BATHING Pt denies, she reports that she gets herself bathed in the bathroom each morning by herself. DRESSING Sitting on side of the bed Dressing UE NT pt denies Dressing LE Max (A) don and doffing (B) socks as pt states that she has bigger feet and does not like the socks. BALANCE: Static sitting Normal Dynamic Sitting Normal Static Standing Good Dynamic Standing Good ASSESSMENT: Patient is a 69-year-old female referred to occupational therapy services with diagnosis of back pain, nausea, hypomagnesemia, acute hyponatremia and CAP, breast cancer matastesized to the bone, HTN. Pt was discharged post OT eval. GOALS- not met, pt was seen for OT consult only. 1. Transfers with cane 2. Dressing- (I) in seated position 3. Bathing- (I) in seated position 4. Toileting- on toilet (I) 5. Eating- (I) PLAN OF CARE/TREATMENT PLAN: Discharge from skilled OT services, pt was discharged home on 04/20/20 DISCHARGE RECOMMENDATIONS OT recommends that pt return home with HH services- pt is not receptive to HH services at this time. TREATMENT TIME/MINUTES/CODES N/A Mary Quiroga OTR/L [facility]
--- NOTE | 2020-04-21 08:30 | PT.INNT ---
Date of service: 04/21/20 Time of Service: 08:00 PT Notes Visit Reasons: CAP,METASTATIC CANCER Patient with breast carcinoma with bone matastasis referred for PT services on 04/19/2020 at 17:23 PM however patient was discharged from this hospital on 04/20/2020 with no skilled PT services provided.
== END 2020-04-20 14:20 | disposition home or self-care (01) | DRG 194 ==
LOC: ER 16:05 → MS 17:24
PROVIDERS: Nurse Practitioner Acute Care; Nurse Practitioner Family; Admitting Provider Internal Medicine; Emergency Provider Student in an Organized Health Care Education/Training Program; PCP Family Medicine; Visit Provider Internal Medicine
DX: C50.919 Malignant neoplasm of unspecified site of unspecified female breast (principal); E83.42 Hypomagnesemia; C78.00 Secondary malignant neoplasm of unspecified lung; I10 Essential (primary) hypertension; J18.9 Pneumonia, unspecified organism; C79.51 Secondary malignant neoplasm of bone; E87.1 Hypo-osmolality and hyponatremia; C77.9 Secondary and unspecified malignant neoplasm of lymph node, unspecified; R53.1 Weakness; M54.9 Dorsalgia, unspecified; R11.2 Nausea with vomiting, unspecified; Z03.818 Encounter for observation for suspected exposure to other biological agents ruled out
CPT/HCPCS: 36415; 80048; 80053; 87040; 93005; 96361; 96365; 96367; 96375; 97165; 99223; 99233; 99239; 99285; U0003; 71046; 72129; 72132; 81003; 81015; 83735; 84484; 85025; 87070; 87086; 87205; 93010; J0696; J1644; J2405; J3475; J3490; J7512

== ENCOUNTER 2020-04-25 02:13 | Outpatient (CLI) | payer MEDICARE, SELFPAY ==
[2020-04-25 13:41] LABS: Abs Immature Grans 0.75 k/cumm (0.0-0.09); HCT 42.2 % (36.0-46.0); HGB 14.1 g/dL (12.0-15.5); Mean Corp. HGB Concentration 33.4 g/dL (32.0-36.0); Mean Corpuscular Hemoglobin 28.9 pg (27.0-33.0); Mean Corpuscular Volume 86.5 fL (80-95); Mean Platelet Volume 9.1 fL (8.0-11.0); Platelet Count 468 x1000/uL (130-400); RBC 4.88 m/cumm (4.00-5.20); RBC Distribution Width 14.2 % (11.7-14.6); White Blood Cell Count 22.11 k/cumm (4.4-10.8)
[2020-04-25 13:55] LABS: ALT 55 U/L (14-59); AST 18 U/L (15-37); Albumin 3.1 g/dL (3.4-5.0); Alkaline Phosphatase 114 U/L (46-116); Anion Gap 6.5 mmol/L (3-11); BUN 38 mg/dL (7-18); Bilirubin, Total 0.4 mg/dL (0.2-1.0); CO2 30.5 mmol/L (21.0-32.0); CREATININE 1.34 mg/dL (0.55-1.02); Calcium 9.6 mg/dL (8.5-10.1); Chloride 91 mmol/L (98-107); Glucose 130 mg/dL (74-106); Potassium 4.6 mmol/L (3.5-5.1); Sodium 128 mmol/L (136-145); Total Protein 7.2 g/dL (6.4-8.2)
[2020-04-25 14:10] LABS: Absolute Lymphocyte Count 0.88 k/cumm (1.2-3.4)
[2020-04-25 14:11] LABS: Absolute Monocyte Count 0.88 k/cumm (0.11-0.7); Diff Comment Manual Differential; Polychromasia Present
== END 2020-04-25 02:33 ==
PROVIDERS: PCP Family Medicine; Visit Provider Family Medicine
DX: E11.9 Type 2 diabetes mellitus without complications (principal); E78.5 Hyperlipidemia, unspecified; R53.83 Other fatigue; R60.0 Localized edema; R63.4 Abnormal weight loss; R91.8 Other nonspecific abnormal finding of lung field; C50.919 Malignant neoplasm of unspecified site of unspecified female breast; C79.51 Secondary malignant neoplasm of bone
CPT/HCPCS: 36415; 80053; 85025

== ENCOUNTER 2020-05-24 12:45 | Emergency (ER) | payer MEDICARE, SELFPAY ==
[2020-05-24] VITALS (16 sets, daily range): BP systolic 121–162; BP diastolic 58–85; PULSE 89–120; RESP 12–25; TEMP 36.4–36.8; O2SAT 83–97
--- NOTE | 2020-05-24 13:23 | W.ED.GENAD ---
Discharge Plan Disposition Patient Disposition: HOME Condition: Stable Discharge Details Chief Complaint: Nausea/Vomit/Diar Clinical Impression: Dry heaves Primary Care Provider: Lyly Ramos ED Provider: Yeison Mccarthy Home Meds and New Rx's Prescriptions: Continued zolpidem 5 mg tablet 5 mg PO QHS PRN (Reason: sleep) Qty: 30 RF: 1 letrozole 2.5 mg tablet 2.5 mg PO HS RF: 0 folic acid 1 mg tablet 1 mg PO DAILY Qty: 90 RF: 4 ibuprofen 200 mg tablet 600 mg PO Q6H PRNRF: 0 fentanyl 12 mcg/hr patch 72 hour 1 patch TD Q72H MDD 12mcg Qty: 10 RF: 0 dronabinol 5 mg capsule 5 mg PO BID Qty: 180 RF: 3 fluticasone propionate 50 mcg/actuation spray,suspension 2 spray NS DAILY Qty: 9.9 RF: 6 ondansetron 8 mg tablet,disintegrating 8 mg PO Q6H PRN (Reason: nausea and vomiting) Qty: 100 RF: 2 calcium carbonate-vitamin D3 1 EACH tablet 1 ea PO BID RF: 0 losartan-hydrochlorothiazide 100-25 mg tablet 1 tab PO DAILY Qty: 90 RF: 3 polyethylene glycol 3350 [Miralax] 17 gram powder in packet 17 gm PO DAILY PRN (Reason: constipation) Qty: 100 RF: 4 escitalopram oxalate 10 mg tablet 10 mg PO DAILY Qty: 90 RF: 4 lorazepam 1 mg tablet 1 mg PO QID PRN (Reason: anxiety) Qty: 60 RF: 5 esomeprazole magnesium 40 mg capsule,delayed release(DR/EC) 40 mg PO BID Qty: 180 RF: 3 prednisone 20 mg tablet See Rx Instructions PO DAILY Qty: 50 RF: 3 aspirin 81 mg Tablet,Chewable 81 mg PO BID RF: 0 Discharge Instructions Instructions: Acute Nausea and Vomiting (ED) Additional Instructions: follow up as scheduled with your oncologist on if you have worsening pain, persistent vomit or feel more ill return to the emergency department Medical Decision Making 69 yo female with hx of metastatic breast cancer and recurrent episodes of dry heaving comes in with another episode this morning and no relief with ativan. States when she dry heaves she has some epigastric pain otherwise denies any pain now and no new pain anywhere, has unchanged back pain in lumbar region. No saddle anesthesia, no focal deficits. Could be multiple different etiologies including med side effect, cancer induced n/v, and sbo. She had imaging done in April and at this time is declining imaging and just wants to feel better, and she has the capacity to make her own decisions. She states she has f/u with her oncologist . Will tx her symptoms and reassess. pt feeling better, would like ibuprofen for her back pain, soft nontender abdomen and states nausea/dry heaving sensation improved. She is requesting d/c as she feels better and will f/u as scheduled with her oncologist. Return precautions given Differential Diagnosis Differential Diagnosis: medication side effect, cancer induced nausea, electrolyte abnormality Medical Records Medical records reviewed: Yes I reviewed the patient's medical records. HPI General Mode of arrival: ambulatory. Date/Time Provider Initiated Documentation: 05/24/20 12:46. Limitations to Documentation: no limitations. Information obtained by: patient. History of Present Illness 69 year old F presents to the emergency department with the chief complaint of nausea/dry heaves, described as moderate, and it has been constant. No relieving factors improve symptom(s), No exacerbating factors reported . Related Data Home Medications Medication Instructions Recorded Confirmed calcium carbonate-vitamin D3 1 ea PO BID 02/19/13 05/24/20 losartan 100 1 tab PO DAILY #90 tab 06/04/19 05/24/20 mg-hydrochlorothiazide 25 mg tablet polyethylene glycol 3350 17 gram 17 gm PO DAILY PRN #100 each 06/26/19 05/24/20 oral powder packet aspirin 81 mg PO BID 11/02/19 05/24/20 zolpidem 5 mg tablet 5 mg PO QHS PRN #30 tab 11/10/19 05/24/20 letrozole 2.5 mg tablet 2.5 mg PO HS 12/21/19 05/24/20 folic acid 1 mg tablet 1 mg PO DAILY #90 tab 01/25/20 05/24/20 ondansetron 8 mg disintegrating 8 mg PO Q6H PRN #100 tab 02/23/20 05/24/20 tablet escitalopram oxalate 10 mg tablet 10 mg PO DAILY #90 tab 03/17/20 05/24/20 lorazepam 1 mg tablet 1 mg PO QID PRN #60 tab 04/25/20 05/24/20 prednisone 20 mg tablet See Rx Instructions PO DAILY #50 04/25/20 05/24/20 tab esomeprazole magnesium 40 mg 40 mg PO BID #180 cap 05/09/20 05/24/20 capsule,delayed release dronabinol 5 mg capsule 5 mg PO BID #180 cap 05/17/20 05/24/20 fentanyl 12 mcg/hr transdermal 1 patch TD Q72H #10 each MDD 12mcg 05/17/20 05/24/20 patch fluticasone propionate 50 2 spray NS DAILY #9.9 gm 05/17/20 05/24/20 mcg/actuation nasal spray,suspension ibuprofen 200 mg tablet 600 mg PO Q6H PRN tab 05/17/20 05/24/20 Previous Rx's Medication Instructions Recorded losartan 100 1 tab PO DAILY #90 tab 06/04/19 mg-hydrochlorothiazide 25 mg tablet polyethylene glycol 3350 17 gram 17 gm PO DAILY PRN #100 each 06/26/19 oral powder packet zolpidem 5 mg tablet 5 mg PO QHS PRN #30 tab 11/10/19 folic acid 1 mg tablet 1 mg PO DAILY #90 tab 01/25/20 ondansetron 8 mg disintegrating 8 mg PO Q6H PRN #100 tab 02/23/20 tablet escitalopram oxalate 10 mg tablet 10 mg PO DAILY #90 tab 03/17/20 lorazepam 1 mg tablet 1 mg PO QID PRN #60 tab 04/25/20 prednisone 20 mg tablet See Rx Instructions PO DAILY #50 04/25/20 tab esomeprazole magnesium 40 mg 40 mg PO BID #180 cap 05/09/20 capsule,delayed release dronabinol 5 mg capsule 5 mg PO BID #180 cap 05/17/20 fentanyl 12 mcg/hr transdermal 1 patch TD Q72H #10 each MDD 12mcg 05/17/20 patch fluticasone propionate 50 2 spray NS DAILY #9.9 gm 05/17/20 mcg/actuation nasal spray,suspension Allergies Allergy/AdvReac Type Severity Reaction Status Date / Time prochlorperazine Allergy Intermediate Agitation Verified 05/24/20 12:56 [From Compazine] meloxicam AdvReac Severe GI UPSET Verified 05/24/20 12:56 atorvastatin AdvReac Intermediate GI Verified 05/24/20 12:56 INTOLERANCE azithromycin AdvReac Intermediate INTOLERANCE Verified 05/24/20 12:56 simvastatin AdvReac Intermediate INTOLERANCE Verified 05/24/20 12:56 lisinopril AdvReac Mild cough Verified 05/24/20 12:56 General Stated Complaint: Nk/Back Pain OSMEL: 3 Review of Systems All systems reviewed & are unremarkable except as noted in HPI and below Constitutional Constitutional: Denies chills and Denies fever(s) ENT Ears, Nose, Mouth, and Throat: Denies change in voice Cardiovascular Cardiovascular: Denies chest pain and Denies dyspnea Respiratory Respiratory: Denies cough and Denies dyspnea Gastrointestinal Gastrointestinal: Denies abdominal pain Genitourinary Genitourinary: Denies dysuria Musculoskeletal Musculoskeletal: Denies joint swelling Psychiatric Psychiatric: Denies depression [facility] Medical History (Updated 05/24/20 @ 14:25 by Yeison Mccarthy MD) Adopted (Chronic) Chest discomfort (Acute) r/t to pt. lung cancer Chronic pain of left knee (Chronic 04/11/16) She sees Dr. Gee for this. Colon polyp (Chronic 05/09/14) 04/23/14 tubular adenoma x 2 08/2017 tubular adenoma x 8 Denial as mental defense mechanism (Chronic) helps her cope; she is self-aware of her denial Discharge planning issues (Inactive) DVT prophylaxis (Inactive) Ear pain, left (Chronic) ? 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 (Acute) Nausea (Inactive) Neck discomfort (Acute) Neck pain (Chronic) Neoplasm of breast Otitis externa (Acute) Palliative care patient (Acute) Phlebitis (Resolved 02/19/13) Seasonal allergies (Acute) Seborrheic keratosis (Acute) Tubular adenoma Tubular adenoma (Chronic 08/12/17) Varicose veins of lower extremity Varicose veins of lower extremity (Chronic) h/o phlebitis Weight loss, non-intentional (Acute) Surgical History Abdominal hysterectomy BSO 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 Granddaughter No problems noted. Social History Smoking/Tobacco Use Status: Former Tobacco Use Quit Date: 10/07/84 Tobacco: How many years used: 20 Second Hand Exposure: Yes Alcohol Intake: former Drug use: Never Substance use type: does not use Counseling given: No Counseling provided: none Adopted: Yes Caregiver/Support person: Yes Household members: spouse Housing: house Number of Children: 1 number of grandchildren: 2 Communication Needs: Corrective Lenses Education Level: high school Do you need help understanding health information?: Often Pets and animals: Yes (Selam Hair cats x 2) Pets and animals: cat(s) Current gender identity: female What is your relationship status?: How often do you talk on the phone with friends or family?: once per week How often do you get together with friends or relatives?: once per week How often do you attend muslim or anglican services?: decline to answer Do you belong to any clubs or organized social groups?: no Panel score (0-1 are the most socially isolated patients): 1 What type of physical activity do you participate in: walking, occasional exercise and sedentary lifestyle Duration: < 15 minutes/day Frequency: 1-2 times per week Keli/Yazdanism: Restorationist Special keli needs: No Seatbelt use: always Drive intox or ride w/intox driver merchandiser: No Fire extinguisher in home: Yes Do you feel safe at home: Yes Do you feel safe in your relationship?: Yes Additional Social history: She and her will celebrate their 50th anniversary in Jun 2020. 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 They are very happy. They love to go for long car rides together. Some estrangement from daughter, unclear. Exam Const General: no acute distress Orientation: alert HENMT Head: normal to inspection Ears: external ears normal General nose exam: external nose normal Mouth: moist mucous membranes Eyes General: appearance normal, both eyes and all related structures Neck Neck: normal visual inspection Resp Effort & Inspection: normal respiratory effort and able to speak in complete sentences Cardio Rate: regular rate GI Palpation: soft and nontender Skin General skin exam: no rashes or lesions noted Neuro General: patient alert and patient oriented x3 Extrem General: normal to inspection Psych Mental Status: mental status grossly normal Course Vital Signs Vital signs: Vital Signs Temperature 36.4 C L 05/24/20 12:50 Pulse 120 H 05/24/20 12:50 Respiratory Rate 25 H 05/24/20 12:50 Blood Pressure 162/85 H 05/24/20 12:50 Pulse Oximetry 96 05/24/20 12:50 Temperature 36.4 C L 05/24/20 12:50 Temperature Source Skin 05/24/20 12:50 Pulse 120 H 05/24/20 12:50 Respiratory Rate 25 H 05/24/20 12:50 Respiratory Effort Non-Labored 05/24/20 12:54 Blood Pressure 162/85 H 05/24/20 12:50 Blood Pressure Position Sitting 05/24/20 12:50 Pulse Oximetry 96 05/24/20 12:50 Oxygen Delivery Method Room Air 05/24/20 12:50 Oxygen Flow Rate 0 05/24/20 12:50 Pain Level 8 05/24/20 12:50
[2020-05-24] MEDS: Normal Saline Flush 10 ML SYR IVP (13:26)
[2020-05-24] MEDS: Pantoprazole 40 MG VIAL IVP (13:26)
[2020-05-24] MEDS: Normal Saline 1,000 ML 1000 ML IV (13:26)
[2020-05-24] MEDS: Ondansetron 4 MG/2 ML VIAL IVP (13:26)
[2020-05-24 13:28] LABS: Abs Immature Grans 0.34 10^3/uL (0.0-0.06); Absolute Eosinophil Count 0.01 10^3/uL (0.0-0.7); Absolute Lymphocyte Count 0.42 10^3/uL (1.2-3.4); Absolute Monocyte Count 0.46 10^3/uL (0.1-0.8); Basophils % 0.3; Eosinophils % 0.1; HCT 40.3 % (36.0-46.0); HGB 13.2 g/dL (11.2-15.7); Immature Grans % 2.9; Lymphocytes % 3.6; MCHC 32.8 % (32.0-36.0); MCV 88.6 fL (80-95); MPV 9.3 fL (8.0-11.0); Neutrophils % 89.1; Nucleated RBC 0 %; Platelet Count 175 10^3/uL (130-400); RBC 4.55 10^6/uL (3.93-5.22); RDW 15.6 % (11.7-14.6); RDW-SD 49.2 fL; WBC 11.53 10^3/uL (4.4-10.8)
[2020-05-24 13:32] LABS: Absolute Basophil Count 0.03 10^3/uL (0.0-0.2); Absolute Neutrophil Count 10.27 10^3/uL (1.2-6.7)
[2020-05-24 13:50] LABS: ALT 52 U/L (14-59); AST 24 U/L (15-37); Albumin 2.8 g/dL (3.4-5.0); Alkaline Phosphatase 134 U/L (46-116); Anion Gap 10.3 mmol/L (3-11); BUN 21 mg/dL (7-18); Bilirubin, Total 0.6 mg/dL (0.2-1.0); CO2 27.7 mmol/L (21.0-32.0); CREATININE 0.92 mg/dL (0.55-1.02); Calcium 9.2 mg/dL (8.5-10.1); Chloride 98 mmol/L (98-107); Glucose 160 mg/dL (74-106); Magnesium 1.4 mg/dL (1.8-2.4); Sodium 136 mmol/L (136-145); Total Protein 6.3 g/dL (6.4-8.2)
[2020-05-24 14:04] LABS: Lipase 50 U/L (73-393)
[2020-05-24] MEDS: Ibuprofen 600 MG TAB PO (14:36)
== END 2020-05-24 14:50 | disposition home or self-care (01) ==
PROVIDERS: Emergency Provider Emergency Medicine; PCP Family Medicine
DX: R11.2 Nausea with vomiting, unspecified (principal); R10.13 Epigastric pain; M54.5 Low back pain; C50.912 Malignant neoplasm of unspecified site of left female breast; C79.51 Secondary malignant neoplasm of bone; I10 Essential (primary) hypertension
CPT/HCPCS: 36415; 80053; 83690; 96361; 96374; 96375; 99285; 83735; 85025; 99284; J2405

== ENCOUNTER 2020-06-03 16:19 | Emergency (ER) | payer MEDICARE, SELFPAY ==
[2020-06-03] VITALS (39 sets, daily range): BP systolic 91–131; BP diastolic 41–92; PULSE 92–144; RESP 22–40; TEMP 36.2–36.5; O2SAT 90–99
--- NOTE | 2020-06-03 16:15 | RT.EKG_ITS ---
APPROVED REPORT Exam: Resting ECG Patient Location: E HR:131 bpm ECG Measurements Heart Rate 131 AXIS DE 133 P 46 QRSd 84 QRS -53 QT 308 T 113 QTc 454 Conclusion Sinus tachycardia...rate> 99 Multiple ventricular premature complexes...V complexes w/ short R-R intervls Probable left atrial enlargement...P >50mS, <-0.10mV V1 Left anterior fascicular block...axis(240,-40), init forces inf LVH with secondary repolarization abnormality...multi-LVH criteria, abnrm ST-T
--- NOTE | 2020-06-03 16:30 | DI.CT_ITS ---
EXAM: CT CHEST PE CTA CLINICAL HISTORY: shortness of breath, tachcardia. TECHNIQUE: Imaging Protocol: Axial CT angiography was performed with multi-slice acquisition and mu lti-planar and/or 3D reconstructions. CONTRAST MATERIAL: Intravenous: Omnipaque 350 Contrast volume:100 mL COMPARISON: CT CT NECK CHEST ABD PEL W from 11/02/2019 FINDINGS: Pulmonary Arteries: Pulmonary emboli are seen in the distal main right pulmonary artery and branches of the pulmonary arteries to the right upper, middle and lower lobes. No definite left pulmonary emb estrellita are identified. Tracheobronchial tree: Please see the parenchyma section. Mediastinum and Laetha: No dominant adenopathy or fluid collection. Pulmonary parenchyma: There is a stable masslike area in the left perihilar region causing compressio n of the airway and vascularity in this region. There are areas of consolidation seen in the posteri or aspect of the right upper lobe and the posterior aspect of the right lower lobe. These may repres ent infiltrates but infarcts cannot be excluded. Pleura: No effusion or pneumothorax. Heart: Mild cardiomegaly. Mild coronary artery calcification. Prominence of the right heart suspici ous for right heart strain. Stable pericardial effusion. Aorta: Thoracic aorta non-dilated. Atherosclerosis. No evidence of dissection. Upper abdomen: Unremarkable. Bones: Mixed lytic and sclerotic vertebral lesions suspicious for metastatic disease.Mild compression deformities at T7 and T4 and T8. Sclerotic lesion involving the right 4th rib anteriorly and the le ft 5th rib anterior laterally suspicious for metastasis. Soft tissues: Stable soft tissue thickening and skin thickening over the right anterior chest at the level of the thyroid gland. IMPRESSION: 1. Right-sided pulmonary emboli. 2. Findings suspicious for right heart strain. 3. Areas of consolidation in the right upper and right lower lobes which may represent infiltrates bu t infarcts cannot be excluded. 4. Stable left perihilar mass. 5. Mixed sclerotic and lytic lesions involving the thoracic spine and rib suspicious for metastatic d isease 6. Small pericardial effusion. RADIATION DOSE DELIVERED: 506.75mGy.cm Total DLP DATA REPOSITORY: All CT scans at this facility are submitted to the National Radiology Data Registry (NRDR) Dose Index Registry (DIR) with the [employer] (A[employer]). RADIATION OPTIMIZATION: All CT scans at this facility use at least one of these dose optimization te chniques: automated exposure control; mA and/or kV adjustment per patient size (includes targeted exa ms where dose is matched to clinical indication); or iterative reconstruction.
--- NOTE | 2020-06-03 16:45 | ED.GENADUL_ITS ---
Discharge Plan Disposition Patient Disposition: [facility] Condition: Critical Discharge Details Chief Complaint: SOB Clinical Impression: Pulmonary embolism Primary Care Provider: Lyly Ramos ED Provider: Phil Vigil [place] [facility] and New Rx's Prescriptions: No Action zolpidem 5 mg tablet 5 mg PO QHS PRN (Reason: sleep) Qty: 30 RF: 1 folic acid 1 mg tablet 1 mg PO DAILY Qty: 90 RF: 4 ibuprofen 200 mg tablet 600 mg PO Q6H PRNRF: 0 fluticasone propionate 50 mcg/actuation spray,suspension 2 spray NS DAILY Qty: 9.9 RF: 6 ondansetron 8 mg tablet,disintegrating 8 mg PO Q6H PRN (Reason: nausea and vomiting) Qty: 100 RF: 2 polyethylene glycol 3350 [Miralax] 17 gram powder in packet 17 gm PO DAILY PRN (Reason: constipation) Qty: 100 RF: 4 lorazepam 1 mg tablet 1 mg PO QID PRN (Reason: anxiety) Qty: 60 RF: 5 esomeprazole magnesium 40 mg capsule,delayed release(DR/EC) 40 mg PO BID Qty: 180 RF: 3 dronabinol 5 mg capsule 5 mg PO BID Qty: 180 RF: 3 fentanyl 12 mcg/hr patch 72 hour 1 patch TD Q72H MDD 12mcg Qty: 10 RF: 0 prednisone 20 mg tablet See Rx Instructions PO DAILY Qty: 50 RF: 3 aspirin 81 mg Tablet,Chewable 81 mg PO BID RF: 0 Discharge Data Discharge Date/Time-TO BE ENTERED AT DEPARTURE: 06/03/20 21:50 Medical Decision Making <Fredrick Connolly MD - Last Filed: 06/04/20 09:27> 1650 --- 69-year-old female with multiple medical problems including history of breast cancer with mets to bone and lung, here with worsening shortness of francisco th. Patient arrives by EMS. She is tachycardic. She was hypoxic in the field and is now requiring nonrebreather oxygen. Patient does have prior history of DVT. She is not currently anticoagulated. I am concerned about acute life-threatening pulmonary embolism. Consider pericardial effusion. Consider ACS and acute CHF. Screening ECG was reviewed and interpreted by me: Sinus tachycardia 131 bpm, significant artifact is noted. Left axis. Please see report. Patient has COLST form on file: I reviewed COLST form which is dated 05/17/2020 and notes DNR/DNI. --Labs reviewed and troponin is elevated 1.44. Leukocytosis noted 21,000. Creatinine elevated at 1.32 with a GFR of 39. 19:35 --radiology called to report CT chest finding right pulmonary artery pulmonary embolism with RV dilatation concerning for right heart strain, left lung cancer noted. Patient was reassessed multiple times. She remains hemodynamically unstable with a heart rate of 123. BP is improved to now MAP 102. Will be starting heparin bolus and infusion. I updated family. I called [facility] transfer center to request emergent transfer. Awaiting callback. 2025??I received call back from [facility] erp consultant asphalt coater, Dr. Castro, who notes patient will be excepted by Dr. Delarosa pending CT head. He is recommending CT head at this time prior to transfer in case pre-admit and consideration for worsening condition and need for thrombolytic. Care to be signed out to Dr. Vigil pending CT head and transfer. Lab Data Lab results reviewed: Yes I reviewed the patient's lab results. Labs: Laboratory Tests Range/Units 06/03/20 06/03/20 06/03/20 16:46 16:46 16:46 WBC (4.4-10.8) 10^3/uL 21.30 H RBC (3.93-5.22) 10^6/uL 4.74 Hgb (11.2-15.7) g/dL 13.9 Hct (36.0-46.0) % 42.9 MCV (80-95) fL 90.5 MCH (27.0-33.0) pg 29.3 MCHC (32.0-36.0) % 32.4 RDW (11.7-14.6) % 17.1 H Plt Count (130-400) 10^3/uL 255 MPV (8.0-11.0) fL 10.2 Immature Gran % See Differential Neutrophils % 91.0 Band Neutrophils % 1 Lymphocytes % 4.0 Monocytes % 4.0 Eosinophils % 0.0 Basophils % 0.0 Nucleated RBC % % 0 Absolute Neutrophils (1.2-6.7) 10^3/uL 19.60 H Absolute Lymphocytes (1.2-3.4) 10^3/uL 0.85 L Absolute Monocytes (0.1-0.8) 10^3/uL 0.85 H Absolute Eosinophils (0.0-0.7) 10^3/uL 0.00 Absolute Basophils (0.0-0.2) 10^3/uL 0.00 RBC Morphology See below Polychromasia Present Anisocytosis 1+ APTT (21.0-31.4) sec 21.2 Sodium (136-145) mmol/L 132 L Potassium (3.5-5.1) mmol/L 4.4 Chloride (98-107) mmol/L 93 L Carbon Dioxide (21.0-32.0) mmol/L 28.3 Anion Gap (3-11) mmol/L 10.7 BUN (7-18) mg/dL 21 H Creatinine (0.55-1.02) mg/dL 1.32 H Estimated GFR/1.73 m2 (mL/min/1.73m2) 39.79 Glucose (74-106) mg/dL 185 H Calcium (8.5-10.1) mg/dL 10.0 Total Bilirubin (0.2-1.0) mg/dL 0.4 AST (15-37) U/L 20 ALT (14-59) U/L 39 Alkaline Phosphatase (46-116) U/L 129 H Troponin I (<0.06) ng/mL 1.44 H* NT-Pro-B Natriuret Pep (<300) pg/mL 1276 H Total Protein (6.4-8.2) g/dL 7.0 Albumin (3.4-5.0) g/dL 3.1 L <Phil Vigil MD - Last Filed: 06/03/20 22:31> Patient had presented to ED with shortness of breath and found to have massive PE. She has been accepted to [facility] for management. Head CT requested prior to transfer. This was obtained and is negative for any acute pathology. Patient has remained tachycardic but saturations and blood pressure have been fine. Has been having some issues with nausea despite Zofran. Typically takes Ativan at night and was requesting dose prior to transfer. This was given. We did contact [facility] but they are unavailable for transfer. Patient will therefore go with medic by ground. Head CT results and patient condition discussed with Dr. Castro at [facility] at time of patient leaving our ED. <TANESHA Stewart - Last Filed: 06/04/20 07:52> 06/04/2020 0752: lab called, COVID screening negative, called [facility] and passed along information. HPI <Fredrick Connolly MD - Last Filed: 06/04/20 09:27> General Mode of arrival: ambulatory . Date/Time Provider Initiated Documentation: 06/03/20 16:31 . Limitations to Documentation: no limitations . Information obtained by: patient . HPI Narrative: 69-year-old female with history of metastatic breast cancer, mets to bone and lung, prior history of DVT, not currently anticoagulated, here with chief complaint of shortness of breath. Patient notes she is had progressive shortness of breath over the past few weeks. Symptoms much worse today. Worse with any exertion. She notes she feels like she has trouble getting air in. No associated cough. No associated fever. No chest pain. She does have associated nausea and dry heaving. Maira ent arrives by EMS. Acuity of condition limits HPI and review of systems. Related Data Home Medications Medication Instructions Recorded Confirmed polyethylene glycol 3350 17 gram 17 gm PO DAILY PRN #100 each 06/26/19 06/03/20 oral powder packet aspirin 81 mg PO BID 11/02/19 06/03/20 zolpidem 5 mg tablet 5 mg PO QHS PRN #30 tab 11/10/19 06/03/20 folic acid 1 mg tablet 1 mg PO DAILY #90 tab 01/25/20 06/03/20 ondansetron 8 mg disintegrating 8 mg PO Q6H PRN #100 tab 02/23/20 06/03/20 tablet lorazepam 1 mg tablet 1 mg PO QID PRN #60 tab 04/25/20 06/03/20 prednisone 20 mg tablet See Rx Instructions PO DAILY #50 04/25/20 06/03/20 tab esomeprazole magnesium 40 mg 40 mg PO BID #180 cap 05/09/20 06/03/20 capsule,delayed release fluticasone propionate 50 2 spray NS DAILY #9.9 gm 05/17/20 06/03/20 mcg/actuation nasal spray,suspension ibuprofen 200 mg tablet 600 mg PO Q6H PRN tab 05/17/20 06/03/20 dronabinol 5 mg capsule 5 mg PO BID #180 cap 05/26/20 06/03/20 fentanyl 12 mcg/hr transdermal 1 patch TD Q72H #10 each MDD 12g 05/26/20 06/03/20 patch Previous Rx's Medication Instructions Recorded polyethylene glycol 3350 17 gram 17 gm PO DAILY PRN #100 each 06/26/19 oral powder packet zolpidem 5 mg tablet 5 mg PO QHS PRN #30 tab 11/10/19 folic acid 1 mg tablet 1 mg PO DAILY #90 tab 01/25/20 ondansetron 8 mg disintegrating 8 mg PO Q6H PRN #100 tab 02/23/20 tablet lorazepam 1 mg tablet 1 mg PO QID PRN #60 tab 04/25/20 prednisone 20 mg tablet See Rx Instructions PO DAILY #50 04/25/20 tab esomeprazole magnesium 40 mg 40 mg PO BID #180 cap 05/09/20 capsule,delayed release fluticasone propionate 50 2 spray NS DAILY #9.9 gm 05/17/20 mcg/actuation nasal spray,suspension dronabinol 5 mg capsule 5 mg PO BID #180 cap 05/26/20 fentanyl 12 mcg/hr transdermal 1 patch TD Q72H #10 each MDD 12mcg 05/26/20 patch Allergies Allergy/AdvReac Type Severity Reaction Status Date / Time prochlorperazine Allergy Intermediate Agitation Verified 06/03/20 16:42 [From Compazine] meloxicam AdvReac Severe GI UPSET Verified 06/03/20 16:42 atorvastatin AdvReac Intermediate GI Verified 06/03/20 16:42 INTOLERANCE azithromycin AdvReac Intermediate INTOLERANCE Verified 06/03/20 16:42 simvastatin AdvReac Intermediate INTOLERANCE Verified 06/03/20 16:42 lisinopril AdvReac Mild cough Verified 06/03/20 16:42 General Stated Complaint: SOB OSMEL: 2 Review of Systems <Fredrick Connolly MD - Last Filed: 06/04/20 09:27> Narrative: Limited secondary to acuity of condition Constitutional Constitutional: Denies fever(s) Cardiovascular Cardiovascular: Denies chest pain Respiratory Respiratory: Reports as per HPI Gastrointestinal Gastrointestinal: Denies abdominal pain PFSH <Fredrick Connolly MD - Last Filed: 06/04/20 09:27> Medical History Adopted (Chronic) Chest discomfort (Acute) r/t to pt. lung cancer Chronic pain of left knee (Chronic 04/11/16) She sees Dr. Gee for this. Colon polyp (Chronic 05/09/14) 04/23/14 tubular adenoma x 2 08/2017 tubular adenoma x 8 Denial as mental defense mechanism (Chronic) helps her cope; she is self-aware of her denial Discharge planning issues (Inactive) DVT prophylaxis (Inactive) Ear pain, left (Chronic) ? 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 (Acute) Nausea (Inactive) Neck discomfort (Acute) Neck pain (Chronic) Neoplasm of breast Otitis externa (Acute) Palliative care patient (Acute) Phlebitis (Resolved 02/19/13) Seasonal allergies (Acute) Seborrheic keratosis (Acute) Tubular adenoma Tubular adenoma (Chronic 08/12/17) Varicose veins of lower extremity Varicose veins of lower extremity (Chronic) h/o phlebitis Weight loss, non-intentional (Acute) Surgical History Abdominal hysterectomy BSO 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 Granddaughter No problems noted. Social History Smoking/Tobacco Use Status: Former Tobacco Use Quit Date: 10/07/84 Tobacco: How many years used: 20 Second Hand Exposure: Yes Alcohol Intake: former Drug use: Daily Substance use type: marijuana Counseling given: No Counseling provided: none Details: recently started with marijuana edibles. Adopted: Yes Caregiver/Support person: Yes Household members: spouse Housing: house Number of Children: 1 number of grandchildren: 2 Communication Needs: Corrective Lenses Education Level: high school Do you need help understanding health information?: Often Pets and animals: Yes (Selam Hair cats x 2) Pets and animals: cat(s) Current gender identity: female What is your relationship status?: How often do you talk on the phone with friends or family?: once per week How often do you get together with friends or relatives?: once per week How often do you attend hinduism or roman catholic services?: decline to answer Do you belong to any clubs or organized social groups?: no Panel score (0-1 are the most socially isolated patients): 1 What type of physical activity do you participate in: walking, occasional exercise and sedentary lifestyle Duration: < 15 minutes/day Frequency: 1-2 times per week Keli/Church: [employer] Special keli needs: No Seatbelt use: always Drive intox or ride w/intox milk truck 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 They are very happy. They love to go for long car rides together. Some estrangement from daughter, unclear. Exam <Fredrick Connolly MD - Last Filed: 06/04/20 09:27> Const General: cooperative HENMT Mouth: moist mucous membranes Eyes Conjunctivae: normal conjunctivae Sclera: normal sclerae Neck Neck: trachea midline and supple Resp Effort & Inspection: labored, respiratory distress, no stridor and tachypneic Auscultation: rales bilaterally in the lower lung jose, no rhonchi and no wheezes Cardio Jugular venous pressure: no JVD Rate: tachycardic Rhythm: regular rhythm GI Palpation: soft, not firm, no guarding, no masses, not rigid and nontender Skin General skin exam: no rashes or lesions noted Neuro General: patient alert, patient awake, patient oriented x3 and tone normal Extrem General: no calf tenderness and edema Laterality: bilateral (Trace) Psych Appearance: grossly normal Mental Status: mental status grossly normal Course <Fredrick Connolly MD - Last Filed: 06/04/20 09:27> Vital Signs Vital signs: Vital Signs Temperature 36.2 C L 06/03/20 16:25 Pulse 134 H 06/03/20 16:25 Respiratory Rate 26 H 06/03/20 16:25 Blood Pressure 91/41 L 06/03/20 16:25 Pulse Oximetry 97 06/03/20 16:25 Temperature 36.2 C L 06/03/20 16:25 Temperature Source Skin 06/03/20 16:25 Pulse 134 H 06/03/20 16:25 Respiratory Rate 26 H 06/03/20 16:25 Respiratory Effort Incrsd Work of Breathing 06/03/20 16:43 Blood Pressure 91/41 L 06/03/20 16:25 Pulse Oximetry 97 06/03/20 16:25 Oxygen Delivery Method Non-Rebreather 06/03/20 16:25 Oxygen Flow Rate 15 06/03/20 16:25 End Tidal Co2 21 06/03/20 16:25 Pain Level 10 06/03/20 16:25 Comment 06/03/20 16:25 Critical Care Time <Fredrick Connolly MD - Last Filed: 06/04/20 09:27> Critical Care Time Critical Care Time: Yes Total Critical Care Time: 80 Attestation: I spent greater than 80 minutes addressing this patient's immediate life threats. Please see MDM section of note. This time was spent engaged in work directly related to the patient's care, exclusive of separate procedures, and failure to initiate these interventions would have likely resulted in clinically significant or life threatening deterioration in the patient's condition. Sign Out <Fredrick Connolly MD - Last Filed: 06/04/20 09:27> Sign Out Data: Sign Out Comment: Follow-up on CT head. Consider thrombolytic if becomes hemodynamically unstable. Contact [facility] with results of CT head. Plan for transfer. Last updated by Fredrick Connolly MD at 06/03/20 20:31
[2020-06-03 16:52] LABS: HCT 42.9 % (36.0-46.0); HGB 13.9 g/dL (11.2-15.7); MCH 29.3 pg (27.0-33.0); MCHC 32.4 % (32.0-36.0); MCV 90.5 fL (80-95); MPV 10.2 fL (8.0-11.0); Nucleated RBC 0 %; Platelet Count 255 10^3/uL (130-400); RBC 4.74 10^6/uL (3.93-5.22); RDW 17.1 % (11.7-14.6); RDW-SD 53.4 fL
[2020-06-03 17:04] LABS: PTT Activated 21.2 sec (21.0-31.4)
[2020-06-03 17:11] LABS: ALT 39 U/L (14-59); AST 20 U/L (15-37); Albumin 3.1 g/dL (3.4-5.0); Alkaline Phosphatase 129 U/L (46-116); Anion Gap 10.7 mmol/L (3-11); BUN 21 mg/dL (7-18); Bilirubin, Total 0.4 mg/dL (0.2-1.0); CO2 28.3 mmol/L (21.0-32.0); CREATININE 1.32 mg/dL (0.55-1.02); Chloride 93 mmol/L (98-107); Estimated GFR 39.79 (mL/min/1.73m2); Glucose 185 mg/dL (74-106); NT-proBNP 1276 pg/mL (<300); Potassium 4.4 mmol/L (3.5-5.1); Sodium 132 mmol/L (136-145)
[2020-06-03 17:12] LABS: Absolute Lymphocyte Count 0.85 10^3/uL (1.2-3.4); Absolute Monocyte Count 0.85 10^3/uL (0.1-0.8); Anisocytosis 1+; Bands % 1; Diff Comment Manual Differential; Polychromasia Present
[2020-06-03 17:15] LABS: Troponin I 1.44 ng/mL (<0.06)
[2020-06-03] MEDS: Ondansetron 4 MG/2 ML VIAL IVP (17:41)
--- NOTE | 2020-06-03 19:09 | NUR.NOTE ---
Nursing Note: PT care transferred to richard TOVAR at this time. PT alert and oriented, vitals stable.
--- NOTE | 2020-06-03 19:24 | DI.VRAD_ITS ---
Addendum created by Isac Mitchell MD on 06/03/2020 7:26:20 PM EDT: THIS REPORT CONTAINS FINDINGS THAT MAY BE CRITICAL TO PATIENT CARE. The findings were verbally communicated via telephone conference with TRISTON SANDOVAL at 7:25 PM EDT on 06/03/2020. The findings were acknowledged and understood. Initial report created on 06/03/2020 7:24:13 PM EDT: PROCEDURE INFORMATION: Exam: CT Angiography Chest With Contrast Exam date and time: 06/03/2020 4:33 PM Age: 69 years old Clinical indication: Shortness of breath; Patient HX: SOB, tachycardic TECHNIQUE: Imaging protocol: Computed tomographic angiography of the chest with intravenous contrast. 3D rendering (Not supervised by radiologist): MIP and/or 3D reconstructed images were created by the technologist. COMPARISON: CT NECK CHEST W 01/22/2020 1:00 PM FINDINGS: Pulmonary arteries: Right pulmonary emboli are noted. There is pulmonary embolism evident at the branching point of the primary right pulmonary artery and the right and upper lobe branches. The left lower pulmonary artery is encased by the apparent mass and narrowed. There is no definitive left-sided pulmonary artery embolism. Aorta: Unremarkable. No aortic aneurysm. No aortic dissection. Lungs: Left lower lobe parahilar soft tissue fullness measuring 4.5 x 3.4 by 2.2 cm which may represent a left lower lobe mass. This is present 01/22/2020 and unchanged. Right upper lobe posterior segmental infiltrate versus early pulmonic infarct. Minor atelectasis in the region of the left lingula. Mild atelectatic type features of the right lower lobe versus early infarct. Pleural space: Unremarkable. No pneumothorax. No pleural effusion. Heart: Small pericardial effusion. No significant change since 01/22/2020. There is currently some dilatation of the right ventricle and right atrium. This could represent right heart strain. Lymph nodes: Unremarkable. No enlarged lymph nodes. Bones/joints: Degenerative thoracic spine disease. Irregularities of bone attenuation with areas of sclerotic and lytic type change suggesting metastatic disease. Stable mild compression at approximately T7 and T8. Right anterior 4th rib sclerotic and expansile type process suggesting metastasis. Soft tissues: Unremarkable. IMPRESSION: 1. Right-sided pulmonary embolism. 2. Right ventricular dilatation which may represent right heart strain. 3. Small pericardial effusion. 4. Left parahilar mass. This encases the left lower lobe pulmonary artery. No left-sided pulmonary embolism evident. 5. Subcarinal lymph node measuring 2.4 x 1.8 cm. 6. Posterior segment right upper lobe consolidation which may represent infiltrate or possibly early lung infarct. 7. Minor atelectatic features of the right lower lobe versus minor peripheral infarct. 8. Degenerative thoracic spine changes and appearance consistent with bone metastases. Stable midthoracic mild compression fracture. 9. Right anterior 4th rib changes concerning for metastatic bone lesion. Dictated and Authenticated by: Isac Mitchell MD. Ordering:JAIME Alcala MD
--- NOTE | 2020-06-03 20:15 | DI.CT_ITS ---
EXAM: CT HEAD WO CLINICAL HISTORY: lung ca with mets, consider need for lytics for pe. TECHNIQUE: Imaging Protocol: Axial computed tomography images with coronal and sagittal reformatted images were created and reviewed COMPARISON: CT CT HEAD WO from 11/02/2019 FINDINGS: Ventricles and Extra axial spaces: Normal in size and morphology for the patient's age. Hemorrhage: None. 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 No acute territorial infarct or mass effect. Midline shift: None. Brainstem/Cerebellum: Normal. Calvarium: Normal. Visualized Paranasal sinuses/Mastoids: Mild mucosal thickening the right maxillary sinus. The remain ing visualized paranasal sinuses are clear. Soft Tissues: Unremarkable. IMPRESSION: No acute intracranial process. RADIATION DOSE DELIVERED: 745.35mGy.cm Total DLP DATA REPOSITORY: All CT scans at this facility are submitted to the National Radiology Data Registry (NRDR) Dose Index Registry (DIR) with the [employer] (ACR). RADIATION OPTIMIZATION: All CT scans at this facility use at least one of these dose optimization te chniques: automated exposure control; mA and/or kV adjustment per patient size (includes targeted exa ms where dose is matched to clinical indication); or iterative reconstruction.
[2020-06-03 20:22] LABS: Troponin I 1.38 ng/mL (<0.06)
[2020-06-03] MEDS: Ondansetron 4 MG/2 ML VIAL (20:30)
--- NOTE | 2020-06-03 21:33 | DI.VRAD_ITS ---
PROCEDURE INFORMATION: Exam: CT Head Without Contrast Exam date and time: 06/03/2020 8:44 PM Age: 69 years old Clinical indication: Other: Lung CA with mets, consider need for lytics for pe TECHNIQUE: Imaging protocol: Computed tomography of the head without contrast. COMPARISON: CT HEAD WO 11/02/2019 9:29 PM FINDINGS: Brain: Cerebral atrophy. No hemorrhage. Unremarkable white matter. No mass effect. Ventricles: Normal. No ventriculomegaly. Bones/joints: Unremarkable. No acute fracture. Sinuses: Small air-fluid level in the right maxillary sinus. Mastoid air cells: Visualized mastoid air cells are well aerated. Soft tissues: Unremarkable. IMPRESSION: 1. No acute intracranial abnormality. 2. Cerebral atrophy. 3. No mass lesions. 4. No intracranial hemorrhage. 5. No cerebral edema. 6. No large territory acute CVA. 7. Nonspecific small air-fluid level in the right maxillary sinus. Dictated and Authenticated by: Isac Mitchell MD. Ordering:JAIME Alcala MD
[2020-06-03] MEDS: LORazepam 1 MG TAB PO (21:45)
[2020-06-04 07:49] LABS: COVID-19 RT-PCR UVMMC Result Negative (Negative)
== END 2020-06-03 21:50 | disposition short-term general hospital (02) ==
PROVIDERS: Student in an Organized Health Care Education/Training Program; Emergency Provider Emergency Medicine; PCP Family Medicine
DX: I26.99 Other pulmonary embolism without acute cor pulmonale (principal); R11.0 Nausea; Z86.718 Personal history of other venous thrombosis and embolism; Z51.5 Encounter for palliative care; C50.919 Malignant neoplasm of unspecified site of unspecified female breast; C79.51 Secondary malignant neoplasm of bone; C78.02 Secondary malignant neoplasm of left lung; Z03.818 Encounter for observation for suspected exposure to other biological agents ruled out; I10 Essential (primary) hypertension
CPT/HCPCS: 36415; 71275; 80053; 93005; 96365; 96366; 96375; 96376; 99291; 99292; U0003; 70450; 83880; 84484; 85025; 85730; 93010; J2405

== ENCOUNTER 2020-06-21 15:24 | Outpatient (REF) | payer MEDICARE, SELFPAY ==
[2020-06-21 15:46] LABS: Bilirubin Negative (Negative); Blood Large (Negative); Glucose Negative (Negative); Ketones Negative (Negative); Leukocyte Esterase Small (Negative); Nitrite Negative (Negative); Specific Gravity 1.025 (1.005-1.025); Urobilinogen 0.2 EU/dL (Up TO 0.2)
[2020-06-21 15:49] LABS: Clarity Cloudy (Clear)
[2020-06-21 16:27] LABS: Bacteria Many HPF (Negative); WBC >50 HPF (0-5)
[2020-06-21 16:28] LABS: C & S Indicated? Yes; RBC >50 HPF (0-2)
== END 2020-06-21 15:44 ==
LOC: LBN 15:24
PROVIDERS: PCP Family Medicine; Visit Provider Family Medicine
DX: R31.9 Hematuria, unspecified (principal)
CPT/HCPCS: 87077; 81003; 81015; 87086; 87186

== ENCOUNTER 2020-07-08 11:09 | Inpatient (IN) | payer MEDICARE, SELFPAY ==
[2020-07-08] VITALS (81 sets, daily range): BP systolic 109–161; BP diastolic 34–120; PULSE 79–106; RESP 11–29; TEMP 36.6–37; O2SAT 92–100
--- NOTE | 2020-07-08 11:00 | RT.EKG_ITS ---
APPROVED REPORT Exam: Resting ECG Patient Location: E HR:102 bpm ECG Measurements Heart Rate 102 AXIS VT 143 P 30 QRSd 83 QRS -41 QT 333 T -15 QTc 434 Conclusion Sinus tachycardia...rate> 99 Ventricular premature complex...V complex w/ short R-R interval Aberrant complex...small R-R variation, aberrant QRS Probable left atrial enlargement...P >50mS, <-0.10mV V1 Left anterior fascicular block...axis(240,-40), init forces inf Left ventricular hypertrophy...multiple voltage criteria. I have reviewed and interpreted ECG and agree with software generated interpretation.
[2020-07-08] MEDS: FAMOTIDINE 20 MG/50 ML BAG 200 MG IVPB (11:33)
[2020-07-08] MEDS: Ondansetron 4 MG/2 ML VIAL IVP (11:34)
[2020-07-08] MEDS: Normal Saline 500 ML IV (11:34)
[2020-07-08] MEDS: Normal Saline Flush 10 ML SYR IVP (11:35)
--- NOTE | 2020-07-08 11:41 | W.ED.GENAD ---
Discharge Plan Disposition Patient Disposition: [facility] INPATIENT Condition: Stable Discharge Details Clinical Impression: Nausea, Elevated troponin, History of breast cancer, History of lung cancer Primary Care Provider: Lyly Ramos ED Provider: Danae Tate Home Meds and New Rx's Prescriptions: No Action zolpidem 5 mg tablet 5 mg PO QHS PRN (Reason: sleep) Qty: 30 RF: 1 folic acid 1 mg tablet 1 mg PO DAILY Qty: 90 RF: 4 fluticasone propionate 50 mcg/actuation spray,suspension 2 spray NS DAILY Qty: 9.9 RF: 6 ondansetron 8 mg tablet,disintegrating 8 mg PO Q6H PRN (Reason: nausea and vomiting) Qty: 100 RF: 2 fentanyl 50 mcg/hr patch 72 hour 1 patch TD Q72H MDD 50mcg Qty: 10 RF: 0 lorazepam 1 mg tablet 1 mg PO BID PRN (Reason: anxiety) Qty: 60 RF: 4 apixaban 5 mg tablet 5 mg PO BID Qty: 180 RF: 5 polyethylene glycol 3350 [Miralax] 17 gram powder in packet 17 gm PO DAILY PRN (Reason: constipation) Qty: 100 RF: 4 esomeprazole magnesium 40 mg capsule,delayed release(DR/EC) 40 mg PO BID Qty: 180 RF: 3 dronabinol 5 mg capsule 5 mg PO BID Qty: 180 RF: 3 prednisone 20 mg tablet See Rx Instructions PO DAILY Qty: 50 RF: 3 escitalopram oxalate 10 mg tablet 10 mg PO DAILY RF: 0 Medical Decision Making 1111 -- 69-year-old female with a history of breast and lung cancer with mets to bone, recently diagnosed pulmonary embolism on Eliquis, who presents for nausea and burning lower abdominal pain since last night. She has chronic shortness of breath for which she is on 3 L of nasal cannula oxygen but states this is no worse than usual. She also does complain of chronic intermittent chest pain that occurs mainly at nighttime. She denies any chest pain or shortness of breath at this time. BP mildly hypertensive. Heart rate low 100s. Remainder vitals within normal limits. She has 100% oxygen saturation on 3 L nasal cannula. She has minimal scattered wheezing throughout. She has minimal tenderness across her lower abdomen. She appears in no acute respiratory distress and is speaking in full sentences. Differential diagnosis includes GERD, GI viral illness, peptic ulcer disease, bowel obstruction, UTI, pyelonephritis, ACS, electrolyte abnormality. Will place an IV, bolus IV fluids, screening labs, CT chest abdomen and pelvis and will give a dose of Zofran and Pepcid. 1225 --labs reviewed. White blood cell count 11. Potassium 3.3. Troponin 0.53. Troponin was as high as 1.442 and diagnosed with PE. She has no acute EKG changes. Magnesium 1.4, Will replete. Patient reassessed and she states she feels much better. She denies any nausea or pain at this time. 1420 --CT chest/abdomen/pelvis notes: IMPRESSION: Interval improvement of right-sided pulmonary emboli with a small amount of residual thrombus in the right lower lobe. Stable left perihilar mass. Stable right upper lobe infiltrate. Increased size of left pleural effusion. No acute abnormality in the abdomen and pelvis. Bony metastases. Patient reassessed and still currently denying any nausea or pain. Plan is for repeat troponin and EKG at 3 PM. 1530 -- Repeat EKG unchanged. Repeat troponin uptrending now 0.83. Case discussed with Dr. Curtis who feels that patient is more appropriate for transfer to [facility] as cardiology, pulmonology and echo capability unavailable over the weekend here. Case discussed with [facility] cardiology who does not feel that this is related to ACS but possibly demand ischemia. Could consider obtaining echocardiogram but feels this may be more appropriate for hospitalist medicine. Transfer center will call hospitalist. 1630 -- Case discussed with hospitalist at [facility] and agrees that this could be likely demand ischemia and does not see an acute indication for transfer. Does recommend observation for serial troponins and EKGs. Case discussed with hospitalist Dr. Curtis and she will notify night hospitalist. 1720 -- Case discussed with Dr. Zafar who accepts patient for admission. 1825 --repeat EKG notes a rate of 94, sinus, no acute ST ischemic changes. Repeat troponin mildly up trending at 0.9 Medical Records Medical records reviewed: Yes I reviewed the patient's medical records. Imaging Data Radiologic Study: Radiologist's impression: CT CHEST PE ABD PELVIS W CLINICAL HISTORY: CHRONIC SOB, NAUSEA, BURNING LOWER ABD PAIN. TECHNIQUE: Imaging Protocol: Axial CT angiography was performed with multi-slice acquisition and multi-planar and/or 3D reconstructions. CONTRAST MATERIAL: Intravenous: Omnipaque 350 Contrast volume:structured data in ml COMPARISON: CT CT CHEST PE CTA from 06/03/2020 FINDINGS: CHEST CT: Pulmonary Arteries: There is improvement in the previously noted right-sided pulmonary emboli. There is some residual thrombus in medial basilar segment branch. No new pulmonary emboli are seen. There is no longer evidence of right heart strain. Tracheobronchial tree: Patent where visualized. Mediastinum and Leatha: A pericardial effusion and left perihilar mass are again noted. Stable subcarinal adenopathy. Pulmonary parenchyma: A right upper lobe infiltrate is again noted. Pleura: No pneumothorax. There is a small left pleural effusion, increased in size when compared with the previous exam. Heart: Mild cardiomegaly and coronary artery calcifications. aorta: Thoracic aorta non-dilated. No dissection. Bones: Degenerative changes. Stable sclerotic vertebral body metastases. Stable compression fractures. Sclerotic rib lesions suspicious for metastases. Soft tissues: Stable area of increased density in the right lower neck. ABDOMEN AND PELVIC CT: There is a small hiatal hernia. The liver, gallbladder, spleen and adrenals are unremarkable. The pancreas is somewhat atrophic. There is no evidence of hydronephrosis. There is no bowel dilatation or inflammatory change. There is a moderate quantity of stool. There is no ascites. The bladder is unremarkable. Patient is status post hysterectomy. The aorta is normal in diameter. Sclerotic bony metastases are noted at multiple levels. No compression fractures are seen. IMPRESSION: Interval improvement of right-sided pulmonary emboli with a small amount of residual thrombus in the right lower lobe. Stable left perihilar mass. Stable right upper lobe infiltrate. Increased size of left pleural effusion. No acute abnormality in the abdomen and pelvis. Bony metastases. Lab Data Lab results reviewed: Yes I reviewed the patient's lab results. ECG Data Attestation: I personally reviewed and interpreted this ECG (s) as follows: Interpretation: #1 -- Rate of 102, sinus, T wave inversion in aVF. No acute ST elevation or depression. ID 143. QRS 83. QTc 434. #2 -- Rate of 95, sinus, no acute ST elevation or depression, ID 144, QRS 84, QTc 464. #3 -- Rate of 94, sinus, no acute ST elevation or depression, ID 138, QRS 84, QTc 471. HPI General Mode of arrival: ambulatory. Date/Time Provider Initiated Documentation: 07/08/20 11:24. Limitations to Documentation: no limitations. Information obtained by: patient. HPI Narrative: Pt is a 69yo F with a history of breast and lung cancer with mets to bone, recently diagnosed pulmonary embolism on Eliquis who presents to the ED w/ a c/o nausea and burning lower abdominal pain since last night. Patient was seen here 6 weeks ago for shortness of breath and found to have submassive PE and transferred to [facility]. She was not found to be a candidate for EKOs due to her cancer load. She states she has been taking her Eliquis as directed. She states her shortness of breath and intermittent chest pain is chronic and states is no worse than usual. She states she has burning substernal chest pain that occurs when she lays down at night but denies any at present. She currently denies any shortness of breath worse than usual. She is chronically on 3 L of nasal cannula oxygen throughout the day. She states she has had similar episodes of nausea, dry heaving and abdominal pain a few months ago. She admits to lower abdominal burning that is 7/10. She denies any fever, vomiting, diarrhea or urinary symptoms. She denies any change in diet yesterday, recent travel or recent known sick contacts. Related Data Home Medications Medication Instructions Recorded Confirmed polyethylene glycol 3350 17 gram 17 gm PO DAILY PRN #100 each 06/26/19 07/08/20 oral powder packet zolpidem 5 mg tablet 5 mg PO QHS PRN #30 tab 11/10/19 06/21/20 folic acid 1 mg tablet 1 mg PO DAILY #90 tab 01/25/20 07/08/20 ondansetron 8 mg disintegrating 8 mg PO Q6H PRN #100 tab 02/23/20 07/08/20 tablet prednisone 20 mg tablet See Rx Instructions PO DAILY #50 04/25/20 06/21/20 tab esomeprazole magnesium 40 mg 40 mg PO BID #180 cap 05/09/20 07/08/20 capsule,delayed release fluticasone propionate 50 2 spray NS DAILY #9.9 gm 05/17/20 07/08/20 mcg/actuation nasal spray,suspension dronabinol 5 mg capsule 5 mg PO BID #180 cap 05/26/20 07/08/20 apixaban 5 mg tablet 5 mg PO BID #180 tab 07/04/20 07/08/20 fentanyl 50 mcg/hr transdermal 1 patch TD Q72H #10 ea [facility] 50mcg 07/04/20 07/08/20 patch lorazepam 1 mg tablet 1 mg PO BID PRN #60 tab 07/04/20 07/08/20 escitalopram oxalate 10 mg PO DAILY 07/08/20 07/08/20 Previous Rx's Medication Instructions Recorded polyethylene glycol 3350 17 gram 17 gm PO DAILY PRN #100 each 06/26/19 oral powder packet zolpidem 5 mg tablet 5 mg PO QHS PRN #30 tab 11/10/19 folic acid 1 mg tablet 1 mg PO DAILY #90 tab 01/25/20 ondansetron 8 mg disintegrating 8 mg PO Q6H PRN #100 tab 02/23/20 tablet prednisone 20 mg tablet See Rx Instructions PO DAILY #50 04/25/20 tab esomeprazole magnesium 40 mg 40 mg PO BID #180 cap 05/09/20 capsule,delayed release fluticasone propionate 50 2 spray NS DAILY #9.9 gm 05/17/20 mcg/actuation nasal spray,suspension dronabinol 5 mg capsule 5 mg PO BID #180 cap 05/26/20 apixaban 5 mg tablet 5 mg PO BID #180 tab 07/04/20 fentanyl 50 mcg/hr transdermal 1 patch TD Q72H #10 ea [facility] 50mcg 07/04/20 patch lorazepam 1 mg tablet 1 mg PO BID PRN #60 tab 07/04/20 Allergies Allergy/AdvReac Type Severity Reaction Status Date / Time prochlorperazine Allergy Intermediate Agitation Verified 06/21/20 10:07 [From Compazine] meloxicam AdvReac Severe GI UPSET Verified 06/21/20 10:07 atorvastatin AdvReac Intermediate GI Verified 06/21/20 10:07 INTOLERANCE azithromycin AdvReac Intermediate INTOLERANCE Verified 06/21/20 10:07 simvastatin AdvReac Intermediate INTOLERANCE Verified 06/21/20 10:07 lisinopril AdvReac Mild cough Verified 06/21/20 10:07 General Stated Complaint: GenMedical OSMEL: 3 Review of Systems All systems reviewed & are unremarkable except as noted in HPI and below Constitutional Constitutional: Reports as per HPI, Denies chills and Denies fever(s) Eyes Eyes: Denies blurry vision ENT Ears, Nose, Mouth, and Throat: Denies dizziness, Denies sore throat and Denies throat swelling Cardiovascular Cardiovascular: Denies chest pain and Reports dyspnea Respiratory Respiratory: Denies cough and Reports dyspnea Gastrointestinal Gastrointestinal: Reports abdominal pain, Denies diarrhea, Reports nausea and Denies vomiting Genitourinary Genitourinary: Denies hematuria and Denies dysuria Musculoskeletal Musculoskeletal: Denies back pain and Denies numbness Integumentary/Breasts Skin/Breast: Denies lesions and Denies rash Neurologic Neurologic: Denies dizziness, Denies localized weakness and Denies numbness Allergic/Immunologic Allergic/Immunologic: Denies throat swelling [facility] Medical History Adopted Chest discomfort r/t to pt. lung cancer Chronic pain of left knee (04/11/16) She sees Dr. Gee for this. Colon polyp (05/09/14) 04/23/14 tubular adenoma x 2 08/2017 tubular adenoma x 8 Denial as mental defense mechanism helps her cope; she is self-aware of her denial Discharge planning issues DVT prophylaxis Ear pain, left ? 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 Granddaughter No problems noted. Social History Smoking/Tobacco Use Status: Former Tobacco Use Quit Date: 10/07/84 Tobacco: How many years used: 20 Second Hand Exposure: Yes Alcohol Intake: former Drug use: Daily Substance use type: marijuana Counseling given: No Counseling provided: none Details: recently started with marijuana edibles. Adopted: Yes Caregiver/Support person: Yes Household members: spouse Housing: house Number of Children: 1 number of grandchildren: 2 Communication Needs: Corrective Lenses Education Level: high school Do you need help understanding health information?: Often Pets and animals: Yes (Selam Hair cats x 2) Pets and animals: cat(s) Current gender identity: female What is your relationship status?: How often do you talk on the phone with friends or family?: once per week How often do you get together with friends or relatives?: once per week How often do you attend orthodoxy or buddhism services?: decline to answer Do you belong to any clubs or organized social groups?: no Panel score (0-1 are the most socially isolated patients): 1 What type of physical activity do you participate in: walking, occasional exercise and sedentary lifestyle Duration: < 15 minutes/day Frequency: 1-2 times per week Keli/Baptist: Moravian Special keli needs: No Seatbelt use: always Drive intox or ride w/intox emt 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 They are very happy. They love to go for long car rides together. Some estrangement from daughter, unclear. Exam Const General: cooperative and no acute distress Orientation: alert, awake and oriented x3 HENMT Head: normal to inspection Face and sinus: normal facial exam Eyes General: appearance normal, both eyes and all related structures EOM: EOM intact bilaterally Neck Neck: normal visual inspection and No submandibular swelling Lymphatic: no lymphadenopathy noted Chest Chest: normal inspection of the chest and no tenderness Resp Effort & Inspection: normal respiratory effort and able to speak in complete sentences Auscultation: clear to auscultation bilaterally Cardio Rate: regular rate Rhythm: regular rhythm GI Inspection: normal to inspection and obesity Palpation: soft, not firm, not rigid and tender (Across lower abdomen) Auscultation: hypoactive bowel sounds Skin General skin exam: no rashes or lesions noted Neuro General: patient alert, patient awake and patient oriented x3 Cognition: normal cognition Speech: speech normal Motor: muscle tone normal throughout Sensory Exam: no sensory deficits noted Extrem General: normal to inspection, full ROM, capillary refill normal, no calf tenderness bilaterally and no edema Psych Appearance: grossly normal Mental Status: mental status grossly normal Speech and Movement: speech and movement normal Affect: normal affect Course Vital Signs Vital signs: Vital Signs Temperature 97.9 F 07/08/20 11:11 Pulse 106 H 07/08/20 11:11 Respiratory Rate 20 07/08/20 11:11 Blood Pressure 161/81 H 07/08/20 11:11 Pulse Oximetry 99 07/08/20 11:11 Temperature 97.9 F 07/08/20 11:11 Temperature Source Skin 07/08/20 11:11 Pulse 106 H 07/08/20 11:11 Respiratory Rate 20 07/08/20 11:21 Respiratory Effort 07/08/20 11:21 Respiratory Depth Normal 07/08/20 11:21 Respiratory Pattern Normal 07/08/20 11:21 Blood Pressure 161/81 H 07/08/20 11:11 Blood Pressure Position Supine 07/08/20 11:11 Pulse Oximetry 99 07/08/20 11:11 Oxygen Delivery Method Nasal Cannula 07/08/20 11:11 Oxygen Flow Rate 4 07/08/20 11:11
[2020-07-08 12:09] LABS: Abs Immature Grans 0.16 10^3/uL (0.0-0.06); Absolute Basophil Count 0.02 10^3/uL (0.0-0.2); Absolute Eosinophil Count 0.02 10^3/uL (0.0-0.7); Absolute Monocyte Count 0.77 10^3/uL (0.1-0.8); Basophils % 0.2; Eosinophils % 0.2; HCT 32.2 % (36.0-46.0); HGB 10.2 g/dL (11.2-15.7); Immature Grans % 1.4; Lymphocytes % 2.6; MCH 29.9 pg (27.0-33.0); MCHC 31.7 % (32.0-36.0); MCV 94.4 fL (80-95); Monocytes % 6.6; Nucleated RBC 0 %; Platelet Count 132 10^3/uL (130-400); RBC 3.41 10^6/uL (3.93-5.22); RDW 15.5 % (11.7-14.6); RDW-SD 53.6 fL; WBC 11.71 10^3/uL (4.4-10.8)
[2020-07-08 12:10] LABS: Absolute Neutrophil Count 10.42 10^3/uL (1.2-6.7)
[2020-07-08 12:23] LABS: ALT 47 U/L (14-59); AST 20 U/L (15-37); Albumin 2.3 g/dL (3.4-5.0); Alkaline Phosphatase 145 U/L (46-116); Anion Gap 3.4 mmol/L (3-11); BUN 15 mg/dL (7-18); Bilirubin, Total 0.4 mg/dL (0.2-1.0); CO2 31.6 mmol/L (21.0-32.0); CREATININE 0.57 mg/dL (0.55-1.02); Chloride 104 mmol/L (98-107); Glucose 115 mg/dL (74-106); Magnesium 1.4 mg/dL (1.8-2.4); Potassium 3.3 mmol/L (3.5-5.1); Sodium 139 mmol/L (136-145); Total Protein 5.2 g/dL (6.4-8.2)
[2020-07-08 12:24] LABS: Troponin I 0.53 ng/mL (<0.06)
[2020-07-08 12:30] LABS: PTT Activated 21.1 sec (21.0-31.4); Prothrombin Time 9.9 sec (9.3-11.0)
--- NOTE | 2020-07-08 12:30 | RT.EKG_ITS ---
APPROVED REPORT Exam: Resting ECG Patient Location: E HR:95 bpm ECG Measurements Heart Rate 95 AXIS NV 144 P 23 QRSd 84 QRS -40 QT 368 T -24 QTc 464 Conclusion Sinus rhythm...normal P axis, V-rate 60- 99 Probable left atrial enlargement...P >50mS, <-0.10mV V1 Left anterior fascicular block...axis(240,-40), init forces inf Left ventricular hypertrophy...multiple voltage criteria I have reviewed and interpreted ECG and agree with software generated interpretation. No significant change from previous. No STEMI. I have reviewed and interpreted ECG and agree with software generated interpretation.
[2020-07-08] MEDS: MAGNESIUM SULFATE 2 GM/50 ML BAG IVPB (12:46)
[2020-07-08] MEDS: Potassium Chloride 20 MEQ TABCR PO (12:46)
--- NOTE | 2020-07-08 13:45 | DI.CT_ITS ---
EXAM: CT CHEST PE ABD PELVIS W CLINICAL HISTORY: CHRONIC SOB, NAUSEA, BURNING LOWER ABD PAIN. TECHNIQUE: Imaging Protocol: Axial CT angiography was performed with multi-slice acquisition and mu lti-planar and/or 3D reconstructions. CONTRAST MATERIAL: Intravenous: Omnipaque 350 Contrast volume:structured data in ml COMPARISON: CT CT CHEST PE CTA from 06/03/2020 FINDINGS: CHEST CT: Pulmonary Arteries: There is improvement in the previously noted right-sided pulmonary emboli. There is some residual thrombus in medial basilar segment branch. No new pulmonary emboli are seen. Ther e is no longer evidence of right heart strain. Tracheobronchial tree: Patent where visualized. Mediastinum and Leatha: A pericardial effusion and left perihilar mass are again noted. Stable subcarin al adenopathy. Pulmonary parenchyma: A right upper lobe infiltrate is again noted. Pleura: No pneumothorax. There is a small left pleural effusion, increased in size when compared wit h the previous exam. Heart: Mild cardiomegaly and coronary artery calcifications. aorta: Thoracic aorta non-dilated. No dissection. Bones: Degenerative changes. Stable sclerotic vertebral body metastases. Stable compression fractur es. Sclerotic rib lesions suspicious for metastases. Soft tissues: Stable area of increased density in the right lower neck. ABDOMEN AND PELVIC CT: There is a small hiatal hernia. The liver, gallbladder, spleen and adrenals are unremarkable. The p ancreas is somewhat atrophic. There is no evidence of hydronephrosis. There is no bowel dilatation or inflammatory change. There is a moderate quantity of stool. There is no ascites. The bladder is unremarkable. Patient is status post hysterectomy. The aorta is normal in diameter. Sclerotic bon y metastases are noted at multiple levels. No compression fractures are seen. IMPRESSION: Interval improvement of right-sided pulmonary emboli with a small amount of residual thrombus in the right lower lobe. Stable left perihilar mass. Stable right upper lobe infiltrate. Increased size o f left pleural effusion. No acute abnormality in the abdomen and pelvis. Bony metastases. RADIATION DOSE DELIVERED: 1,761.2mGy.cm Total DLP DATA REPOSITORY: All CT scans at this facility are submitted to the National Radiology Data Registry (NRDR) Dose Index Registry (DIR) with the [employer] (ACR). RADIATION OPTIMIZATION: All CT scans at this facility use at least one of these dose optimization te chniques: automated exposure control; mA and/or kV adjustment per patient size (includes targeted exa ms where dose is matched to clinical indication); or iterative reconstruction.
[2020-07-08 13:54] LABS: Bilirubin Negative (Negative); Blood Trace-intact (Negative); Clarity Sl Cloudy (Clear); Glucose Negative (Negative); Ketones Negative (Negative); Leukocyte Esterase Trace (Negative); Nitrite Negative (Negative); Specific Gravity 1.015 (1.005-1.025); Urobilinogen 0.2 EU/dL (Up TO 0.2); pH 7.5 (5-8)
[2020-07-08] MEDS: Normal Saline - Diluent 50 ML VIAL IV (14:05)
[2020-07-08] MEDS: Omnipaque 350 MG/ML 100 ML BTL IJ (14:06)
[2020-07-08 14:07] LABS: Bacteria Rare HPF (Negative); C & S Indicated? No/Sq. Contamination; Casts Negative LPF (Negative); Crystals Many Amorphous HPF (Negative); Epithelial Cells Moderate HPF (Negative); Mucus Negative (Negative); Other Cells Few Transitional (Negative); RBC 0-2 HPF (0-2); WBC 0-2 HPF (0-5)
[2020-07-08 15:38] LABS: Troponin I 0.83 ng/mL (<0.06)
--- NOTE | 2020-07-08 17:45 | RT.EKG_ITS ---
APPROVED REPORT Exam: Resting ECG Patient Location: I HR:94 bpm ECG Measurements Heart Rate 94 AXIS IL 138 P 19 QRSd 84 QRS -38 QT 377 T -6 QTc 471 Conclusion Sinus rhythm...normal P axis, V-rate 60- 99 Probable left atrial enlargement...P >50mS, <-0.10mV V1 Left ventricular hypertrophy...multiple LVH criteria
--- NOTE | 2020-07-08 17:52 | HPE_ITS ---
Date of service: 07/08/20 Time of Service: 17:52 Assessment and Plan Assessment and plan (1) Nausea: Status: Acute Assessment and plan: Nausea. Non-specific, and at this point seems to have pretty well resolved. However the bump in troponin is notable and would not appear to be related to PE (to which bump in 05/26 was ascribed). Altogether I have some concern for anginal equivalent, which would be further supported by the report of the longer spell today. Whether this supposition is correct or not there is clearly some issue with myocardial ischemia, but unclear if type 1 or 2. Will trend out troponis and EKG, give dose of ASA for now, and treat any recurrent nausea empirically. Reviewed ADs, requests DNR. History of Present Illness History of Present Illness Chief Complaint: NAUSEA Narrative: 6O female with h/o breast CA, metatstatic ,lung CA, here 05/26 with PE, now on Eliquis. Reports she has had intermittent nausea for many months now, but today had more pe rsistent and intense spell; indeed still present on arrival but has improved since Belkis and Marya (says she thinks it may have been improving prior?). Has additionally regular spells of CP since October, and more or less constant SOB -- neither of which is significantly changed from baseline. In ER findings of note for improving clot burden on CTA, EKG with scattered TW changes (unclear if new since most recent in May had poor baseline) and troponins of 0.5 then 0.8. At present states she feels close to baseline. Note she reports her usual ASA was d/c'ed last week -- she does not know why and I cannot find reference in most recent office notes. But states she was not having any trouble or bleeding issues with it. Review of Systems All systems reviewed & are unremarkable except as noted in HPI and below PFSH Medical History Adopted Chest discomfort r/t to pt. lung cancer Chronic pain of left knee (04/11/16) She sees Dr. Gee for this. Colon polyp (05/09/14) 04/23/14 tubular adenoma x 2 08/2017 tubular adenoma x 8 Denial as mental defense mechanism helps her cope; she is self-aware of her denial Discharge planning issues DVT prophylaxis Ear pain, left ? 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 Granddaughter No problems noted. Social History Smoking/Tobacco Use Status: Former Tobacco Use Quit Date: 10/07/84 Tobacco: How many years used: 20 Second Hand Exposure: Yes Alcohol Intake: former Drug use: Daily Substance use type: marijuana Counseling given: No Counseling provided: none Details: recently started with marijuana edibles. Adopted: Yes Caregiver/Support person: Yes Household members: spouse Housing: house Number of Children: 1 number of grandchildren: 2 Communication Needs: Corrective Lenses Education Level: high school Do you need help understanding health information?: Often Pets and animals: Yes (Selam Hair cats x 2) Pets and animals: cat(s) Current gender identity: female What is your relationship status?: How often do you talk on the phone with friends or family?: once per week How often do you get together with friends or relatives?: once per week How often do you attend taoism or hoahaoism services?: decline to answer Do you belong to any clubs or organized social groups?: no Panel score (0-1 are the most socially isolated patients): 1 What type of physical activity do you participate in: walking, occasional exercise and sedentary lifestyle Duration: < 15 minutes/day Frequency: 1-2 times per week Keli/Yazdanism: Gnosticism Special keli needs: No Seatbelt use: always Drive intox or ride w/intox racing car 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 They are very happy. They love to go for long car rides together. Some estrangement from daughter, unclear. Meds Home Medications and Allergies Home Medications Medication Instructions Recorded Confirmed Type polyethylene glycol 3350 17 gram 17 gm PO DAILY PRN #100 each 06/26/19 07/08/20 Rx oral powder packet zolpidem 5 mg tablet 5 mg PO QHS PRN #30 tab 11/10/19 06/21/20 Rx folic acid 1 mg tablet 1 mg PO DAILY #90 tab 01/25/20 07/08/20 Rx ondansetron 8 mg disintegrating 8 mg PO Q6H PRN #100 tab 02/23/20 07/08/20 Rx tablet prednisone 20 mg tablet See Rx Instructions PO DAILY #50 04/25/20 06/21/20 Rx tab esomeprazole magnesium 40 mg 40 mg PO BID #180 cap 05/09/20 07/08/20 Rx capsule,delayed release fluticasone propionate 50 2 spray NS DAILY #9.9 gm 05/17/20 07/08/20 Rx mcg/actuation nasal spray,suspension dronabinol 5 mg capsule 5 mg PO BID #180 cap 05/26/20 07/08/20 Rx apixaban 5 mg tablet 5 mg PO BID #180 tab 07/04/20 07/08/20 Rx fentanyl 50 mcg/hr transdermal 1 patch TD Q72H #10 ea MDD 50mcg 07/04/20 07/08/20 Rx patch lorazepam 1 mg tablet 1 mg PO BID PRN #60 tab 07/04/20 07/08/20 Rx escitalopram oxalate 10 mg PO DAILY 07/08/20 07/08/20 History Allergies Allergy/AdvReac Type Severity Reaction Status Date / Time prochlorperazine Allergy Intermediate Agitation Verified 06/21/20 10:07 [From Compazine] meloxicam AdvReac Severe GI UPSET Verified 06/21/20 10:07 atorvastatin AdvReac Intermediate GI Verified 06/21/20 10:07 INTOLERANCE azithromycin AdvReac Intermediate INTOLERANCE Verified 06/21/20 10:07 simvastatin AdvReac Intermediate INTOLERANCE Verified 06/21/20 10:07 lisinopril AdvReac Mild cough Verified 06/21/20 10:07 Exam Narrative Exam Narrative: 125/75, 95, 36.6, 14, 93% 3L (on 3L at home). HEENT atraumatic; neck supple; lungs scattered rhonchi; heart RRR w/o MRG; abdomen soft and NT; extremities w/o edema, feet cool but pulses strong; neuro ox3, moves all 4s. Results Labs Result diagrams: 07/08/20 12:03 07/08/20 12:03 Labs: Laboratory Results - last 24 hr 07/08/20 07/08/20 07/08/20 12:03 12:03 12:03 WBC 11.71 H RBC 3.41 L Hgb 10.2 L Hct 32.2 L MCV 94.4 MCH 29.9 MCHC 31.7 L RDW 15.5 H Plt Count 132 MPV 10.0 Immature Gran % 1.4 Neutrophils % 89.0 Lymphocytes % 2.6 Monocytes % 6.6 Eosinophils % 0.2 Basophils % 0.2 Nucleated RBC % 0 Absolute Neutrophils 10.42 H Absolute Lymphocytes 0.30 L Absolute Monocytes 0.77 Absolute Eosinophils 0.02 Absolute Basophils 0.02 PT 9.9 INR 1.0 APTT 21.1 Sodium 139 Potassium 3.3 L Chloride 104 Carbon Dioxide 31.6 Anion Gap 3.4 BUN 15 Creatinine 0.57 Estimated GFR/1.73 m2 >= 60.00 Glucose 115 H Calcium 8.0 L Magnesium 1.4 L Total Bilirubin 0.4 AST 20 ALT 47 Alkaline Phosphatase 145 H Troponin I 0.53 H* Total Protein 5.2 L Albumin 2.3 L Urine Color Urine Clarity Urine pH Ur Specific [place] Urine Protein Urine Ketones Urine Blood Urine Nitrite Urine Bilirubin Urine Urobilinogen Ur Leukocyte Esterase Urine RBC Urine WBC Ur Epithelial Cells Urine Crystals Urine Bacteria Urine Casts Urine Mucus Urine Other Ur Culture Indicated? Urine Glucose 07/08/20 07/08/20 13:47 15:08 WBC RBC Hgb Hct MCV MCH MCHC RDW Plt Count MPV Immature Gran % Neutrophils % Lymphocytes % Monocytes % Eosinophils % Basophils % Nucleated RBC % Absolute Neutrophils Absolute Lymphocytes Absolute Monocytes Absolute Eosinophils Absolute Basophils PT INR APTT Sodium Potassium Chloride Carbon Dioxide Anion Gap BUN Creatinine Estimated GFR/1.73 m2 Glucose Calcium Magnesium Total Bilirubin AST ALT Alkaline Phosphatase Troponin I 0.83 H* Total Protein Albumin Urine Color Yellow Urine Clarity Sl cloudy Urine pH 7.5 Ur Specific [place] 1.015 Urine Protein Negative Urine Ketones Negative Urine Blood Trace-intact H Urine Nitrite Negative Urine Bilirubin Negative Urine Urobilinogen 0.2 Ur Leukocyte Esterase Trace H Urine RBC 0-2 Urine WBC 0-2 Ur Epithelial Cells Moderate Urine Crystals Many amorphous Urine Bacteria Rare Urine Casts Negative Urine Mucus Negative Urine Other Few transitional Ur Culture Indicated? No/sq. contamination Urine Glucose Negative Last Vital Signs Temp 36.6 C 07/08/20 11:11 Pulse 98 H 07/08/20 16:31 Resp 14 07/08/20 17:00 BP 125/75 07/08/20 16:31 Pulse Ox 93 07/08/20 17:00 COVID-19 Screening Have you,or household,traveled outside [place] in last 14 days?: No Had IN PERSON contact w/suspected or confirmed C-19 person: No
[2020-07-08] MEDS: Aspirin 325 MG TAB PO (18:35)
[2020-07-08] MEDS: Apixaban 5 MG TAB PO (20:35)
[2020-07-08] MEDS: predniSONE 10 MG TAB PO (20:35)
[2020-07-08] MEDS: Esomeprazole 40 MG CAPCR PO (20:35)
[2020-07-08] MEDS: Dronabinol 2.5 MG CAP 5 MG PO (20:35)
[2020-07-08] MEDS: fentaNYL 50 MCG PATCH TD (20:36)
[2020-07-08] MEDS: LORazepam 1 MG TAB PO (20:48)
[2020-07-08] MEDS: Zolpidem 5 MG TAB PO (22:44)
[2020-07-09] VITALS (31 sets, daily range): BP systolic 113–154; BP diastolic 50–94; PULSE 75–112; RESP 10–24; TEMP 36.1–37; O2SAT 87–98
[2020-07-09] MEDS: oxyCODONE 10 MG TAB PO ×2 (01:12→06:47)
--- NOTE | 2020-07-09 06:15 | RT.EKG_ITS ---
APPROVED REPORT Exam: Resting ECG Patient Location: I HR:97 bpm ECG Measurements Heart Rate 97 AXIS NC 144 P 42 QRSd 83 QRS -36 QT 360 T 31 QTc 457 Conclusion Sinus rhythm...normal P axis, V-rate 60- 99 Ventricular premature complex...V complex w/ short R-R interval Probable left atrial enlargement...P >50mS, <-0.10mV V1 Left ventricular hypertrophy...multiple LVH criteria Left Anterior Fascicular Block
[2020-07-09 07:41] LABS: Magnesium 2.1 mg/dL (1.8-2.4)
[2020-07-09 07:43] LABS: Troponin I 0.83 ng/mL (<0.06)
[2020-07-09] MEDS: Esomeprazole 40 MG CAPCR PO ×2 (07:58→20:02)
[2020-07-09 08:18] LABS: NT-proBNP 2171 pg/mL (<300)
--- NOTE | 2020-07-09 08:23 | PDOC.CMIN ---
- If Service Date Differs Date of service: 07/09/20 Time of Service: 08:23 Care Management Initial Assess REASON FOR HOSPITALIZATION:: Nausea and elevated troponin. PAST MEDICAL HISTORY/PAST SURGICAL HISTORY:: Medical History: Adopted, Chest discomfort - r/t to pt. lung cancer, Chronic pain of left knee - She sees Dr. Gee for this, Colon polyp - 04/23/14 tubular adenoma x 2 - 08/2017 tubular adenoma x 8, Denial as mental defense mechanism - helps her cope; she is self-aware of her denial, Discharge planning issues, DVT prophylaxis, Ear pain, left - ? 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 Seasonal allergies, Seborrheic keratosis, Tubular adenoma, Varicose veins of lower extremity - h/o phlebitis, and Weight loss, non-intentional. Surgical History: Abdominal hysterectomy - BSO, Biopsy of breast - left; DCIS; lobular CA in situ, Colonoscopy - MAC, EGD - MAC, and History of biopsy - right clavicle, 11/03/2019, Dr Quiñones. PREVIOUS FUNCTIONAL STATUS/SOCIAL/FAMILY SUPPORTS:: Sindi resides in [place] with her , Herman. Their daughter, Freya, lives in [place] and is a source of support for the couple. 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 Sindi and Herman celebrated their 50th wedding anniversary in June of this year. CURRENT FUNCTIONAL STATUS:: Sindi is laying in bed when CM comes to meet with her. Her , Herman, and daughter, Freya, are present in the room. CM briefly speaks with Sindi's daughter, Freya, who provides the information for this assessment. CM will continue to follow. ADVANCE DIRECTIVES:: [employer] and [employer], Herman Jovita is agent. Has patient been provided with info about the portal/API?: Yes Did the patient sign up for the portal?: Yes (Previously enrolled) CODE STATUS:: DNR/DNI INSURANCE COVERAGE / FINANCIAL ISSUES:: Medicare and Financial Asst 100. CURRENT HOME/COMMUNITY SERVICES/EQUIPMENT:: Sindi has VNA nursing through [facility]. She has a walker, cane, tub seat and grab bars, and is on 3 L of home oxygen. PRIMARY CARE PHYSICIAN:: Lyly Ramos MD POTENTIAL DISCHARGE NEEDS:: Undetermined at this time, dependent on progress. PATIENT/FAMILY EDUCATION NEEDS:: Discharge instructions, limitations, follow up plan of care, including Ask Me Three and self-management. ANTICIPATED BARRIERS TO DISCHARGE:: None. TRANSPORTATION:: Dependent on disposition. PLAN:: Plan is undetermined at this time. will continue to support Sindi, her family and discharge planning needs.
[2020-07-09] MEDS: predniSONE 10 MG TAB PO ×2 (08:40→20:02)
[2020-07-09] MEDS: Apixaban 5 MG TAB PO ×2 (08:41→20:02)
[2020-07-09] MEDS: Normal Saline Flush 10 ML SYR IVP ×3 (08:41→16:00)
[2020-07-09] MEDS: Polyethylene Glycol 3350 17 GM PACKET PO (08:41)
[2020-07-09] MEDS: Folic Acid 1 MG TAB PO (08:41)
[2020-07-09] MEDS: Aspirin E.C. 81 MG TABEC PO (08:41)
[2020-07-09] MEDS: Metoprolol 25 MG TAB PO ×2 (08:41→16:00)
[2020-07-09] MEDS: Dronabinol 2.5 MG CAP 5 MG PO ×2 (08:54→16:00)
[2020-07-09] MEDS: Escitalopram 10 MG TAB PO (08:55)
[2020-07-09] MEDS: LORazepam 1 MG TAB PO (08:56)
[2020-07-09] MEDS: Furosemide 20 MG/2 ML VIAL IVP ×2 (09:49→16:00)
--- NOTE | 2020-07-09 10:56 | PHA.REVIEW ---
Pharmacy Admission Review - Admission Clinical Review (Last Reviewed 07/08/20 @ 17:59 by Herman Zafar MD) Nausea (Acute) Elevated troponin (Acute) History of breast cancer (Acute) History of lung cancer (Acute) prochlorperazine [From Compazine] Allergy (Intermediate, Verified 06/21/20 10:07) Agitation meloxicam Adverse Reaction (Severe, Verified 06/21/20 10:07) GI UPSET atorvastatin Adverse Reaction (Intermediate, Verified 06/21/20 10:07) GI INTOLERANCE azithromycin Adverse Reaction (Intermediate, Verified 06/21/20 10:07) INTOLERANCE simvastatin Adverse Reaction (Intermediate, Verified 06/21/20 10:07) INTOLERANCE lisinopril Adverse Reaction (Mild, Verified 06/21/20 10:07) cough Height 5 ft 5 in Weight 97.1 kg - Renal Dosing Renal Dosing: BUN 15 mg/dL (7-18) 07/08/20 12:03 Creatinine 0.57 mg/dL (0.55-1.02) 07/08/20 12:03 Medications needing adjustments: Reviewed (Crcl ~105 mL/min using adjusted body weight. Current meds okay) - Anticoagulation Anticoagulation: Hgb 10.2 g/dL (11.2-15.7) L 07/08/20 12:03 Hct 32.2 % (36.0-46.0) L 07/08/20 12:03 Plt Count 132 10^3/uL (130-400) 07/08/20 12:03 INR 1.0 (0.9-1.1) 07/08/20 12:03 Creatinine 0.57 mg/dL (0.55-1.02) 07/08/20 12:03 DVT Prohphylaxis: N/A Therapeutic Anticoagulation: Reviewed Medications: Apixaban - Opiate Usage Evaluate Pain Scale/Pains Meds: Reviewed Scheduled Bowel Reg ordered if on Opiates?: No (prn miralax ordered) - Relevant Labs Sodium 139 mmol/L (136-145) 07/08/20 12:03 Potassium 4.0 mmol/L (3.5-5.1) D 07/09/20 06:32 Chloride 104 mmol/L (98-107) 07/08/20 12:03 Magnesium 2.1 mg/dL (1.8-2.4) 07/09/20 06:32 Electrolytes, C-Reactive P, ESR: Reviewed (K+ and mag improved (replacement given yesterday)) - DM Control DM Control: Glucose 115 mg/dL (74-106) H 07/08/20 12:03 Insulin Dosing: Intervened (was elevated on admission, looking at pts history has been elevated most visits in 2019, A1c in January 2020 was 5.9. Mentioned to provider.) - Heart Failure/ME Heart Failure/ME: Troponin I 0.83 ng/mL (<0.06) H* 07/09/20 06:32 NT-Pro-B Natriuret Pep 2171 pg/mL (<300) H 07/09/20 06:32 EF%, DAVID's, B-Blockers, Diuretics: Reviewed (troponins: 0.53, 0.83, 0.90, 0.83, one more pending today) - BP Control BP Control: Blood Pressure 154/70 Blood Pressure 134/66 Blood Pressure 139/94 Blood Pressure 114/78 Blood Pressure 112/34 Blood Pressure 146/120 Blood Pressure 132/51 Blood Pressure 125/56 If elevated: Reviewed (metoprolol and furosemide started this morning) - Qtc Review If Elevated: N/A (QTc 464 yesterday (increased from admission), todays EKG has not been read yet. Has escitalopram and ondanserton ordered.) - IV to PO Switch IV Medications: Reviewed - Home Meds Home Med List reviewed: Reviewed (Multiple [employer] depressants: dronabinol, fentanyl, lorazepam, zolpidem (recommended to avoid concomitant use when possible). Multiple QT prolonging meds: escitalopram, ondansetron (increased monitoring when used together). Per external med history prednisone is a taper and zolpidem lasted p/u in Nov.) Relevent Home Meds Not ordered & why?: fluticasone - Current meds Current Medication Order Review: Intervened (adjusted escitalopram dosing per med administration timing policy, talked to provider about adjusting dronabinol dosing to before lunch and dinner) - Comments Comments/Follow Ups: Watch BP, BG, K+, mag, QTc, and for med changes.
--- NOTE | 2020-07-09 11:34 | W.PM.PROGNOT ---
Date of Service Date of service: 07/09/20 Time of Service: 11:35 Assessment and Plan Assessment and plan (1) Non-ST elevation myocardial infarction (NSTEMI): Status: Acute Assessment and plan: Dr. Tate spoke with [facility] entry level automotive technician on-call last night who felt that the patient's troponin elevation was demand ischemia. It is unclear to me as to exactly what the demand they were thinking of. Patient was not in any SVT or atrial fibrillation and was not septic. Will patient has metastatic cancer either from her breast or her lung this is not an acute situation. Patient had a recent pulmonary embolus however CTA of her chest yesterday showed improvement of the previously seen clots involving her right lung and she had no evidence of right ventricular strain on CT scan. At this point the patient just wants medical treatment which would include beta-blockers aspirin and she will remain on Eliquis for her pulmonary embolus. She has been intolerant of statin therapy. She is also been intolerant of lisinopril which caused a cough however we may be able to try low-dose losartan after we titrate her beta-blockers and diuretics. And give her low-dose diuretic today as she appears to be in some mild CHF. (2) History of pulmonary embolism: Status: Acute Assessment and plan: Continue therapeutic Eliquis. (3) Breast cancer metastasized to bone: Status: Acute Assessment and plan: Follow-up with your oncologist regarding results of recent lung biopsy. Qualifiers: Laterality: unspecified laterality Qualified Code(s): C50.919 - Malignant neoplasm of unspecified site of unspecified female breast; C79.51 - Secondary malignant neoplasm of bone (4) Lung cancer: Status: Chronic Assessment and plan: Follow-up with your oncologist regarding results of recent lung biopsy. Qualifiers: Lung location: unspecified part of lung Laterality: unspecified laterality Qualified Code(s): C34.90 - Malignant neoplasm of unspecified part of unspecified bronchus or lung Subjective Subjective Interval history since last seen: Patient was admitted with exertional dyspnea and chest tightness. Patient was ruled in for an non-ST elevated GA. She is currently pain-free. She still gets dyspnea with any kind of physical activity. Her troponin level peaked at 0.9 last night is down to 0.83 this morning. ECG last night showed sinus tachycardia with left anterior fascicular block and LVH as well as some inferior T wave inversions that have since improved. Dr. Zafar discussed with the patient possible transfer to [facility] for cardiac catheterization. She declined transfer. She reiterated her declination this morning. She feels that she is too weak to undergo cardiac catheterization. She currently suffers from bone metastasis from either breast or lung cancer. She states she had a lung biopsy approximately a week ago through [facility]. She is not currently on chemotherapy. She denies any previous history of congestive heart failure or ischemic heart disease. She was diagnosed in the last month with a pulmonary embolus and was started on Eliquis. Dr. Zafar gave her an aspirin last night but did not start beta-blockade yet. She also did not receive any Lasix. Patient is dyspneic with any kind of activity such as getting out of bed but while lying still she is not dyspneic and she is able to talk in complete sentences. She denies any chest discomfort or nausea this morning. We are still trending her troponin levels. Repeat ECG this morning showed resolution of her inferior T wave changes. She continues to have sinus rhythm with evidence of left anterior fascicular block and LVH changes on her EKG. I will start her on low-dose metoprolol as well as give her some IV Lasix as she has some evidence of congestive heart failure. [id number] ultrasound of her lungs shows bibasilar B-lines no pleural effusion no consolidation. [id number] ultrasound of her heart was limited however the views that I could see from the parasternal long and short axis and apical four-chamber view her LV function appears only mildly impaired and I did not detect any regional wall motion abnormalities. She has LVH. She also appears to have RV enlargement. I did not detect any significant mitral regurgitation nor aortic insufficiency or aortic stenosis. I will get a formal echocardiogram on Saturday. Exam Narrative Exam Narrative: Morbidly obese female who is alert and oriented please place time circumstance. Neck is obese difficult to discern any JVD. Chest wall is obese. Lungs with some scattered coarse lung sounds that sound to be more upper airway adventitious sounds. She has some bibasilar rales. Heart is regular rate and rhythm no appreciable murmur rub or gallop. Abdomen obese soft nontender. Lower extremities obese with 1+ pitting edema over the pretibial and pedal surfaces without cyanosis. Objective Last Vital Signs Temp 36.4 C L 07/09/20 08:05 Pulse 102 H 07/09/20 08:00 Resp 22 07/09/20 09:00 BP 154/70 H 07/09/20 08:00 Pulse Ox 87 L 07/09/20 09:00 Laboratory Results - last 24 hr 07/08/20 07/08/20 07/08/20 12:03 12:03 12:03 WBC 11.71 H RBC 3.41 L Hgb 10.2 L Hct 32.2 L MCV 94.4 MCH 29.9 MCHC 31.7 L RDW 15.5 H Plt Count 132 MPV 10.0 Immature Gran % 1.4 Neutrophils % 89.0 Lymphocytes % 2.6 Monocytes % 6.6 Eosinophils % 0.2 Basophils % 0.2 Nucleated RBC % 0 Absolute Neutrophils 10.42 H Absolute Lymphocytes 0.30 L Absolute Monocytes 0.77 Absolute Eosinophils 0.02 Absolute Basophils 0.02 PT 9.9 INR 1.0 APTT 21.1 Sodium 139 Potassium 3.3 L Chloride 104 Carbon Dioxide 31.6 Anion Gap 3.4 BUN 15 Creatinine 0.57 Estimated GFR/1.73 m2 >= 60.00 Glucose 115 H Calcium 8.0 L Magnesium 1.4 L Total Bilirubin 0.4 AST 20 ALT 47 Alkaline Phosphatase 145 H Troponin I 0.53 H* NT-Pro-B Natriuret Pep Total Protein 5.2 L Albumin 2.3 L Urine Color Urine Clarity Urine pH Ur Specific [place] Urine Protein Urine Ketones Urine Blood Urine Nitrite Urine Bilirubin Urine Urobilinogen Ur Leukocyte Esterase Urine RBC Urine WBC Ur Epithelial Cells Urine Crystals Urine Bacteria Urine Casts Urine Mucus Urine Other Ur Culture Indicated? Urine Glucose 07/08/20 07/08/20 07/08/20 13:47 15:08 18:03 WBC RBC Hgb Hct MCV MCH MCHC RDW Plt Count MPV Immature Gran % Neutrophils % Lymphocytes % Monocytes % Eosinophils % Basophils % Nucleated RBC % Absolute Neutrophils Absolute Lymphocytes Absolute Monocytes Absolute Eosinophils Absolute Basophils PT INR APTT Sodium Potassium Chloride Carbon Dioxide Anion Gap BUN Creatinine Estimated GFR/1.73 m2 Glucose Calcium Magnesium Total Bilirubin AST ALT Alkaline Phosphatase Troponin I 0.83 H* 0.90 H* NT-Pro-B Natriuret Pep Total Protein Albumin Urine Color Yellow Urine Clarity Sl cloudy Urine pH 7.5 Ur Specific [place] 1.015 Urine Protein Negative Urine Ketones Negative Urine Blood Trace-intact H Urine Nitrite Negative Urine Bilirubin Negative Urine Urobilinogen 0.2 Ur Leukocyte Esterase Trace H Urine RBC 0-2 Urine WBC 0-2 Ur Epithelial Cells Moderate Urine Crystals Many amorphous Urine Bacteria Rare Urine Casts Negative Urine Mucus Negative Urine Other Few transitional Ur Culture Indicated? No/sq. contamination Urine Glucose Negative 07/09/20 07/09/20 06:32 06:32 WBC RBC Hgb Hct MCV MCH MCHC RDW Plt Count MPV Immature Gran % Neutrophils % Lymphocytes % Monocytes % Eosinophils % Basophils % Nucleated RBC % Absolute Neutrophils Absolute Lymphocytes Absolute Monocytes Absolute Eosinophils Absolute Basophils PT INR APTT Sodium Potassium 4.0 D Chloride Carbon Dioxide Anion Gap BUN Creatinine Estimated GFR/1.73 m2 Glucose Calcium Magnesium 2.1 Total Bilirubin AST ALT Alkaline Phosphatase Troponin I 0.83 H* NT-Pro-B Natriuret Pep 2171 H Total Protein Albumin Urine Color Urine Clarity Urine pH Ur Specific [place] Urine Protein Urine Ketones Urine Blood Urine Nitrite Urine Bilirubin Urine Urobilinogen Ur Leukocyte Esterase Urine RBC Urine WBC Ur Epithelial Cells Urine Crystals Urine Bacteria Urine Casts Urine Mucus Urine Other Ur Culture Indicated? Urine Glucose
[2020-07-09 12:41] LABS: Troponin I 0.57 ng/mL (<0.06)
[2020-07-09 14:05] LABS: Bilirubin Negative (Negative); Blood Negative (Negative); Clarity Clear (Clear); Glucose Negative (Negative); Ketones Negative (Negative); Leukocyte Esterase Negative (Negative); Nitrite Negative (Negative); Urobilinogen 0.2 EU/dL (Up TO 0.2); pH 6.5 (5-8)
[2020-07-09 15:12] LABS: COVID-19 RT-PCR UVMMC Result Negative (Negative)
[2020-07-09] MEDS: Dexamethasone 4 MG TAB PO (21:11)
[2020-07-09 22:58] LABS: HCT 42.1 % (36.0-46.0); HGB 12.6 g/dL (11.2-15.7)
[2020-07-10] VITALS (26 sets, daily range): BP systolic 94–154; BP diastolic 55–121; PULSE 76–118; RESP 12–30; TEMP 35.7–37.4; O2SAT 94–100
--- NOTE | 2020-07-10 | DI.CT_ITS ---
EXAM: CT HEAD - STROKE PROTOCOL CLINICAL HISTORY: acute CVA TECHNIQUE: COMPARISON: CT CT HEAD WO from 06/03/[address] HEAD - STROKE PROTOCOL from 07/10/[address]: [address] was performed at 0930 hours and again at [address] angiography was planned, but the patient was unable to cooperate with the examination and noncontrast studies only were obtained. Note is again made of previously described apparent lytic right parietal bone metastasis with epidur al component, grossly unchanged from prior studies. Diffuse atrophy and white matter changes again n oted, stable. No evidence of acute intracranial hemorrhage, mass effect, or midline shift. No morrison e between the 0930 hours examination and the 1228 hours examination. IMPRESSION: Stable appearance of the brain by noncontrast criteria. CT angiography not performed due to lack of ability of the patient to cooperate. RADIATION DOSE DELIVERED: 1,691.98mGy.cm Total DLP
[2020-07-10] MEDS: Metoprolol 25 MG TAB PO (00:47)
[2020-07-10 07:06] LABS: HGB 12.9 g/dL (11.2-15.7); MCHC 32.3 % (32.0-36.0); MPV 10.3 fL (8.0-11.0); Platelet Count 190 10^3/uL (130-400); RDW 15.2 % (11.7-14.6); RDW-SD 52.3 fL; WBC 12.26 10^3/uL (4.4-10.8)
[2020-07-10 07:53] LABS: ALT 44 U/L (14-59); AST 22 U/L (15-37); Albumin 2.8 g/dL (3.4-5.0); Alkaline Phosphatase 179 U/L (46-116); Anion Gap 8.8 mmol/L (3-11); BUN 25 mg/dL (7-18); Bilirubin, Total 0.7 mg/dL (0.2-1.0); CO2 33.2 mmol/L (21.0-32.0); CREATININE 0.83 mg/dL (0.55-1.02); Chloride 93 mmol/L (98-107); Glucose 151 mg/dL (74-106); Potassium 4.3 mmol/L (3.5-5.1); Sodium 135 mmol/L (136-145); Total Protein 6.8 g/dL (6.4-8.2)
[2020-07-10 08:00] LABS: Troponin I 0.33 ng/mL (<0.06)
[2020-07-10] MEDS: LORazepam 1 MG TAB PO (08:08)
[2020-07-10] MEDS: Normal Saline Flush 10 ML SYR IVP ×5 (08:08→20:12)
[2020-07-10] MEDS: Esomeprazole 40 MG CAPCR PO (08:08)
[2020-07-10] MEDS: Furosemide 20 MG/2 ML VIAL IVP (08:09)
[2020-07-10] MEDS: Ondansetron 4 MG/2 ML VIAL IVP ×2 (08:09→11:53)
--- NOTE | 2020-07-10 08:52 | PDOC.CMPRO ---
- If Service Date Differs Date of service: 07/10/20 Time of Service: 08:52 Care Management Progress Note S/O: Since admission, Sindi has had transient confusion and developed right-sided paresis today. Yesterday, [place] [facility] [place]. Today, a review of her chart reveals some improvement in her right-sided paresis. CT angiography and noncontrast studies were ordered for today but due to patient becoming agitated, only the noncontrast CT scan of her head could be obtained. An echocardiogram is ordered for Saturday. CM will continue to follow. A: Sindi is a 69 year old female admitted to [facility] on 07/09/20 for nausea and elevated troponin. P: Plan is currently undetermined and is based on Sindi's progress. CM will continue to support patient, family and discharge planning needs.
[2020-07-10] MEDS: Haloperidol 5 MG/ML VIAL 4 MG IM/IV (09:50)
[2020-07-10] MEDS: diazePAM 10 MG/2 ML SYR 5 MG IVP ×3 (10:10→12:35)
--- NOTE | 2020-07-10 10:12 | W.PM.PROGNOT ---
Date of Service Date of service: 07/10/20 Time of Service: 09:15 Assessment and Plan Assessment and plan (1) Acute alteration in mental status: Status: Acute Assessment and plan: Suspect acute CVA, differential diagnosis includes cerebral hemorrhage versus cardioembolic CVA versus acute thrombus, versus cerebral metastasis. We will get stat CT of her brain. (2) Non-ST elevation myocardial infarction (NSTEMI): Status: Acute Assessment and plan: Patient declined transfer to [facility] for cardiac catheterization. We have been treating her medically with beta-blockers aspirin and she had been on apixaban for previous pulmonary embolus. Apixaban and aspirin on hold pending results of her CT of her head. Troponins are trending downward. Echocardiogram is pending tomorrow. (3) History of pulmonary embolism: Status: Acute Assessment and plan: Apixaban on hold pending results of her CT scan (4) Breast cancer metastasized to bone: Status: Acute Assessment and plan: Check CT scan of the head to rule out brain mets versus CVA Qualifiers: Laterality: unspecified laterality Qualified Code(s): C50.919 - Malignant neoplasm of unspecified site of unspecified female breast; C79.51 - Secondary malignant neoplasm of bone (5) Lung cancer: Status: Chronic Assessment and plan: Follow-up with your oncologist regarding results of recent lung biopsy. Qualifiers: Laterality: unspecified laterality Lung location: unspecified part of lung Qualified Code(s): C34.90 - Malignant neoplasm of unspecified part of unspecified bronchus or lung Subjective Subjective Interval history since last seen: Patient with acute mental status change this morning. Apparently patient had a brief episode last night of some confusion with some dysarthric speech. [employer] was notified and CT scan of the head was ordered for this morning. Her symptoms completely resolved during the night but this morning patient developed acute change in her neuro status this morning witnessed by her nurse. Patient has been totally alert and oriented and acting appropriate for her nurse this morning and developed listlessness and was not following commands with some garbled speech and facial asymmetry along with right-sided paraparesis of her right hand and arm. Exam Narrative Exam Narrative: Patient lethargic but restless and not oriented. Speech is dysarthric and she is not able to follow commands. GCS 10 (E3, V2, M5) HEENT eyes are deviated to the right she seems to be neglectful of the left side. Pupils are constricted to about 3 mm but equally reactive cannot get her to track to her left side. Gag reflex is absent. Tongue appears to be midline. There is a prominent right facial droop Motor exam she seems to be paretic in the right hand and right arm and not using the hand or arm with passive elevation arm drops to the bed. Left hand and arm she seems to have fairly good strength and is pulling at the sheets and grabbing my hand. Exam of her legs she seems to be moving both legs kicking at the bed. Babinski reflex seems to be present bilaterally. Unable to determine sensory localization. Objective Last Vital Signs Temp 35.7 C L 07/10/20 07:40 Pulse 79 07/10/20 03:51 Resp 15 07/10/20 03:51 BP 128/60 07/09/20 23:01 Pulse Ox 96 07/10/20 03:51 Laboratory Results - last 24 hr 07/08/20 07/09/20 07/09/20 18:10 06:35 12:08 WBC RBC Hgb 12.6 D Hct 42.1 D MCV MCH MCHC RDW Plt Count MPV Sodium Potassium Chloride Carbon Dioxide Anion Gap BUN Creatinine Estimated GFR/1.73 m2 Glucose Calcium Total Bilirubin AST ALT Alkaline Phosphatase Troponin I 0.57 H* Total Protein Albumin Urine Color Urine Clarity Urine pH Ur Specific [place] Urine Protein Urine Ketones Urine Blood Urine Nitrite Urine Bilirubin Urine Urobilinogen Ur Leukocyte Esterase Urine Glucose COVID-19 PCR Negative Nasopharyn COVID-19 PCR Not Applicable Ref Test Perform Site [facility] 07/09/20 07/10/20 07/10/20 13:40 06:34 06:34 WBC 12.26 H RBC 4.30 Hgb 12.9 Hct 40.0 MCV 93.0 MCH 30.0 MCHC 32.3 RDW 15.2 H Plt Count 190 MPV 10.3 Sodium 135 L Potassium 4.3 Chloride 93 L Carbon Dioxide 33.2 H Anion Gap 8.8 BUN 25 H D Creatinine 0.83 Estimated GFR/1.73 m2 >= 60.00 Glucose 151 H Calcium 10.0 Total Bilirubin 0.7 AST 22 ALT 44 Alkaline Phosphatase 179 H Troponin I 0.33 H* Total Protein 6.8 Albumin 2.8 L Urine Color Yellow Urine Clarity Clear Urine pH 6.5 Ur Specific [place] 1.020 Urine Protein Negative Urine Ketones Negative Urine Blood Negative Urine Nitrite Negative Urine Bilirubin Negative Urine Urobilinogen 0.2 Ur Leukocyte Esterase Negative Urine Glucose Negative COVID-19 PCR Nasopharyn COVID-19 PCR Ref Test Perform Site
--- NOTE | 2020-07-10 10:40 | DI.VRAD_ITS ---
Addendum created by Sandra Pacheco MD on 07/10/2020 10:51:44 AM EDT: Critical results: THIS REPORT CONTAINS FINDINGS THAT MAY BE CRITICAL / URGENT (stroke protocol) TO PATIENT CARE. The findings were verbally communicated via telephone conference with Capo Le at 10:43 AM EDT on 07/10/2020. The findings were acknowledged and understood. Initial report created on 07/10/2020 10:40:11 AM EDT: PROCEDURE INFORMATION: Exam: CT Head Without Contrast Exam date and time: 07/10/2020 9:25 AM Age: 69 years old Clinical indication: Other: Acute mental status change TECHNIQUE: Imaging protocol: Computed tomography of the head without contrast. Radiation optimization: All CT scans at this facility use at least one of these dose optimization techniques: automated exposure control; mA and/or kV adjustment per patient size (includes targeted exams where dose is matched to clinical indication); or iterative reconstruction. Other technique: STROKE PROTOCOL was implemented. COMPARISON: 1. CT HEAD WO 06/03/2020 8:35 PM 2. NM BONE SCAN WHOLE BODY GRP 12/02/2019 2:09:[address] HEAD WO 11/02/2019 9:29:34 PM FINDINGS: Brain: There is no acute parenchymal hemorrhage. There is mild lucency in the cerebral white matter, likely microvascular disease although non-specific. Pascual white differentiation is intact. There is no mass effect or midline shift. Cerebral ventricles: The ventricles and sulci are enlarged, consistent with age related volume loss / atrophy. No hydrocephalus. Bones/joints: See Soft tissues finding. Paranasal sinuses: Small amount of mucosal thickening right maxillary sinus and bilateral ethmoid air cells. Mastoid air cells: No significant mastoid effusion. Vasculature: There is vascular calcification. Soft tissues: There is stable area of permeative lucency in the right parietal skull with adjacent extra-axial soft tissue density measuring 1.5 cm x 2 cm x 0.8 cm which appears similar to prior 06/03/2020 examination and increased from older prior 11/02/2019 examination. This is in region abnormal uptake on prior nuclear medicine bone scan and is consistent with a bony metastasis with adjacent epidural tumor. This causes no significant mass effect on the brain. IMPRESSION: 1. 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 There is adjacent mild epidural tumor not significantly changed from most recent comparison study. 2. Atrophy and microvascular disease. ASSESSMENT: ASPECTS ([place] Stroke Program Early CT Score) is 10. Dictated and Authenticated by: Sandra Pacheco MD. Ordering:[facility] Mimi Scanlon MD
[2020-07-10] MEDS: Pantoprazole 40 MG VIAL IVP (11:53)
[2020-07-10] MEDS: fentaNYL 50 MCG PATCH TD (11:55)
[2020-07-10] MEDS: fentaNYL 12 MCG PATCH TD (11:55)
[2020-07-10] MEDS: Aspirin 300 MG SUPP PR (11:56)
[2020-07-10] MEDS: ACETAMINOPHEN 1,000 MG/100 ML BTL 400 MG IVPB ×2 (13:15→20:12)
[2020-07-10] MEDS: Normal Saline 500 ML IV (13:15)
--- NOTE | 2020-07-10 13:18 | DI.VRAD_ITS ---
PROCEDURE INFORMATION: Exam: CT Head Without Contrast Exam date and time: 07/10/2020 10:54 AM Age: 69 years old Clinical indication: Altered mental status/memory loss; Confusion or disorientation TECHNIQUE: Imaging protocol: Computed tomography of the head without contrast. Other technique: STROKE PROTOCOL was implemented. COMPARISON: CT HEAD - STROKE PROTOCOL 07/10/2020 9:34 AM FINDINGS: Brain: Again seen is lucency in cerebral white matter. There is no acute loss of farooq-white differentiation to suggest acute territorial infarct. There is no hemorrhage. There is no evidence brain vasogenic edema to suggest a significant intra-axial mass lesion. Cerebral ventricles: No ventriculomegaly. Bones/joints: No acute fracture. Paranasal sinuses: Again seen is minimal mucosal thickening right maxillary and bilateral ethmoid sinuses. Mastoid air cells: No significant mastoid effusion. Soft tissues: Again seen is permeative destructive lesion right parietal skull with adjacent epidural soft tissue consistent with metastatic lesion. No edema or mass in adjacent brain. Other findings: Limitations. Patient combative and CTA could not be obtained at this sandhya. Repeat CT head is partially motion limited. IMPRESSION: 1. No evidence of interval acute finding. No acute loss farooq-white differentiation or acute hemorrhage evident. 2. Stable metastatic focus to right parietal skull with small amount of adjacent epidural tumor. ASSESSMENT: ASPECTS ([place] Stroke Program Early CT Score) is 10. Dictated and Authenticated by: Sandra Pacheco MD. Ordering:[facility] Mimi Scanlon MD
[2020-07-10] MEDS: levETIRAcetam 1,000 MG in Normal Saline 100 ML 400 MG IVPB (13:35)
[2020-07-10] MEDS: Metoprolol 5 MG/5 ML VIAL IVP (15:13)
--- NOTE | 2020-07-10 15:31 | NUR.NOTE ---
Nursing Note: 1500 Discussion with the patient's and daughter about the patient's goals of care. The patient is unable to participate at this time due to mental status changes. Pt is being prepped for a CT scan but there is question is whether this is consistent with patient's goals of care. The patient's , daughter, and this nurse (Rainer Warren RN) reviewed her advance directive which supported the family's sense that the patient wishes only those interventions that promote comfort. The pt's family stated specifically that she would not want the CT scan done if it will not provide information that enhances comfort measures and affirmed that at this time comfort measures only best supports the patient's goals of care as they understand them per previous discussions and patient's COLST form.
[2020-07-10] MEDS: MORPHine 2 MG/ML SYR IVP (16:21)
[2020-07-10] MEDS: HYDROmorphone 100 MG in Normal Saline 240 ML IV (20:45)
[2020-07-10] MEDS: Patch Removal 2 EACH TD (21:56)
[2020-07-11] VITALS: BP 107/62; RESP 6; TEMP 36
[2020-07-11] MEDS: levETIRAcetam 500 MG in Normal Saline 100 ML 400 MG IVPB
--- NOTE | 2020-07-11 03:23 | NUR.NOTE ---
0230-pt having 20 sec. periods of apnea. Snorting respirations. u/o 50 cc since evening shift. Only moans to sternal rub.pt remains comfort care.
[2020-07-11 03:49] VITALS: BP 107/62; PULSE 100
[2020-07-11 04:19] VITALS: TEMP 36
[2020-07-11] MEDS: ACETAMINOPHEN 1,000 MG/100 ML BTL 400 MG IVPB (04:19)
--- NOTE | 2020-07-11 04:41 | NUR.NOTE ---
PT NOW HAVING JUAN FIELDS RESPIRATIONS. lONG PERIODS OF APNEA. REPOSITIONED IN BED. PT UNRESPONSIVE. ORAL CARE DONE.
--- NOTE | 2020-07-11 07:49 | PCNE_ITS ---
Date of service: 07/11/20 Time of Service: 06:49 History of Present Illness Narrative: Sindi is a 69-year-old woman with metastatic lung cancer and history of breast cancer. She has recently had a PE and has come in to [facility] with a non-STEMI. She refused transfer. Over the last couple of days she has had a rapid decline. There is question as to whether or not she has had a stroke. She has recently been started on comfort care. I am going in to see her. I have known Sindi now for quite some time. She has not wanted aggressive care. And [place] [facility] [place] with her past wishes. We have completed a Hamida she is a DNR. She does live with her who does get easily confused and has many comorbidities himself Consults Consult date: 07/11/20 Requesting physician: Capo Le Assessment and Plan Assessment and plan (1) Acute alteration in mental status: Status: Acute (2) History of pulmonary embolism: Status: Acute (3) Non-ST elevation myocardial infarction (NSTEMI): Status: Acute (4) History of lung cancer: Status: Acute (5) Palliative care patient: Status: Acute Assessment and plan: Sindi appears to be actively dying. I would not be surprised if she today. She looks fairly comfortable and they are able to increase the Dilaudid drip if necessary. Due to her upper airway secretions I requested a scopolamine patch. I do not think she is a candidate for hospice at home due to her 's inability to care for her. I do think comfort care is in keeping with her requests and conversations that we have had over the last 5 months. I did speak with nursing and Dr. Aguilar regarding her condition. Thank you very much for this consult Review of Systems Narrative: Sindi is comatose in the room. She does not respond to gentle prod ding or loud voice Unobtainable due to mental condition [facility] Medical History (Updated 07/11/20 @ 07:53 by Lyly Ramos MD, [place]) Adopted Chest discomfort r/t to pt. lung cancer Chronic pain of left knee (04/11/16) She sees Dr. Gee for this. Colon polyp (05/09/14) 04/23/14 tubular adenoma x 2 08/2017 tubular adenoma x 8 Denial as mental defense mechanism helps her cope; she is self-aware of her denial Discharge planning issues DVT prophylaxis Ear pain, left ? 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 Granddaughter No problems noted. Social History Smoking/Tobacco Use Status: Former Tobacco Use Quit Date: 10/07/84 Tobacco: How many years used: 20 Second Hand Exposure: Yes Alcohol Intake: former Drug use: Daily Substance use type: marijuana Counseling given: No Counseling provided: none Details: recently started with marijuana edibles. Adopted: Yes Caregiver/Support person: Yes Household members: spouse Housing: house Number of Children: 1 number of grandchildren: 2 Communication Needs: Corrective Lenses Education Level: high school Do you need help understanding health information?: Often Pets and animals: Yes (Selam Hair cats x 2) Pets and animals: cat(s) Current gender identity: female What is your relationship status?: How often do you talk on the phone with friends or family?: once per week How often do you get together with friends or relatives?: once per week How often do you attend yazdanism or baptist services?: decline to answer Do you belong to any clubs or organized social groups?: no Panel score (0-1 are the most socially isolated patients): 1 What type of physical activity do you participate in: walking, occasional exercise and sedentary lifestyle Duration: < 15 minutes/day Frequency: 1-2 times per week Keli/Spiritism: [facility] keli needs: No Seatbelt use: always Drive intox or ride w/intox long haul truck 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 They are very happy. They love to go for long car rides together. Some estrangement from daughter, unclear. Exam Narrative Exam Narrative: Sindi looks like she is actively dying. Her respirations are at around 6. There are some brief periods of apnea. She does not respond to prodding or loud voice. She does have a little brow wrinkling when I move her from my exam. Her heart is tachycardic. I do not detect any murmurs. Lungs very shallow breath. She does have loud secretions in her upper airways. Results Last Vital Signs Temp 96.8 F L 07/11/20 04:19 Pulse 100 H 07/11/20 03:49 Resp 6 L 07/11/20 00:00 BP 107/62 07/11/20 03:49 Pulse Ox 97 07/10/20 17:09 Labs Result diagrams: 07/10/20 06:34 07/10/20 06:34 Labs: Laboratory Results - last 24 hr 07/10/20 06:34 Sodium 135 L Potassium 4.3 Chloride 93 L Carbon Dioxide 33.2 H Anion Gap 8.8 BUN 25 H D Creatinine 0.83 Estimated GFR/1.73 m2 >= 60.00 Glucose 151 H Calcium 10.0 Total Bilirubin 0.7 AST 22 ALT 44 Alkaline Phosphatase 179 H Troponin I 0.33 H* Total Protein 6.8 Albumin 2.8 L
[2020-07-11] MEDS: Scopolamine 1 MG/3 DAYS PATCH TD (08:12)
--- NOTE | 2020-07-11 08:13 | PDOC.CMPRO ---
Care Management Progress Note S/O: Since admission, Sindi has had transient confusion and developed right-sided paresis today. Sindi will have an echocardiogram today to inform next steps in treatment. Sindi participated in a Palliative consult with Dr. 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 She reports Sindi's resides at home and has some baseline confusion. CM will continue to follow. A: Sindi is a 69 year old female admitted to [facility] on 07/09/20 for nausea and elevated troponin. P: Sindi has been transitioned to comfort care at this time; undetermined if she will be permitted to return home, or if other arrangements will be coordinated at this time. CM will continue to support patient, family and discharge planning needs.
--- NOTE | 2020-07-11 08:15 | NUR.NOTE ---
Nursing Note: Patient is on comfort measures. Pt is non-responsive. Pt has no signs of discomfort. Pt's daughter contacted and updated regarding deteriating condition. Pt's daughter states she will be coming in now.
--- NOTE | 2020-07-11 09:55 | NUR.NOTE ---
Nursing Note: Patients daughter, Freya and spouse arrived at 0900 and have been sitting at her bedside. [facility] Zipper Machine OperatorFarnaz is present in the room.
--- NOTE | 2020-07-11 10:49 | EXPE_ITS ---
Date of service: 07/11/20 Time of Service: 10:49 Discharge Sum: Prov Provider Consults: 07/11/20 07:37 Palliative Care Consult [CONS] Routine Consultation Status:: Contact made by Clarification:: Manage/follow per spec. Reason for consult:: Assist with end-of-life care Discharge Sum: Diag Contributing Factors (1) Acute alteration in mental status: (2) History of pulmonary embolism: (3) Non-ST elevation myocardial infarction (NSTEMI): (4) History of lung cancer: (5) Palliative care patient: (6) Cerebrovascular accident: Discharge Sum: Summary Date and Time Admission Date: 07/08/2010/03/20 09:41 Date of : 07/11/20 Time of : 10:24 Additional Data Confirmation of as documented by pronouncing clinician: no pulse, no respirations, no heart sounds and pupils fixed and dilated Family: at bedside Additional persons at bedside: biomedical engineering aide Attending/PCP notified?: Yes Attending Physician: Herman Sharp Was code activated?: No Autopsy requested?: No gas examiner notified?: No Organ bank notified?: Yes Advance directives: Yes Hospice patient?: No
== END 2020-07-11 10:40 | disposition expired ==
LOC: ER 18:20 → ICU 18:52
PROVIDERS: Internal Medicine; Admitting Provider General Practice; Emergency Provider Physician Assistant; PCP Family Medicine; Visit Provider General Practice
DX: I21.4 Non-ST elevation (NSTEMI) myocardial infarction (principal); I63.9 Cerebral infarction, unspecified; G81.91 Hemiplegia, unspecified affecting right dominant side; C34.90 Malignant neoplasm of unspecified part of unspecified bronchus or lung; C79.51 Secondary malignant neoplasm of bone; C77.9 Secondary and unspecified malignant neoplasm of lymph node, unspecified; Z86.711 Personal history of pulmonary embolism; Z85.3 Personal history of malignant neoplasm of breast; Z51.5 Encounter for palliative care; Z79.01 Long term (current) use of anticoagulants; R47.1 Dysarthria and anarthria; R11.0 Nausea; I10 Essential (primary) hypertension; K21.9 Gastro-esophageal reflux disease without esophagitis; E78.5 Hyperlipidemia, unspecified; M54.5 Low back pain; I83.90 Asymptomatic varicose veins of unspecified lower extremity
CPT/HCPCS: 36415; 71275; 74177; 80053; 85027; 93005; 96361; 96365; 96366; 96367; 96375; 99222; 99233; 99238; 99254; 99285; 99291; U0003; 70450; 81003; 81015; 83735; 83880; 84132; 84484; 85014; 85018; 85025; 85610; 85730; 87086; 93010; 99219; G0378; J0131; J1170; J1630; J1941; J1953; J2270; J2405; J3360; J3490; J7512; J8540